=== PATIENT | female | born 1945 | race Caucasian/White ===

== ENCOUNTER 2018-01-08 10:19 | Day surgery (SDC) | payer MEDICARE, OTHER ==
[2018-01-04 13:22] VITALS: BMI 29.6
[~2018-01-08 10:19] MED LIST: LACTATED RINGERS 1,000 ML IV SCH
[2018-01-08 11:11] VITALS: RESP 16; TEMP 98.1
[2018-01-08] MEDS ORDERED: LIDOCAINE 1% 20 ML VIAL (10MG/ML) FOR IV START INTRADERMA ONE (11:20)
[2018-01-08] MEDS ORDERED: PROPOFOL 10 MG/ML 20 ML VIAL IV ONE (11:21)
--- NOTE | 2018-01-08 11:35 | P.GSHP ---
History of Present Illness H&P Date: 01/08/18 Chief Complaint: Screening colonoscopy This is a 72-year-old female referred from Dr. Karin Parikh. Patient safe for screening colonoscopy. Her last colonoscopy was over 10 years ago. She has a history of diverticulosis. Past Medical History Past Medical History: GERD/Reflux, Hyperlipidemia, Hypertension, Osteoarthritis (OA) Additional Past Medical History / Comment(s): HX OF KIDNEY STONES, HERNIATED DISCS WITH BACK PAIN, IBS, GOUT. History of Any Multi-Drug Resistant Organisms: None Reported Past Surgical History: Appendectomy, Hysterectomy, Orthopedic Surgery Additional Past Surgical History / Comment(s): RIGHT KNEE SURGERY Past Anesthesia/Blood Transfusion Reactions: Postoperative Nausea & Vomiting ( PONV) Past Psychological History: No Psychological Hx Reported Additional Psychological History / Comment(s): . Smoking Status: Never smoker Past Alcohol Use History: None Reported Past Drug Use History: None Reported - Past Family History Son(s) Family Medical History: Cancer Medications and Allergies Home Medications Medication Instructions Recorded Confirmed Type Cholecalciferol [Vitamin D3] 4,000 units PO DAILY 03/20/14 01/08/18 History Atorvastatin [Lipitor] 40 mg PO HS 05/12/15 01/08/18 History Pantoprazole Sodium 40 mg PO DAILY PRN 05/12/15 01/08/18 History Allopurinol [Zyloprim] 300 mg PO DAILY 10/10/16 01/08/18 History Naproxen Sodium [Aleve] 440 mg PO DAILY PRN 10/10/16 01/04/18 History Indapamide [Lozol] 2.5 mg PO DAILY 01/04/18 01/08/18 History Lisinopril 40 mg PO DAILY 01/04/18 01/08/18 History Allergies Allergy/AdvReac Type Severity Reaction Status Date / Time gabapentin [From Neurontin] AdvReac Nausea & Verified 01/04/18 12:53 Vomiting PAIN MEDS AdvReac Nausea & Uncoded 01/04/18 12:53 Vomiting Surgical - Exam Vital Signs Temp Pulse Resp BP Pulse Ox 98.1 F 86 16 145/87 99 01/08/18 11:09 01/08/18 11:09 01/08/18 11:09 01/08/18 11:09 01/08/18 11:09 - General well developed, no distress - Eyes PERRL - ENT normal pinna - Neck no masses - Respiratory normal expansion - Cardiovascular Rhythm: regular - Abdomen Abdomen: soft, non tender Assessment and Plan Assessment: History diverticulosis. We'll perform screening colonoscopy.
--- NOTE | 2018-01-08 11:56 | P.OP ---
Date of Procedure: 01/08/18 Preoperative Diagnosis: Screening colonoscopy Postoperative Diagnosis: Diverticulosis Procedure(s) Performed: Colonoscopy Anesthesia: MAC Surgeon: Ronny Ferrera Pathology: none sent Condition: stable Disposition: PACU Description of Procedure: The patient's placed on the endoscopy table in the lateral position. She received IV sedation. Digital rectal exam was performed which revealed no abnormalities. The flexible colonoscope was then placed patient anus passed throughout the entire colon. The ileocecal valve was visualized. The cecum, ascending and transverse colon appeared normal. In the descending and sigmoid there is mild to moderate diverticulosis. Scope was then brought back the rectum this appeared normal. Scope was withdrawn for patient.
[2018-01-08 12:11] VITALS: PULSE 77
[2018-01-08 12:23] VITALS: BP 150/71
== END 2018-01-08 12:43 | disposition home or self-care (01) ==
LOC: ORWHC2ENDO 10:19
PROVIDERS: ATTEND Surgery
DX: Z12.11 Encounter for screening for malignant neoplasm of colon (principal); K57.30 Diverticulosis of large intestine without perforation or abscess without bleeding; K21.9 Gastro-esophageal reflux disease without esophagitis; E78.5 Hyperlipidemia, unspecified; I10 Essential (primary) hypertension; M19.90 Unspecified osteoarthritis, unspecified site; K58.9 Irritable bowel syndrome, unspecified; M10.9 Gout, unspecified; Z79.899 Other long term (current) drug therapy; Z88.8 Allergy status to other drugs, medicaments and biological substances
CPT/HCPCS: J2704; G0121; 45378

== ENCOUNTER → 2018-07-05 | Outpatient (CLI) | payer MEDICARE, OTHER ==
--- NOTE | 2018-07-05 17:26 | MR ---
EXAMINATION TYPE: MR lumbar spine wo/w con DATE OF EXAM: 07/05/2018 COMPARISON: NONE HISTORY: Back pain Contrast: 10 mL Gadavist TECHNIQUE: T1 and T2 axial and sagittal, postcontrast T1 axial and sagittal images of the lumbar spi ne are submitted. FINDINGS: There is no abnormal signal seen within the visualized spinal cord. There is a complex mass off the posterior left kidney which is stable dating back to a CT scan of 06/11/2013 suggestive of an angiomyolipoma. Multiple vertebral body hemangiomas are noted. There is anterior spurring at multipl e levels.. At T12-L1 there is posterior spondylosis there is broad-based central disc bulging. Facet arthropathy and ligamentum flavum hypertrophy noted. Mild bilateral foraminal encroachment. At L1-2 there is broad-based disc bulging greater paracentrally to the right. Moderate bilateral fora jasmine encroachment. Borderline central stenosis facet arthropathy and ligamentum flavum hypertrophy. At L2-3 there is degenerative disc disease with facet arthropathy and ligamentum flavum hypertrophy. Broad-based disc protrusion with moderate bilateral foraminal encroachment and mild central stenosis. At L3-4 there is degenerative disc disease with severe hypertrophic change of the ligamentum flavum a nd facets. Broad-based disc protrusion with severe spinal stenosis and bilateral foraminal encroachme nt. At L4-5 there is degenerative disc disease, diffuse disc bulging with severe facet arthropathy. There is severe bilateral foraminal and mild central stenosis. At L5-S1 there is severe degenerative disc disease with circumferential disc bulging and facet arthro marivel. Mild to moderate bilateral foraminal encroachment. Mild effacement of thecal sac and borderlin e central stenosis. IMPRESSION: 1. Multilevel degenerative disc disease with multilevel disc protrusions and hypertrophic changes res ulting in multilevel spinal stenosis and significant foraminal encroachment. Most marked findings are seen at the L3-L4 with broad-based disc protrusion or herniation in combination with hypertrophic ch anges result in severe spinal stenosis and bilateral foraminal encroachment. 2. 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
== END ==
LOC: RADMRIMAIN 14:20
PROVIDERS: ATTEND Family Medicine
DX: M48.061 Spinal stenosis, lumbar region without neurogenic claudication (principal); M51.26 Other intervertebral disc displacement, lumbar region; M51.36 Other intervertebral disc degeneration, lumbar region
CPT/HCPCS: 82565; 84520; 72158; 36415; A9581

== ENCOUNTER → 2020-12-14 | Outpatient (CLI) | payer MEDICARE, OTHER ==
--- NOTE | 2020-12-14 13:09 | XR ---
Right hip HISTORY: Pain, remote history of trauma 2 views of the right hip There is marginal spurring present, mild joint space loss is questioned. Alignment is maintained, the re is no fracture or dislocation. There are dense vascular calcifications noted incidentally. Bone mi neralization may be slightly reduced. IMPRESSION: Osteoarthritis.
--- NOTE | 2020-12-14 13:18 | XR ---
Lumbar spine HISTORY: Back pain, trauma 2 months prior 3 views of the lumbar spine, correlation CT scan dated 07/11/2013 Bone mineralization is reduced. There is multilevel spondylosis. Sclerosis present in the posterior e lements of the lower lumbar spine is noted. Loss of disc height present at intervertebral levels sergio cially L5-S1 with associated vacuum phenomenon. There are dense vascular calcifications noted within the aorta. There is a regular calcification noted in the paraspinal location overlying the posterior T11-T12 rib space measuring at least 6.5 cm in cephalad to caudal dimension by 2.5 cm in transverse d imension which is incompletely visualized and may be due to renal mass. There is no acute fracture or subluxation. Osteopenia, degenerative disc disease and facet arthropath y. Indeterminate calcification may be associated with a left renal mass.
--- NOTE | 2020-12-14 14:12 | XR ---
Cervical spine HISTORY: Neck pain, trauma 2 months prior 4 views of the cervical spine Correlation to prior exam 10/10/2016 There is multilevel facet arthropathy change. Atherosclerotic vascular calcifications seen in the dis tribution of the carotid arteries. Aorta is dense. Odontoid view is limited. There is multilevel spondylosis. Some loss of disc height is present greate st at C5-6, C6-7 similar to prior exam. Cervical vertebral bodies show preserved height and alignment . Prevertebral soft tissues are normal. Bone mineralization is reduced. IMPRESSION: No acute fracture or subluxation. Degenerative disc disease and facet arthropathy, osteop enia. Additional findings above.
== END | disposition home or self-care (01) ==
LOC: RADXRMAIN 09:29
PROVIDERS: ATTEND Family Medicine
DX: M16.11 Unilateral primary osteoarthritis, right hip (principal); M50.30 Other cervical disc degeneration, unspecified cervical region; M85.88 Other specified disorders of bone density and structure, other site; M25.551 Pain in right hip
CPT/HCPCS: 72040; 72100; 73501

== ENCOUNTER → 2021-06-03 | Outpatient (CLI) | payer MEDICARE, OTHER ==
--- NOTE | 2021-06-07 09:57 | MM ---
Reason for exam: screening (asymptomatic). Last mammogram was performed 1 year and 6 months ago. History: Patient is postmenopausal. Benign excisional biopsy of the right breast. Took estrogen for 2 years beginning at age 49. Took progesterone for 2 years beginning at age 49. Physical Findings: A clinical breast exam by your physician is recommended on an annual basis and results should be correlated with mammographic findings. MG 3D Screening Mammo W/Cad Bilateral CC and MLO view(s) were taken. Prior study comparison: November 28, 2019, bilateral MG 3d screening mammo w/cad. September 19, 2018, bilateral MG 3d screening mammo w/cad. There are scattered fibroglandular densities. No significant changes when compared with prior studies. ASSESSMENT: Benign, BI-RAD 2 RECOMMENDATION: Routine screening mammogram of both breasts in 1 year.
== END | disposition home or self-care (01) ==
LOC: RADMAMWWP 12:27
PROVIDERS: ATTEND Family Medicine
DX: Z12.31 Encounter for screening mammogram for malignant neoplasm of breast (principal); Z78.0 Asymptomatic menopausal state; Z79.818 Long term (current) use of other agents affecting estrogen receptors and estrogen levels
CPT/HCPCS: 77063; 77067

== ENCOUNTER 2022-02-11 20:08 | Inpatient (IN) | payer MEDICARE, OTHER ==
[2022-02-11] MEDS ORDERED: METOCLOPRAMIDE 5 MG/ML 2 ML VIAL IVP STA (20:55)
[2022-02-11] MEDS ORDERED: diphenhydrAMINE 50 MG/ML 1 ML VIAL IVP STA (20:55)
[2022-02-11] MEDS ORDERED: HYDROmorphone 1 MG/ML 1 ML SYRINGE IVP STA (20:56)
--- NOTE | 2022-02-11 21:41 | XR ---
EXAMINATION TYPE: XR Hip LT and AP Pelvis DATE OF EXAM: 02/11/2022 9:19 PM INDICATION: Patient age:Female; 76 years old; Reason for study: hip fracture, fall; COMPARISON: None. TECHNIQUE: The left hip was examined in the frontal and lateral projections and a AP pelvis. FINDINGS: Acute fracture through the left proximal hip intertrochanteric region with varus deformity. No additional fractures identified. Pelvic fluid was present. There is degenerative changes of the h ips bilaterally with sclerosis and some early subchondral cystic change. Multilevel disc degeneration changes throughout the spine. IMPRESSION: Acute left proximal femur intertrochanteric fracture with varus deformity.
--- NOTE | 2022-02-11 21:45 | XR ---
EXAMINATION TYPE: XR chest 1V DATE OF EXAM: 02/11/2022 9:19 PM COMPARISON: None TECHNIQUE: XR chest 1V Frontal view of the chest. CLINICAL INDICATION:Female, 76 years old with history of Fall; FINDINGS: Lungs/Pleura: There is no evidence of pleural effusion, focal consolidation, or pneumothorax. Pulmonary vascularity: Unremarkable. Heart/mediastinum: Cardiomediastinal silhouette is unremarkable. Musculoskeletal: No acute osseous pathology. IMPRESSION: No acute cardiopulmonary disease/process.
--- NOTE | 2022-02-11 21:46 | ED ---
Fall HPI - General Chief Complaint: Fall Stated Complaint: Fall, Hip Injury Time Seen by Provider: 02/11/22 20:15 Source: EMS Mode of arrival: EMS - History of Present Illness Initial Comments: 76-year-old female with past medical history of hypertension, hyperlipidemia presents the emergency department after she had a fall. Patient reports to chronic right leg pain. States that her right leg gave out on her and she fell on the right side. Her to snap in her left hip. Patient was unable to get up and ambulate. She fell down onto a carpeted floor. Denies hitting her head. No neck or back pain. EMS was called and she was placed in c-collar. She was given form of grams of morphine for pain control and 4 mg of Zofran for nausea. Patient comes in shortened and rotated. Pulses are palpable. She follows with Dr. Hodge for chronic back pain. No other alleviating, precipitating or modifying factors - Related Data Home Medications Medication Instructions Recorded Confirmed Cholecalciferol [Vitamin D3] 2,000 units PO DAILY 03/20/14 02/11/22 Atorvastatin [Lipitor] 40 mg PO HS 05/12/15 02/11/22 Pantoprazole Sodium 40 mg PO DAILY PRN 05/12/15 02/11/22 allopurinoL [Zyloprim] 300 mg PO DAILY 10/10/16 02/11/22 Indapamide [Lozol] 2.5 mg PO DAILY 01/04/18 02/11/22 lisinopriL 40 mg PO DAILY 01/04/18 02/11/22 Baclofen [Lioresal] 10 mg PO HS 02/11/22 02/11/22 Naproxen 500 mg PO DAILY 02/11/22 02/11/22 Pioglitazone [Actos] 15 mg PO DAILY@1200 02/11/22 02/11/22 diphenhydrAMINE [Benadryl] 25 mg PO DAILY 02/11/22 02/11/22 Allergies Allergy/AdvReac Type Severity Reaction Status Date / Time gabapentin [From Neurontin] AdvReac Nausea & Verified 02/11/22 21:59 Vomiting PAIN MEDS AdvReac Nausea & Uncoded 02/11/22 20:13 Vomiting Review of Systems ROS Statement: Those systems with pertinent positive or pertinent negative responses have been documented in the HPI. ROS Other: All systems not noted in ROS Statement are negative. Past Medical History Past Medical History: GERD/Reflux, Hyperlipidemia, Hypertension, Osteoarthritis (OA) Additional Past Medical History / Comment(s): HX OF KIDNEY STONES, HERNIATED DISCS WITH BACK PAIN, IBS, GOUT. History of Any Multi-Drug Resistant Organisms: None Reported Past Surgical History: Appendectomy, Hysterectomy, Orthopedic Surgery Additional Past Surgical History / Comment(s): RIGHT KNEE SURGERY Past Anesthesia/Blood Transfusion Reactions: Postoperative Nausea & Vomiting (PONV) Past Psychological History: No Psychological Hx Reported Smoking Status: Never smoker Past Alcohol Use History: None Reported Past Drug Use History: None Reported - Past Family History Son(s) Family Medical History: Cancer General Exam Limitations: no limitations General appearance: alert, in no apparent distress Head exam: Present: atraumatic, normocephalic, normal inspection Eye exam: Present: normal appearance, PERRL, EOMI. Absent: scleral icterus, conjunctival injection, periorbital swelling ENT exam: Present: normal exam, mucous membranes moist Neck exam: Present: normal inspection. Absent: tenderness, meningismus, lymphadenopathy Respiratory exam: Present: normal lung sounds bilaterally. Absent: respiratory distress, wheezes, rales, rhonchi, stridor Cardiovascular Exam: Present: regular rate, normal rhythm, normal heart sounds. Absent: systolic murmur, diastolic murmur, rubs, gallop, clicks GI/Abdominal exam: Present: soft, normal bowel sounds. Absent: distended, tenderness, guarding, rebound, rigid Extremities exam: Present: tenderness (left hip tenderness to palpation. left hip shortened and rotated. palpable DP and PT pulses bilaterally), normal cap illary refill, joint swelling. Absent: pedal edema, calf tenderness Back exam: Present: normal inspection Neurological exam: Present: alert, oriented X3, CN II-XII intact Psychiatric exam: Present: normal affect, normal mood Skin exam: Present: warm, dry, intact, normal color. Absent: rash Course Vital Signs 02/11/22 02/11/22 02/12/22 20:13 22:57 05:40 Temperature 98 F Pulse Rate 102 H 78 78 Respiratory 16 16 16 Rate Blood Pressure 158/69 132/62 160/88 O2 Sat by Pulse 98 98 96 Oximetry Medical Decision Making - Medical Decision Making Upon arrival patient is placed into room 11. A thorough history and physical exam is performed. Pulses are palpable in the patient's foot. She is given 1 mg of Dilaudid for pain control, 10 mg of Reglan and 25 mg of Benadryl. Patient does go over for x-ray imaging which demonstrates a left IT fracture. This is discussed with Dr. Walsh who agrees to admit the patient. Pain and nausea medications ordered for overnight. Patient remained in stable condition awaiting a bed - Lab Data Result diagrams: 02/13/22 14:46 02/13/22 06:11 Lab Results 02/11/22 02/11/22 02/11/22 Range/Units 21:54 21:54 21:54 WBC 11.7 H (3.8-10.6) k/uL RBC 3.62 L (3.80-5.40) m/uL Hgb 11.5 (11.4-16.0) gm/dL Hct 37.1 (34.0-46.0) % MCV 102.4 H (80.0-100.0) fL MCH 31.7 (25.0-35.0) pg MCHC 30.9 L (31.0-37.0) g/dL RDW 15.6 H (11.5-15.5) % Plt Count 246 (150-450) k/uL MPV 8.8 Neutrophils % 74 % Lymphocytes % 18 % Monocytes % 6 % Eosinophils % 1 % Basophils % 0 % Neutrophils # 8.6 H (1.3-7.7) k/uL Lymphocytes # 2.1 (1.0-4.8) k/uL Monocytes # 0.7 (0-1.0) k/uL Eosinophils # 0.1 (0-0.7) k/uL Basophils # 0.0 (0-0.2) k/uL Hypochromasia Slight Macrocytosis Slight PT 10.6 (9.0-12.0) sec INR 1.0 (<1.2) APTT 21.8 L (22.0-30.0) sec Sodium 140 (137-145) mmol/L Potassium 4.4 (3.5-5.1) mmol/L Chloride 105 (98-107) mmol/L Carbon Dioxide 30 (22-30) mmol/L Anion Gap 5 mmol/L BUN 42 H (7-17) mg/dL Creatinine 1.09 H (0.52-1.04) mg/dL Est GFR (CKD-EPI)AfAm 58 (>60 ml/min/1.73 sqM) Est GFR (CKD-EPI)NonAf 50 (>60 ml/min/1.73 sqM) Glucose 129 H (74-99) mg/dL Calcium 9.4 (8.4-10.2) mg/dL Total Bilirubin 0.5 (0.2-1.3) mg/dL AST 25 (14-36) U/L ALT 26 (4-34) U/L Alkaline Phosphatase 88 (38-126) U/L Total Protein 6.1 L (6.3-8.2) g/dL Albumin 3.8 (3.5-5.0) g/dL Disposition Clinical Impression: Fall, Hip fracture, left Disposition: ADMITTED IP TO THIS [facility] Condition: Stable Is patient prescribed a controlled substance at d/c from ED?: No Decision to Admit Reason: Admit from EC Decision Date: 02/11/22 Decision Time: 22:10
[2022-02-11 21:58] LABS: Basophils % (A) 0 %; Eosinophils # (A) 0.1 k/uL (0-0.7); Eosinophils % (A) 1 %; HCT 37.1 % (34.0-46.0); HGB 11.5 gm/dL (11.4-16.0); Hypochromasia Slight; Lymphocytes # (A) 2.1 k/uL (1.0-4.8); Lymphocytes % (A) 18 %; MCH 31.7 pg (25.0-35.0); MCHC 30.9 g/dL (31.0-37.0); MCV 102.4 fL (80.0-100.0); Macrocytosis Slight; Mean Platelet Volume 8.8; Monocytes # (A) 0.7 k/uL (0-1.0); Monocytes % (A) 6 %; Neutrophils # (A) 8.6 k/uL (1.3-7.7); Neutrophils % (A) 74 %; Platelet Count 246 k/uL (150-450); RBC 3.62 m/uL (3.80-5.40); RDW 15.6 % (11.5-15.5); WBC 11.7 k/uL (3.8-10.6)
[2022-02-11 22:07] LABS: Albumin 3.8 g/dL (3.5-5.0); Calcium 9.4 mg/dL (8.4-10.2); Potassium 4.4 mmol/L (3.5-5.1); Total Bilirubin 0.5 mg/dL (0.2-1.3); Total Protein 6.1 g/dL (6.3-8.2)
[2022-02-11] MEDS ORDERED: NALOXONE 0.4 MG/ML 1 ML VIAL IV PRN (22:10)
[2022-02-11 22:25] LABS: Partial Thromboplastin Time 21.8 sec (22.0-30.0); Prothrombin Time 10.6 sec (9.0-12.0)
[2022-02-11] MEDS ORDERED: PANTOPRAZOLE 40 MG TABLET PO PRN (23:29)
[2022-02-12] MEDS: ONDANSETRON 4 MG/2 ML VIAL IVP PRN ×3 (01:53→16:59)
[2022-02-12] MEDS: HYDROmorphone 1 MG/ML 1 ML SYRINGE IVP PRN ×3 (01:53→16:59)
[2022-02-12] MEDS: ATORVASTATIN 40 MG TAB PO SCH ×2 (01:54→21:33)
[2022-02-12] MEDS: BACLOFEN 10 MG TAB PO SCH ×2 (01:54→21:33)
[2022-02-12 06:37] LABS: Basophils % (A) 0 %; Eosinophils % (A) 0 %; HCT 34.7 % (34.0-46.0); HGB 10.7 gm/dL (11.4-16.0); Hypochromasia Moderate; Lymphocytes # (A) 1.1 k/uL (1.0-4.8); Lymphocytes % (A) 8 %; MCH 31.9 pg (25.0-35.0); MCHC 30.8 g/dL (31.0-37.0); MCV 103.8 fL (80.0-100.0); Macrocytosis Moderate; Mean Platelet Volume 8.4; Monocytes # (A) 0.7 k/uL (0-1.0); Monocytes % (A) 5 %; Neutrophils # (A) 12.5 k/uL (1.3-7.7); Neutrophils % (A) 87 %; Platelet Count 228 k/uL (150-450); RBC 3.34 m/uL (3.80-5.40); RDW 15.6 % (11.5-15.5); WBC 14.3 k/uL (3.8-10.6)
[2022-02-12 06:52] LABS: Calcium 9.4 mg/dL (8.4-10.2); Potassium 4.4 mmol/L (3.5-5.1)
[2022-02-12] MEDS: CHOLECALCIFEROL 25 MCG (1000 IU) TABLET PO SCH (08:51)
[2022-02-12] MEDS: lisinopriL 20 MG TAB PO SCH (08:51)
[2022-02-12] MEDS: diphenhydrAMINE 25 MG CAP PO SCH (08:51)
[2022-02-12] MEDS: allopurinoL 300 MG TAB PO SCH (08:51)
[2022-02-12] MEDS: hydroCHLOROthiazide 25 MG TAB PO SCH (08:51)
--- NOTE | 2022-02-12 09:52 | P.HPOR ---
History of Present Illness H&P Date: 02/12/22 Chief Complaint: Left hip pain This is a 76-year-old female who fell in her home late in the evening on 02/11/2022. She states that she fell onto her right side but had immediate left hip pain. On exam and x-ray in the emergency department she was found to have an intertrochanteric fracture of the left hip. She denies history of left hip pain prior to the fall. She denies history of cancer or metastatic disease. She denies head injury or loss of consciousness in the fall. She has no neck or upper extremity pain. We were consulted for orthopedic evaluation and she is admitted to our service for surgical intervention and care. Past Medical History Past Medical History: GERD/Reflux, Hyperlipidemia, Hypertension, Osteoarthritis (OA) Additional Past Medical History / Comment(s): HX OF KIDNEY STONES, HERNIATED DISCS WITH BACK PAIN, IBS, GOUT. History of Any Multi-Drug Resistant Organisms: None Reported Past Surgical History: Appendectomy, Hysterectomy, Orthopedic Surgery Additional Past Surgical History / Comment(s): RIGHT KNEE SURGERY Past Anesthesia/Blood Transfusion Reactions: Postoperative Nausea & Vomiting (PONV) Past Psychological History: No Psychological Hx Reported Smoking Status: Never smoker Past Alcohol Use History: None Reported Past Drug Use History: None Reported - Past Family History Son(s) Family Medical History: Cancer Medications and Allergies Home Medications Medication Instructions Recorded Confirmed Type Cholecalciferol [Vitamin D3] 2,000 units PO DAILY 03/20/14 02/11/22 History Atorvastatin [Lipitor] 40 mg PO HS 05/12/15 02/11/22 History Pantoprazole Sodium 40 mg PO DAILY PRN 05/12/15 02/11/22 History allopurinoL [Zyloprim] 300 mg PO DAILY 10/10/16 02/11/22 History Indapamide [Lozol] 2.5 mg PO DAILY 01/04/18 02/11/22 History lisinopriL 40 mg PO DAILY 01/04/18 02/11/22 History Baclofen [Lioresal] 10 mg PO HS 02/11/22 02/11/22 History Naproxen 500 mg PO DAILY 02/11/22 02/11/22 History Pioglitazone [Actos] 15 mg PO DAILY@1200 02/11/22 02/11/22 History diphenhydrAMINE [Benadryl] 25 mg PO DAILY 02/11/22 02/11/22 History Allergies Allergy/AdvReac Type Severity Reaction Status Date / Time gabapentin [From Neurontin] AdvReac Nausea & Verified 02/11/22 21:59 Vomiting PAIN MEDS AdvReac Nausea & Uncoded 02/11/22 20:13 Vomiting Physical Examination This is a pleasant 76-year-old female in no acute distress. She is alert and oriented 3. Exam of the head neck reveal no obvious deformity. She has full cervical spine motion without difficulty or pain. Exam of the upper extremities reveals no obvious deformity. She has full shoulder, elbow, wrist and finger motion bilaterally. Neurovascular status to the upper extremities is intact. Exam of the lower extremities reveals shortening and external rotation of the left leg. She has full foot and ankle motion bilaterally. Neurovascular status to the lower extremities is intact. Results X-rays of the pelvis and left hip reveal a slightly displaced intertrochanteric fracture of the left hip. - Labs Labs: Abnormal Lab Results - Last 24 Hours (Table) 02/11/22 02/11/22 02/11/22 Range/Units 21:54 21:54 21:54 WBC 11.7 H (3.8-10.6) k/uL RBC 3.62 L (3.80-5.40) m/uL Hgb (11.4-16.0) gm/dL MCV 102.4 H (80.0-100.0) fL MCHC 30.9 L (31.0-37.0) g/dL RDW 15.6 H (11.5-15.5) % Neutrophils # 8.6 H (1.3-7.7) k/uL APTT 21.8 L (22.0-30.0) sec BUN 42 H (7-17) mg/dL Creatinine 1.09 H (0.52-1.04) mg/dL Glucose 129 H (74-99) mg/dL Total Protein 6.1 L (6.3-8.2) g/dL 02/12/22 02/12/22 Range/Units 05:33 05:33 WBC 14.3 H (3.8-10.6) k/uL RBC 3.34 L (3.80-5.40) m/uL Hgb 10.7 L (11.4-16.0) gm/dL MCV 103.8 H (80.0-100.0) fL MCHC 30.8 L (31.0-37.0) g/dL RDW 15.6 H (11.5-15.5) % Neutrophils # 12.5 H (1.3-7.7) k/uL APTT (22.0-30.0) sec BUN 33 H (7-17) mg/dL Creatinine (0.52-1.04) mg/dL Glucose 154 H (74-99) mg/dL Total Protein (6.3-8.2) g/dL H & H 02/11/22 02/12/22 Range/Units 21:54 05:33 Hgb 11.5 10.7 L (11.4-16.0) gm/dL Hct 37.1 34.7 (34.0-46.0) % Coagulation 02/11/22 Range/Units 21:54 INR 1.0 (<1.2) Result Diagrams: 02/12/22 05:33 02/12/22 05:33 Assessment and Plan (1) Intertrochanteric fracture of left hip Current Visit: Yes Status: Acute Code(s): S72.142A - DISPLACED INTERTROCHANTERIC FRACTURE OF LEFT FEMUR, INIT SNOMED Code(s): 392087120 (2) Fall Current Visit: Yes Status: Acute Code(s): W19.XXXA - UNSPECIFIED FALL, INITIAL ENCOUNTER SNOMED Code(s): 1910831 Plan: The clinical and x-ray findings are discussed with the patient. It is recommen ded that she undergo closed reduction with insertion of intertrochanteric nail left hip. The procedures discussed in detail including the possible risks and outcomes. We discussed the potential need for inpatient rehab postoperatively. After discussion and consideration the patient elects to proceed with the surgery. She is tentatively scheduled for 8:00 am tomorrow pending medical clearance.
[2022-02-12] MEDS: METOCLOPRAMIDE 5 MG/ML 2 ML VIAL IVP PRN (18:00)
--- NOTE | 2022-02-12 22:38 | P.CONS ---
History of Present Illness - Reason for Consult Consult date: 02/12/22 Medical management - Chief Complaint Fall - History of Present Illness 76-year-old female with a known history of hypertension, hyperlipidemia, GERD, osteoarthritis and history of renal stones presents to ER status post fall. Patient states that she does have chronic right leg pain and her legs gave away and fell on the right side. Patient was unable to get up and ambulate. Patient fell on the carpeted floor. Denied hitting her head. No complaints of neck pain or back pain. No headache or dizziness or lightheadedness. No chest pain or shortness of breath. EMS was called and placed on c-collar. X-ray of the pelvis hip showed acute left proximal femur intertrochanteric fracture with varus deformity. Chest x-ray showed no acute cardiopulmonary disease. Laboratory data showed WBC 11.7 hemoglobin 11.5 and platelets 246. MCV 102.4 Sodium 140 potassium 4.4 chloride 105 bicarb is 30 BUN 42 and creatinine 1.09 and blood sugar is 129 albumin 3.8 Review of Systems Constitutional: Patient denies any fever or chills . No generalized weakness or weight loss. Abdomen: Patient denied nausea vomiting and diarrhea and abdominal pain. Cardiovascular: Patient denies any chest pain or short of breath no palpitations. Respiratory: patient denied any cough or sputum production. No shortness of breath Neurologic: Patient denied any numbness or tingling headache. Musculoskeletal: Patient does complain of left hip pain. Skin: Negative Psychiatric: Negative Endocrine: No heat or cold intolerance. No recent weight gain. Genitourinary: No dysuria or hematuria. All other 14 point ROS negative except the above Past Medical History Past Medical History: GERD/Reflux, Hyperlipidemia, Hypertension, Osteoarthritis (OA) Additional Past Medical History / Comment(s): HX OF KIDNEY STONES, HERNIATED DISCS WITH BACK PAIN, IBS, GOUT. History of Any Multi-Drug Resistant Organisms: None Reported Past Surgical History: Appendectomy, Hysterectomy, Orthopedic Surgery Additional Past Surgical History / Comment(s): RIGHT KNEE SURGERY Past Anesthesia/Blood Transfusion Reactions: Postoperative Nausea & Vomiting (PONV) Past Psychological History: No Psychological Hx Reported Smoking Status: Never smoker Past Alcohol Use History: None Reported Past Drug Use History: None Reported - Past Family History Son(s) Family Medical History: Cancer Medications and Allergies Home Medications Medication Instructions Recorded Confirmed Type Cholecalciferol [Vitamin D3] 2,000 units PO DAILY 03/20/14 02/11/22 History Atorvastatin [Lipitor] 40 mg PO HS 05/12/15 02/11/22 History Pantoprazole Sodium 40 mg PO DAILY PRN 05/12/15 02/11/22 History allopurinoL [Zyloprim] 300 mg PO DAILY 10/10/16 02/11/22 History Indapamide [Lozol] 2.5 mg PO DAILY 01/04/18 02/11/22 History lisinopriL 40 mg PO DAILY 01/04/18 02/11/22 History Baclofen [Lioresal] 10 mg PO HS 02/11/22 02/11/22 History Naproxen 500 mg PO DAILY 02/11/22 02/11/22 History Pioglitazone [Actos] 15 mg PO DAILY@1200 02/11/22 02/11/22 History diphenhydrAMINE [Benadryl] 25 mg PO DAILY 02/11/22 02/11/22 History Allergies Allergy/AdvReac Type Severity Reaction Status Date / Time gabapentin [From Neurontin] AdvReac Nausea & Verified 02/11/22 21:59 Vomiting PAIN MEDS AdvReac Nausea & Uncoded 02/11/22 20:13 Vomiting Physical Exam Vitals: Vital Signs Temp Pulse Pulse Resp BP BP Pulse Ox 02/12/22 07:56 98.6 F 91 19 132/74 93 L 02/12/22 05:40 98 F 78 16 160/88 96 02/11/22 22:57 78 16 132/62 98 02/11/22 20:13 102 H 16 158/69 98 Intake and Output 02/11/22 02/12/22 02/12/22 22:59 06:59 14:59 Output Total 0 Balance 0 Output: Urine 0 Other: Voiding Method External Catheter Weight 89.358 kg PHYSICAL EXAMINATION: Patient is lying in the bed comfortably, no acute distress, awake alert and oriented.. HEENT: Normocephalic. Neck is supple. Pupils reactive. Nostrils clear. Oral cavity is moist. Neck reveals no JVD, carotid bruits, or thyromegaly. CHEST EXAMINATION: Trachea is central. Symmetrical expansion. Lung karimi clear to auscultation and percussion. CARDIAC: Normal S1, S2 with no gallops. No murmurs ABDOMEN: Soft. Bowel sounds normal. No organomegaly. No abdominal bruits. Extremities: reveal no edema. No clubbing or cyanosis Neurologically awake, alert, oriented x3 with well-coordinated movements. No focal deficits noted Skin: No rash or skin lesions. Psychiatric: Cooperative. Nonsuicidal Musculoskeletal: Patient does have left leg varus deformity. Tenderness over the left hip. Decreased range of motion. Results CBC & Chem 7: 02/12/22 05:33 02/12/22 05:33 Labs: Abnormal Lab Results - Last 24 Hours (Table) 02/11/22 02/11/22 02/11/22 Range/Units 21:54 21:54 21:54 WBC 11.7 H (3.8-10.6) k/uL RBC 3.62 L (3.80-5.40) m/uL Hgb (11.4-16.0) gm/dL MCV 102.4 H (80.0-100.0) fL MCHC 30.9 L (31.0-37.0) g/dL RDW 15.6 H (11.5-15.5) % Neutrophils # 8.6 H (1.3-7.7) k/uL APTT 21.8 L (22.0-30.0) sec BUN 42 H (7-17) mg/dL Creatinine 1.09 H (0.52-1.04) mg/dL Glucose 129 H (74-99) mg/dL Total Protein 6.1 L (6.3-8.2) g/dL 02/12/22 02/12/22 Range/Units 05:33 05:33 WBC 14.3 H (3.8-10.6) k/uL RBC 3.34 L (3.80-5.40) m/uL Hgb 10.7 L (11.4-16.0) gm/dL MCV 103.8 H (80.0-100.0) fL MCHC 30.8 L (31.0-37.0) g/dL RDW 15.6 H (11.5-15.5) % Neutrophils # 12.5 H (1.3-7.7) k/uL APTT (22.0-30.0) sec BUN 33 H (7-17) mg/dL Creatinine (0.52-1.04) mg/dL Glucose 154 H (74-99) mg/dL Total Protein (6.3-8.2) g/dL Assessment and Plan Assessment: Left proximal femur intertrochanteric fracture. Status post fall likely mechanical. Leukocytosis likely reactive. Rule out infection. Macrocytosis Hypertension Hyperlipidemia Diabetes type 2 [id number] Osteoarthritis GERD DVT prophylaxis. Plan: Patient will be continued on pain management, bowel regimen. Encourage incentive spirometry. Patient does not have any prior history of coronary artery disease or chronic kidney disease. No history of stroke. Currently denies any complaints of chest discomfort. No shortness of breath. Patient is at low risk for moderate risk orthopedic surgery. Will continue to follow closely and further recommendations based on the clinical course. Thank you for your consult. Time with Patient: Greater than 30
[2022-02-13] MEDS: METOCLOPRAMIDE 5 MG/ML 2 ML VIAL IVP PRN ×2 (02:34→20:46)
[2022-02-13] MEDS: HYDROmorphone 1 MG/ML 1 ML SYRINGE IVP PRN (02:36)
[2022-02-13 05:39] LABS: Appearance,Urine Clear (Clear); Bilirubin,Urine Negative (Negative); Blood,Urine Negative (Negative); Color,Urine Yellow; Glucose,Urine (UA) Negative (Negative); Ketones,Urine Negative (Negative); Leukocyte Esterase,Urine Negative (Negative); Nitrite,Urine Negative (Negative); Protein,Urine Negative (Negative); Urobilinogen,Urine <2.0 mg/dL (<2.0)
[2022-02-13] MEDS: diphenhydrAMINE 25 MG CAP PO SCH (07:31)
[2022-02-13] MEDS: CHOLECALCIFEROL 25 MCG (1000 IU) TABLET PO SCH (07:31)
[2022-02-13] MEDS: allopurinoL 300 MG TAB PO SCH (07:31)
[2022-02-13] MEDS: hydroCHLOROthiazide 25 MG TAB PO SCH (07:32)
[2022-02-13] MEDS: lisinopriL 20 MG TAB PO SCH (07:32)
[2022-02-13] MEDS ORDERED: LACTATED RINGERS 1,000 ML IV ONE (08:07)
[2022-02-13] MEDS ORDERED: SODIUM CHLORIDE 0.9% 100 ML with ceFAZolin 2,000 MG IV ONE ×2 (08:30)
[2022-02-13 09:14] LABS: Basophils # (A) 0.01 X 10*3/uL (0.00-0.10); Basophils % (A) 0.1 %; Eosinophils # (A) 0.02 X 10*3/uL (0.04-0.35); Eosinophils % (A) 0.1 %; HCT 32.3 % (37.2-46.3); HGB 10.3 g/dL (12.0-15.0); Immature Grans, Automated 0.5 %; Lymphocytes % (A) 9.5 %; MCH 32.9 pg (27.0-32.0); MCHC 31.9 g/dL (32.0-37.0); MCV 103.2 fL (80.0-97.0); Monocytes # (A) 1.32 X 10*3/uL (0.20-1.00); Monocytes % (A) 9.6 %; NRBC Per 100 WBC 0 /100 WBCS (0.0-0.0); Neutrophils % (A) 80.2 %; Platelet Count 223 X 10*3/uL (140-440); RBC 3.13 X 10*6/uL (4.10-5.20); RDW 15.8 % (11.5-14.5); WBC 13.72 X 10*3/uL (4.50-10.00)
[2022-02-13 09:38] LABS: African American GFR (CKD) 91.9 (60.0-200.0); Anion Gap 11.6 mmol/L (10.00-18.00); BUN/Creat Ratio 28.38 Ratio (12.00-20.00); Calcium 9.5 mg/dL (8.7-10.3); Carbon Dioxide 29.2 mmol/L (20.0-27.5); Non-African American GFR(CKD) 79.3 (60.0-200.0); Potassium 4.3 mmol/L (3.5-5.5)
[2022-02-13] MEDS ORDERED: TEMAZEPAM 15 MG CAP PO PRN (10:31)
[2022-02-13] MEDS ORDERED: NALOXONE 0.4 MG/ML 1 ML VIAL IV PRN (10:31)
[2022-02-13] MEDS ORDERED: MAGNESIUM HYDROXIDE 2,400 MG/10 ML CUP PO PRN (10:31)
[2022-02-13] MEDS ORDERED: HYDROmorphone 0.5 MG/0.5 ML SYRINGE IVP PRN ×3 (10:31)
--- NOTE | 2022-02-13 10:40 | P.OP ---
Date of Procedure: 02/13/22 Preoperative Diagnosis: Left peritrochanteric/subtrochanteric proximal femur fracture Postoperative Diagnosis: Same Procedure(s) Performed: Operative fixation of left subtrochanteric femur fracture with long intramedullary hip screw Implants: Faina gamma nail 63423 mm diameter, 95 mm lag screw, 47.5 mm distal interlocking screw Anesthesia: spinal Surgeon: [place] Guo Database Technician #1: Lauren Cuellar Estimated Blood Loss (ml): 200 IV fluids (ml): 1,000 Pathology: none sent Condition: stable Disposition: PACU Operative Findings: I met with the patient and their family preoperatively to discuss their injury and treatment options. They have an extra-capsular, intertrochanteric hip fracture and my recommendation was to stabilize the fracture with an intramedullary hip screw to facilitate early mobilization. We discussed the potential risks and complications of this surgical procedure including but certainly not limited to risks from anesthesia, superficial infection, deep infection, fracture nonunion, fracture malunion, hardware failure including broken hardware, varus collapse with lag screw cut out of the femoral head, progression of hip arthritis, limb length discrepancy, symptomatic hardware, need for further surgery including hardware removal and conversion to arthroplasty, DVT, PE, acute coronary event, pressure ulcers, urinary tract infection, failure to thrive, an inability to regain preinjury level of function, and possibly . The patient and their family understand these potential complications and also awknowledge that other less common complications are possible. They provided both their verbal and written consent to go forward with operative fixation of their hip fracture with an intramedullary hip screw. Description of Procedure: The patient was identified in preoperative holding and the correct operative extremity was marked with my initials. I reviewed the consent form with the patient and their family and all of their questions were answered. The patient was then brought back to the operating room by anesthesia. Anesthesia, preoperative antibiotics, and tranexamic acid were given by the anesthesia team while on the [facility]. Both ankles were padded with webril and boots for the Mountain table were applied. The patient was then carefully transferred onto the Mountain table. A perineal post was immediately placed. The contralateral arm was secured on a well-padded arm wills. The ipsilateral arm was draped across the chest and secured with a pillow, foam, and paper tape to allow access to the proximal femur. Nonsterile drapes were applied to the operative extremity. The height of the table was elevated and the contralateral extremity was dropped towards the floor to facilitate imaging. A timeout was performed identifying the correct patient, operative extremity, and procedure. Fluoroscopy was brought in to assess the fracture. A provisional reduction was performed using longitudinal traction, adduction, and internal rotation. An AP and lateral view were obtained to assess the reduction. The operative extremity was then prepped and draped in the standard sterile fashion. A straight incision was made at the tip of the greater trochanter and extended proximally for 3 cm. Skin and subcutaneous tissues were incised sharply. The underlying fascia was incised in line with the skin incision. An awl was placed just medial to the tip of the greater trochanter on the AP view and colinear with the canal on the lateral view. A 3.2 mm guide pin was then advanced into the proximal femur. The position of the guidepin was verified with fluoroscopy. An opening reamer and soft tissue cannula were placed over the guidepin and used to open the proximal femur to the level of the lesser trochanter. The 3.2 mm guide pin and opening reamer were removed. Due to the subtrochanteric nature of the fracture I elected to use a long intramedullary hip screw. A longitudinal incision was made directly at the fracture site and a Tomas clamp was used to hold the fracture reduced. A long ball-tipped guidewire with a bend at the end was then introduced into the proximal femur and seated distally. A measuring device was used to determine the length of the nail. An 11 mm reamer generated chatter and then I reamed in half millimeter increments up to a 12.5 mm reamer. A 400 mm x 11 mm diameter nail was then dispensed and I verified that the trochar through the targeting arm lined up with the slots on the nail. The nail was then impacted into the proximal femur until the appropriate depth had been reached. The trocar was then placed up to the lateral cortex of the femur using the previously placed incision for the Tomas clamp and a guidepin was placed in the low center position on the AP view and centered in the femoral head on the lateral view. Once the position of the guidewire was verified, we reamed to appropriate depth and placed a lag screw over the guidewire and into the femoral head. The position of the lag screw was assessed with fluoroscopy. The guidewire was then removed from the femoral head. The set screw was placed proximally, brought fully down and then released a quarter turn to allow compression. A final stab incision was made over the lateral femur at the site of the distal interlocking screw and a distal interlocking screw was placed using the perfect port lions technique. Final fluoroscopic images were taken showing excellent reduction of the fracture and appropriate position of the implants. All wounds were thoroughly irrigated and closed in layers. Sterile dressings were applied. The drapes were taken down, the patient was transferred off the Mountain table, and was brought to recovery having tolerated the procedure well. Lauren Cuellar PA-C was required as a skilled senior care assistant for patient positioning, retraction, placement of implants, closure of wounds, and application of dressings. PLAN: The patient can weight-bear as tolerated on their operative extremity. 2 doses of postoperative antibiotics. DVT prophylaxis with aspirin 81 mg twice a day starting the day of surgery. Dressing change on postoperative day #2. Appreciate [facility] assistance with perioperative medical management. Discharge planning in process.
--- NOTE | 2022-02-13 11:27 | XR ---
EXAMINATION TYPE: XR femur LT, FL guidance operating room DATE OF EXAM: 02/13/2022 COMPARISON: NONE HISTORY: Hip fracture Fluoroscopy support supplied to the referring clinician. See dictated report from orthopedic surgery , 2 minutes 26 seconds fluoroscopy time, 6 intraoperative C-arm images document the procedure
[2022-02-13] MEDS: HYDROcodone/APAP 5-325MG 1 EACH TAB PO PRN ×2 (13:47→20:44)
[2022-02-13] MEDS: ONDANSETRON 4 MG/2 ML VIAL IVP PRN (13:47)
[2022-02-13 15:16] LABS: Anisocytosis Slight; Basophils % (A) 0 %; Eosinophils % (A) 0 %; HCT 30.5 % (34.0-46.0); HGB 9.5 gm/dL (11.4-16.0); Hypochromasia Moderate; Lymphocytes % (A) 6 %; MCH 32.3 pg (25.0-35.0); MCHC 31.2 g/dL (31.0-37.0); MCV 103.4 fL (80.0-100.0); Macrocytosis Moderate; Mean Platelet Volume 8.6; Monocytes # (A) 1.1 k/uL (0-1.0); Monocytes % (A) 7 %; Neutrophils # (A) 13.8 k/uL (1.3-7.7); Neutrophils % (A) 86 %; Platelet Count 207 k/uL (150-450); RBC 2.95 m/uL (3.80-5.40); WBC 16.1 k/uL (3.8-10.6)
[2022-02-13] MEDS: LACTATED RINGERS 1,000 ML IV SCH ×2 (17:34→23:25)
[2022-02-13] MEDS: BACLOFEN 10 MG TAB PO SCH (20:44)
[2022-02-13] MEDS: ATORVASTATIN 40 MG TAB PO SCH (20:44)
[2022-02-13] MEDS: ASPIRIN 81 MG PO SCH (20:44)
[2022-02-13] MEDS: SENNOSIDES-DOCUSATE SODIUM 1 EACH TAB PO SCH (20:44)
--- NOTE | 2022-02-13 23:52 | P.PN ---
Subjective Progress Note Date: 02/13/22 76-year-old female with a known history of hypertension, hyperlipidemia, GERD, osteoarthritis and history of renal stones presents to ER status post fall. Patient states that she does have chronic right leg pain and her legs gave away and fell on the right side. Patient was unable to get up and ambulate. Patient fell on the carpeted floor. Denied hitting her head. No complaints of neck pain or back pain. No headache or dizziness or lightheadedness. No chest pain or shortness of breath. EMS was called and placed on c-collar. X-ray of the pelvis hip showed acute left proximal femur intertrochanteric fracture with varus deformity. Chest x-ray showed no acute cardiopulmonary disease. Laboratory data showed WBC 11.7 hemoglobin 11.5 and platelets 246. MCV 102.4 Sodium 140 potassium 4.4 chloride 105 bicarb is 30 BUN 42 and creatinine 1.09 and blood sugar is 129 albumin 3.8 02/13/2022 Patient is status post fixation of left subtrochanteric femur fracture with long intramedullary hip screw. Currently lying in the bed. Pain is much better today. No complaints of chest pain or shortness of breath. No nausea vomiting abdominal diarrhea. No dizziness or lightheadedness. Laboratory data showed WBC 13.72 hemoglobin 10.3 and platelets 223 Sodium 144 potassium 4.3 chloride 103 bicarb is 29.2 BUN 21 and creatinine 0.7 and B12 level is 266. Urinalysis negative for infection. Patient has been afebrile. Current medications reviewed. Objective - Vital Signs Vital signs: Vital Signs Temp 99.8 F H 02/13/22 14:14 Pulse 110 H 02/13/22 14:14 Resp 19 02/13/22 14:14 BP 111/69 02/13/22 14:14 Pulse Ox 90 L 02/13/22 14:14 Intake & Output 02/12/22 02/13/22 02/13/22 18:59 06:59 18:59 Intake Total 180 280 Output Total 375 400 200 Balance -195 -400 80 Weight 89.358 kg 89.358 kg Intake: IV 100 Oral 180 180 Output: Urine 375 400 Estimated Blood Loss 200 Other: Voiding Method External Catheter External Catheter External Catheter - Exam PHYSICAL EXAMINATION: Patient is lying in the bed comfortably, no acute distress, awake alert and oriented.. HEENT: Normocephalic. Neck is supple. Pupils reactive. Nostrils clear. Oral cavity is moist. Neck reveals no JVD, carotid bruits, or thyromegaly. CHEST EXAMINATION: Trachea is central. Symmetrical expansion. Lung karimi clear to auscultation and percussion. CARDIAC: Normal S1, S2 with no gallops. No murmurs ABDOMEN: Soft. Bowel sounds normal. No organomegaly. No abdominal bruits. Extremities: reveal no edema. No clubbing or cyanosis Neurologically awake, alert, oriented x3 with well-coordinated movements. No focal deficits noted Skin: No rash or skin lesions. Psychiatric: Cooperative. Nonsuicidal Musculoskeletal: No joint swelling or deformity. Normal range of motion. - Labs CBC & Chem 7: 02/13/22 14:46 02/13/22 06:11 Labs: Abnormal Lab Results - Last 24 Hours (Table) 02/13/22 02/13/22 02/13/22 Range/Units 06:11 06:11 14:46 WBC 13.72 H 16.1 H (4.50-10.00) X 10*3/uL RBC 3.13 L 2.95 L (4.10-5.20) X 10*6/uL Hgb 10.3 L 9.5 L (12.0-15.0) g/dL Hct 32.3 L 30.5 L (37.2-46.3) % MCV 103.2 H 103.4 H (80.0-97.0) fL MCH 32.9 H (27.0-32.0) pg MCHC 31.9 L (32.0-37.0) g/dL RDW 15.8 H 16.0 H (11.5-14.5) % Immature Gran # 0.07 H (0.00-0.04) X 10*3/uL Neutrophils # 11.00 H 13.8 H (1.80-7.70) X 10*3/uL Monocytes # 1.32 H 1.1 H (0.20-1.00) X 10*3/uL Eosinophils # 0.02 L (0.04-0.35) X 10*3/uL Carbon Dioxide 29.2 H (20.0-27.5) mmol/L BUN/Creatinine Ratio 28.38 H (12.00-20.00) Ratio Glucose 147 H (70-110) mg/dL Assessment and Plan Assessment: Left proximal femur intertrochanteric fracture. s/p Fixation on 02/13/22 Status post fall likely mechanical. Leukocytosis likely reactive. Rule out infection. Macrocytosis Hypertension Hyperlipidemia Diabetes type 2 [id number] Osteoarthritis GERD DVT prophylaxis. Plan: Patient will be continued on pain management, bowel regimen. Encourage incentive spirometry. Follow-up CBC. Patient was started on B12 supplementation Will continue to follow closely and further recommendations based on the clinical course.
[2022-02-14] MEDS ORDERED: CYANOCOBALAMIN 1,000 MCG/ML 1 ML VIAL IM SCH (09:00)
[2022-02-14] MEDS: CHOLECALCIFEROL 25 MCG (1000 IU) TABLET PO SCH (11:07)
[2022-02-14] MEDS: diphenhydrAMINE 25 MG CAP PO SCH (11:07)
[2022-02-14] MEDS: CYANOCOBALAMIN 500 MCG TAB PO SCH (11:07)
[2022-02-14] MEDS: ASPIRIN 81 MG PO SCH ×2 (11:07→20:50)
[2022-02-14] MEDS: allopurinoL 300 MG TAB PO SCH (11:07)
[2022-02-14] MEDS: LACTATED RINGERS 1,000 ML IV SCH (11:07)
[2022-02-14] MEDS: hydroCHLOROthiazide 25 MG TAB PO SCH (11:08)
[2022-02-14] MEDS: lisinopriL 20 MG TAB PO SCH (11:08)
--- NOTE | 2022-02-14 12:32 | P.PN ---
Subjective Progress Note Date: 02/14/22 This patient is a 76-year-old female who is status-post operative fixation of left subtrochanteric femur fracture with long intramedullary hip screw on 02/13/22. Today is post-operative day #1. Patient is seen and examined bedside this morning. She states she was up to the bedside yesterday, but she has not been up walking with physical therapy yet. She states the pain in her left hip is well-controlled at this time. She has no complaints or concerns this morning. She denies chest pain, shortness of breath, nausea, vomiting, fevers, chills. Vital signs stable. Objective - Vital Signs Vital signs: Vital Signs Temp 98.6 F 02/14/22 02:27 Pulse 104 H 02/14/22 02:27 Resp 16 02/14/22 02:27 BP 106/69 02/14/22 02:27 Pulse Ox 96 02/14/22 02:27 Intake & Output 02/13/22 02/14/22 02/14/22 18:59 06:59 18:59 Intake Total 280 Output Total 200 Balance 80 Weight 89.358 kg Intake: IV 100 Oral 180 Output: Estimated Blood Loss 200 Other: Voiding Method External Catheter External Catheter # Bowel Movements 0 - Exam On examination, patient is sitting up in bed in no apparent distress. She is alert orientated 3. On inspection of the left hip and thigh, there are clean, dry, intact operative dressings in place. No bleeding or drainage the dressings. There is mild swelling of the thigh, the thigh is soft and compressible. Motor and sensory function is intact of the left lower extremity. Dorsalis pedis pulses easily palpable, the left lower extremity is warm and well-perfused with brisk capillary refill distally. Lower extremity compression cuffs in place bilaterally. Left calf is soft and nontender to palpation. - Labs CBC & Chem 7: 02/13/22 14:46 02/13/22 06:11 Labs: Abnormal Lab Results - Last 24 Hours (Table) 02/13/22 Range/Units 14:46 WBC 16.1 H (3.8-10.6) k/uL RBC 2.95 L (3.80-5.40) m/uL Hgb 9.5 L (11.4-16.0) gm/dL Hct 30.5 L (34.0-46.0) % MCV 103.4 H (80.0-100.0) fL RDW 16.0 H (11.5-15.5) % Neutrophils # 13.8 H (1.3-7.7) k/uL Monocytes # 1.1 H (0-1.0) k/uL Assessment and Plan Assessment: Status-post operative fixation of left subtrochanteric femur fracture with long intramedullary hip screw on 02/13/22. Post-operative day #1. Plan: - Weight-bear as tolerated on the operative leg with a walker. - Physical therapy for gait and balance training. - Keep operative dressings intact. - Aspirin 81 mg twice a day for DVT prophylaxis. - Pain management as needed. - 2 doses of postoperative IV antibiotics complete. - Internal medicine for astrid-operative medical management. - Case management consulted for discharge planning.
[2022-02-14] MEDS: HYDROcodone/APAP 5-325MG 1 EACH TAB PO PRN (13:44)
[2022-02-14] MEDS: METOCLOPRAMIDE 5 MG/ML 2 ML VIAL IVP PRN (13:48)
--- NOTE | 2022-02-14 16:23 | P.PN ---
Subjective Progress Note Date: 02/14/22 02/14/2022 status-post operative fixation of left subtrochanteric femur fracture with long intramedullary hip screw, postop day #1. Pain controlled. PT pending. Tolerating diet with no nausea vomiting or diarrhea. Passing flatus. Denies chest pain, palpitations or shortness of breath. Afebrile, T-max 101.1, mild tachycardia. Denies chest pain, palpitations or increased shortness of breath. Objective - Vital Signs Vital signs: Vital Signs Temp 98.8 F 02/14/22 14:00 Pulse 110 H 02/14/22 14:00 Resp 18 02/14/22 14:00 BP 108/68 02/14/22 14:00 Pulse Ox 90 L 02/14/22 14:00 Intake & Output 02/13/22 02/14/22 02/14/22 18:59 06:59 18:59 Intake Total 280 Output Total 200 Balance 80 Weight 89.358 kg Intake: IV 100 Oral 180 Output: Estimated Blood Loss 200 Other: Voiding Method External Catheter External Catheter # Bowel Movements 0 - Exam PHYSICAL EXAMINATION: Patient is lying in the bed comfortably, no acute distress, awake alert and oriented.. HEENT: Normocephalic. Neck is supple. Pupils reactive. MMM Neck: Supple, no JVD. CHEST EXAMINATION: Trachea is central. Symmetrical expansion. Lung karimi clear to auscultation and percussion. CARDIAC: Normal S1, S2 with no gallops. No murmurs ABDOMEN: Soft. Bowel sounds normal. No organomegaly. No abdominal bruits. Extremities: Left lower extremity dressings clean dry and intact, minimal edema ,No clubbing or cyanosis, positive DP pulse Neurologically awake, alert, oriented x3 with well-coordinated movements. No focal deficits noted. Strength and sensation grossly intact. Skin: Warm and dry, No rash - Labs CBC & Chem 7: 02/13/22 14:46 02/13/22 06:11 Assessment and Plan Assessment: Left proximal femur intertrochanteric fracture. s/p Fixation on 02/13/22 Status post fall likely mechanical. Postoperative hypoxia, suspect atelectasis Leukocytosis likely reactive. Macrocytosis Acute renal failure present on admission, resolved Hypertension Hyperlipidemia Diabetes type 2 [id number] Osteoarthritis GERD Plan: Continue on current medication regime ,monitoring and symptomatic treatment. Aggressive pulmonary toileting with incentive spirometer reinforced. Pain management. PT. Discharge planning in progress for [facility] subacute rehab. Chest x-ray ordered, related to mild hypoxemia, IV fluids discontinued, suspect atelectasis. Borderline hypotension, patient's home med regimen of antihypertensives placed on hold currently. Repeat labs ordered for a.m. The impression and plan of care has been dictated as directed. : I performed a history and examination of this patient, discussed the same with the dictator. I agree with the dictator's note ,documented as a scribe. Any additional findings or plans will be noted.
--- NOTE | 2022-02-14 16:37 | XR ---
EXAMINATION TYPE: XR chest 1V portable DATE OF EXAM: 02/14/2022 COMPARISON: 02/11/2022 HISTORY: Hypoxemia TECHNIQUE: FINDINGS: There is no heart failure nor confluent pneumonic infiltrate. Costophrenic angles are clear thoracic aorta is atheromatous. Bony thorax appears intact. IMPRESSION: No active cardiopulmonary disease. No change.
[2022-02-14] MEDS: BACLOFEN 10 MG TAB PO SCH (20:50)
[2022-02-14] MEDS: SENNOSIDES-DOCUSATE SODIUM 1 EACH TAB PO SCH (20:50)
[2022-02-14] MEDS: ATORVASTATIN 40 MG TAB PO SCH (20:50)
[2022-02-15 09:29] LABS: African American GFR (CKD) 83.6 (60.0-200.0); Anion Gap 8.5 mmol/L (10.00-18.00); BUN/Creat Ratio 35.13 Ratio (12.00-20.00); Blood Urea Nitrogen 28.1 mg/dL (9.0-27.0); Calcium 8.9 mg/dL (8.7-10.3); Carbon Dioxide 29.5 mmol/L (20.0-27.5); Non-African American GFR(CKD) 72.1 (60.0-200.0)
[2022-02-15 09:54] LABS: Basophils # (A) 0.02 X 10*3/uL (0.00-0.10); Basophils % (A) 0.1 %; Eosinophils # (A) 0.05 X 10*3/uL (0.04-0.35); Eosinophils % (A) 0.4 %; HCT 22.5 % (37.2-46.3); HGB 6.8 g/dL (12.0-15.0); Immature Grans, Automated 0.7 %; Lymphocytes # (A) 1.78 X 10*3/uL (0.90-5.00); Lymphocytes % (A) 13.2 %; MCH 31.2 pg (27.0-32.0); MCHC 30.2 g/dL (32.0-37.0); MCV 103.2 fL (80.0-97.0); Mean Platelet Volume 12.3 fL (9.5-12.2); Monocytes # (A) 1.53 X 10*3/uL (0.20-1.00); Monocytes % (A) 11.3 %; NRBC Per 100 WBC 0 /100 WBCS (0.0-0.0); Neutrophils # (A) 10.06 X 10*3/uL (1.80-7.70); Neutrophils % (A) 74.3 %; Platelet Count 171 X 10*3/uL (140-440); RBC 2.18 X 10*6/uL (4.10-5.20); RDW 15.4 % (11.5-14.5); WBC 13.53 X 10*3/uL (4.50-10.00)
--- NOTE | 2022-02-15 10:10 | CDI ---
Documentation Clarification Form Date: 02/15/2022 09:58:33 AM From: Andree Rodriges CCS, CCDS Admit Date: 02/11/2022 10:27:00 PM Patient Name: Libby Westbrook Visit Number: [id number] Discharge Date: ATTENTION: The Clinical Documentation Specialists (CDI) and [facility] Coding Staff appreciate your assistance in clarifying documentation. Please respond to the clarification below the line at the bottom and electronically sign. The CDI & [facility] Coding staff will review the response and follow-up if needed. Please note: Queries are made part of the Legal Health Record. If you have any questions, please contact the author of this message via ITS. Dr. Tab Ang: Postoperative Hypoxia, suspect Atelectasis is documented in the 02/14 Medical Management Progress note on 02/14. Additional clarification is requested regarding the relationship, if any, that exists between the diagnoses of Hypoxia & Atelectasis and the procedure. Patients Admitting Diagnosis per the 02/13 Orthopedic Procedure Note: Left Peritrochanteric/subtrochanteric proximal Femur Fracture Post-Operative Diagnosis: Same Procedure performed 02/13: Operative Fixation of Left Subtrochanteric Femur Fracture with Long Intramedullary Hip Screw History/Risk Factors per the 02/12 Orthopedic H/P: GERD, Hyperlipidemia, Hypertension, OA, Kidney Stones, IBS, Gout, Herniated Disc w/Back Pain, Non- smoker. Clinical Indicators: Presented to the ED on 02/11 via EMS after a fall at home with right leg pain. Admit with Fall, Left Hip Fracture 02/11 VS: T 98, P 102, R 16, BP 158/69, PO 98 RA 02/13 VS: T 97.0, P 108, R 16, BP 108/77, 143/69; PO 95 2Lnc, 93 2Lnc 02/11 LAB: WBC 11.7, Hgb 11.5, Hct 37.1, Neutrophils 8.6; APTT 21.8; BUN 42, Cr 1.09, Glucose 129, total protein 6.1 02/13 LAB: WBC 16.1, Hgb 9.5 (02/15 6.8); Hct 20.5, Neutrophils 13.8 02/11 CXR: No acute cardiopulmonary disease/process. 02/14 CXR: No active cardiopulmonary disease. No change. Treatment 02/13: O2 2Lnc, IV Na Cl w/Cefazolin Na 2,000 mg ( ) mls @ as directed x1, IV Dilaudid 0.2 mg - 0.5 mg prn, IV Cefazolin 50 mls @ 100 mls/hr q8H 02/14: Incentive Spirometry What relationship, if any, exists between the diagnosis of Hypoxia & Atelectasis and the procedure: [ ] Hypoxia and/or Atelectasis is a complication of surgical procedure [ ] Hypoxia and/or Atelectasis is an expected outcome of the surgical procedure [ ] Hypoxia and/or Atelectasis is related to patients co-morbid condition(s) of, please specify: & not a complication of the procedure [ ] Hypoxia and/or Atelectasis has been ruled out [ ] Other please specify: [ ] Unable to determine (Template Last Revised: December 2020) 02/16: Query response documented in the 02/15 Medical Management Progress Note: Postoperative atelectasis, expected outcome (CS: MIRIAM) MABEL
[2022-02-15] MEDS: ASPIRIN 81 MG PO SCH ×2 (10:12→20:37)
[2022-02-15] MEDS: diphenhydrAMINE 25 MG CAP PO SCH (10:24)
[2022-02-15] MEDS: CYANOCOBALAMIN 500 MCG TAB PO SCH (10:24)
[2022-02-15] MEDS: allopurinoL 300 MG TAB PO SCH (10:24)
[2022-02-15] MEDS: CHOLECALCIFEROL 25 MCG (1000 IU) TABLET PO SCH (10:24)
--- NOTE | 2022-02-15 10:46 | P.PN ---
Subjective Progress Note Date: 02/15/22 This patient is a 76-year-old female who is status-post operative fixation of left subtrochanteric femur fracture with long intramedullary hip screw on 02/13/22. Today is post-operative day #2. Patient is seen and examined bedside this morning. She states she was up with physical therapy yesterday for a few hours to the bedside chair. Patient states the pain in her left hip is well- controlled. Hemoglobin resulted at 6.8 this morning, 1 unit of PRBCs has been ordered per internal medicine. Patient has no complaints or concerns. Objective - Vital Signs Vital signs: Vital Signs Temp 99.1 F 02/15/22 08:00 Pulse 90 02/15/22 08:00 Resp 16 02/15/22 08:00 BP 111/67 02/15/22 08:00 Pulse Ox 98 02/15/22 08:00 Intake & Output 02/14/22 02/15/22 02/15/22 18:59 06:59 18:59 Intake Total 1080 Output Total 350 1000 Balance 730 -1000 Intake: Oral 1080 Output: Urine 350 1000 Other: Voiding Method External Catheter # Bowel Movements 0 - Exam On examination, patient is sitting up in bed in no apparent distress. She is alert orientated 3. On inspection of the left hip and thigh, there are clean, dry, intact operative dressings in place. No bleeding or drainage through the dressings. There is mild swelling of the thigh, the thigh is soft and compressible. Motor and sensory function is intact of the left lower extremity. Dorsalis pedis pulses easily palpable, the left lower extremity is warm and well-perfused with brisk capillary refill distally. Lower extremity compression cuffs in place bilaterally. Left calf is soft and nontender to palpation. - Labs CBC & Chem 7: 02/15/22 05:48 02/15/22 05:48 Labs: Abnormal Lab Results - Last 24 Hours (Table) 02/15/22 02/15/22 Range/Units 05:48 05:48 WBC 13.53 H (4.50-10.00) X 10*3/uL RBC 2.18 L (4.10-5.20) X 10*6/uL Hgb 6.8 L* (12.0-15.0) g/dL Hct 22.5 L (37.2-46.3) % MCV 103.2 H (80.0-97.0) fL MCHC 30.2 L (32.0-37.0) g/dL RDW 15.4 H (11.5-14.5) % MPV 12.3 H (9.5-12.2) fL Immature Gran # 0.09 H (0.00-0.04) X 10*3/uL Neutrophils # 10.06 H (1.80-7.70) X 10*3/uL Monocytes # 1.53 H (0.20-1.00) X 10*3/uL Carbon Dioxide 29.5 H (20.0-27.5) mmol/L Anion Gap 8.50 L (10.00-18.00) mmol/L BUN 28.1 H (9.0-27.0) mg/dL BUN/Creatinine Ratio 35.13 H (12.00-20.00) Ratio Glucose 126 H (70-110) mg/dL Assessment and Plan Assessment: Status-post operative fixation of left subtrochanteric femur fracture with long intramedullary hip screw on 02/13/22. Post-operative day #2. Plan: - Weight-bear as tolerated on the operative leg with a walker. - Physical therapy for gait and balance training. - Keep operative dressings intact. - Aspirin 81 mg twice a day for DVT prophylaxis. - Pain management as needed. - Internal medicine for astrid-operative medical management. Hemoglobin 6.8 this morning, 1 unit of PRBCs ordered per IM. - Anticipate discharge to [facility] when medically cleared.
[2022-02-15] MEDS: HYDROcodone/APAP 5-325MG 1 EACH TAB PO PRN (13:21)
[2022-02-15] MEDS: ONDANSETRON 4 MG/2 ML VIAL IVP PRN (13:28)
[2022-02-15] MEDS ORDERED: FUROSEMIDE 10 MG/ML 2 ML VIAL IV ONE (15:02)
--- NOTE | 2022-02-15 15:09 | P.PN ---
Subjective Progress Note Date: 02/15/22 02/14/2022 status-post operative fixation of left subtrochanteric femur fracture with long intramedullary hip screw, postop day #1. Pain controlled. PT pending. Tolerating diet with no nausea vomiting or diarrhea. Passing flatus. Denies chest pain, palpitations or shortness of breath. Afebrile, T-max 101.1, mild tachycardia. Denies chest pain, palpitations or increased shortness of breath. 02/15/2022 weaned off of oxygen, maintaining O2 sats in the low 90s on room air. Tachycardia improving, low 100s. UA of 02/13 negative. Chest x-ray reporting no active cardiopulmonary disease, no change. T-max 100, WBC decreased to 13.53. Hemoglobin decreased to 6.8, platelets decreased to 171; on e unit of packed RBCs ordered. Denies pain, shortness of breath,chest pain or palpitations. Denies chills or sweats. Passing flatus, no bowel movement. Antihypertensives on hold, blood pressure stable. BUN 28, creatinine 0.8. Objective - Vital Signs Vital signs: Vital Signs Temp 99.8 F H 02/15/22 14:01 Pulse 74 02/15/22 14:01 Resp 16 02/15/22 14:01 BP 129/73 02/15/22 14:01 Pulse Ox 91 L 02/15/22 13:51 Intake & Output 02/14/22 02/15/22 02/15/22 18:59 06:59 18:59 Intake Total 1080 310 Output Total 350 1000 Balance 730 -1000 310 Intake: Oral 1080 Blood Product 310 Rc As-1 Unit 0 [id number] Output: Urine 350 1000 Other: Voiding Method External Catheter # Bowel Movements 0 - Exam PHYSICAL EXAMINATION: Patient is alert and oriented 3, sitting up in the bed comfortably, no acute distress, awake alert and oriented.. HEENT: Normocephalic. Neck is supple. Pupils reactive. MMM Neck: Supple, no JVD. CHEST EXAMINATION: Trachea is central. Symmetrical expansion. Lung karimi clear to auscultation and percussion. CARDIAC: Normal S1, S2 with no gallops. No murmurs ABDOMEN: Soft. Bowel sounds normal. No organomegaly. No abdominal bruits. Extremities: Left lower extremity dressings clean dry and intact, minimal edema ,No clubbing or cyanosis, positive DP pulse Neurologically awake, alert, No focal deficits noted. Strength and sensation grossly intact. Skin: Warm and dry, No rash. - Labs CBC & Chem 7: 02/15/22 05:48 02/15/22 05:48 Labs: Abnormal Lab Results - Last 24 Hours (Table) 02/15/22 02/15/22 02/15/22 Range/Units 05:48 05:48 11:02 WBC 13.53 H (4.50-10.00) X 10*3/uL RBC 2.18 L (4.10-5.20) X 10*6/uL Hgb 6.8 L* (12.0-15.0) g/dL Hct 22.5 L (37.2-46.3) % MCV 103.2 H (80.0-97.0) fL MCHC 30.2 L (32.0-37.0) g/dL RDW 15.4 H (11.5-14.5) % MPV 12.3 H (9.5-12.2) fL Immature Gran # 0.09 H (0.00-0.04) X 10*3/uL Neutrophils # 10.06 H (1.80-7.70) X 10*3/uL Monocytes # 1.53 H (0.20-1.00) X 10*3/uL Carbon Dioxide 29.5 H (20.0-27.5) mmol/L Anion Gap 8.50 L (10.00-18.00) mmol/L BUN 28.1 H (9.0-27.0) mg/dL BUN/Creatinine Ratio 35.13 H (12.00-20.00) Ratio Glucose 126 H (70-110) mg/dL Crossmatch See Detail Assessment and Plan Assessment: Left proximal femur intertrochanteric fracture. s/p Fixation on 02/13/22 Status post fall likely mechanical. Acute blood loss anemia, postop, expected, new packed RBCs ordered Postoperative atelectasis, expected outcome Leukocytosis likely reactive. Macrocytosis Acute renal failure present on admission, resolved Hypertension Hyperlipidemia Diabetes type 2 [id number] Osteoarthritis GERD Plan: Continue on current medication regime ,monitoring and symptomatic treatment. One unit of packed RBCs ordered with Lasix 20 IV push after. Close monitoring of hemoglobin with repeat labs ordered for a.m. Aggressive pulmonary toileting with incentive spirometer reinforced. PT. Discharge planning in progress for [facility] subacute rehab. Close monitoring of blood pressure, patient's home med regimen of antihypertensives remain on hold. The impression and plan of care has been dictated as directed. : I performed a history and examination of this patient, discussed the same with the dictator. I agree with the dictator's note ,documented as a scribe. Any additional findings or plans will be noted.
[2022-02-15 16:25] LABS: Glucose,Whole Blood 158 mg/dL (75-99)
[2022-02-15] MEDS: INSULIN ASPART (NovoLOG) 100 UNIT/ML VIAL SQ SCH ×2 (17:27→20:37)
[2022-02-15] MEDS: SENNOSIDES-DOCUSATE SODIUM 1 EACH TAB PO SCH (20:37)
[2022-02-15] MEDS: BACLOFEN 10 MG TAB PO SCH (20:37)
[2022-02-15] MEDS: ATORVASTATIN 40 MG TAB PO SCH (20:37)
[2022-02-15] MEDS: ENOXAPARIN 40 MG/0.4 ML SYRINGE SQ SCH (21:01)
[2022-02-15] MEDS: ACETAMINOPHEN TAB 325 MG TAB PO PRN (21:01)
[2022-02-15 21:10] LABS: Glucose,Whole Blood 111 mg/dL (75-99)
--- NOTE | 2022-02-15 21:34 | US ---
EXAMINATION TYPE: US venous doppler duplex LE DATE OF EXAM: 02/15/2022 9:15 PM COMPARISON: NONE CLINICAL HISTORY: Possible DVT. Patient has left hip fx with soni placed. Patient has been bedridden d ue to surgery. SIDE PERFORMED: Bilateral TECHNIQUE: The lower extremity deep venous system is examined utilizing real time linear array sonog khari with graded compression, doppler sonography and color-flow sonography. VESSELS IMAGED: Common Femoral Vein Deep Femoral Vein Greater Saphenous Vein * Femoral Vein Popliteal Vein Small Saphenous Vein * Proximal Calf Veins (* superficial vessels) Right Leg: Negative for DVT Left Leg: Negative for DVT. Limited visualization left popliteal vein due to patient immobility. IMPRESSION: No evidence of deep vein thrombosis in both legs.
[2022-02-16 07:23] LABS: Glucose,Whole Blood 182 mg/dL (75-99)
[2022-02-16] MEDS: CYANOCOBALAMIN 500 MCG TAB PO SCH (07:35)
[2022-02-16] MEDS: CHOLECALCIFEROL 25 MCG (1000 IU) TABLET PO SCH (07:35)
[2022-02-16] MEDS: ENOXAPARIN 40 MG/0.4 ML SYRINGE SQ SCH (07:35)
[2022-02-16] MEDS: diphenhydrAMINE 25 MG CAP PO SCH (07:35)
[2022-02-16] MEDS: ASPIRIN 81 MG PO SCH ×2 (07:35→19:46)
[2022-02-16] MEDS: allopurinoL 300 MG TAB PO SCH (07:35)
[2022-02-16] MEDS: INSULIN ASPART (NovoLOG) 100 UNIT/ML VIAL SQ SCH ×3 (07:36→17:33)
[2022-02-16] MEDS: PIPERACILLIN-TAZOBACTAM 3.375 GM in SODIUM CHLORIDE 0.9% 100 ML IVPB SCH ×2 (09:29→16:09)
[2022-02-16 10:59] LABS: Basophils # (A) 0.02 X 10*3/uL (0.00-0.10); Basophils % (A) 0.2 %; Eosinophils # (A) 0.06 X 10*3/uL (0.04-0.35); Eosinophils % (A) 0.5 %; HCT 25.6 % (37.2-46.3); HGB 7.7 g/dL (12.0-15.0); Immature Grans, Automated 0.8 %; Lymphocytes # (A) 1.54 X 10*3/uL (0.90-5.00); MCH 30.4 pg (27.0-32.0); MCHC 30.1 g/dL (32.0-37.0); MCV 101.2 fL (80.0-97.0); Monocytes # (A) 1.27 X 10*3/uL (0.20-1.00); Monocytes % (A) 9.9 %; NRBC Per 100 WBC 0 /100 WBCS (0.0-0.0); Neutrophils # (A) 9.84 X 10*3/uL (1.80-7.70); Neutrophils % (A) 76.6 %; Platelet Count 186 X 10*3/uL (140-440); RBC 2.53 X 10*6/uL (4.10-5.20); RDW 15.8 % (11.5-14.5); WBC 12.83 X 10*3/uL (4.50-10.00)
[2022-02-16 11:01] LABS: African American GFR (CKD) 82.7 (60.0-200.0); Anion Gap 9.4 mmol/L (10.00-18.00); BUN/Creat Ratio 36.43 Ratio (12.00-20.00); Blood Urea Nitrogen 29.4 mg/dL (9.0-27.0); Calcium 8.9 mg/dL (8.7-10.3); Carbon Dioxide 31.4 mmol/L (20.0-27.5); Non-African American GFR(CKD) 71.4 (60.0-200.0); Potassium 3.8 mmol/L (3.5-5.5)
[2022-02-16] MEDS: polyethylene glycoL 3350 17 GM POWD.PACK PO SCH (11:11)
--- NOTE | 2022-02-16 11:20 | P.PN ---
Subjective Progress Note Date: 02/16/22 This patient is a 76-year-old female who is status-post operative fixation of left subtrochanteric femur fracture with long intramedullary hip screw on 02/13/22. Today is post-operative day #3. Patient is seen and examined bedside this morning. She states she is feeling very well this morning and has no complaints. Pain is well-controlled. She is status-post 1 unit of PRBCs yesterday and hemoglobin is 7.7 this morning. Patient was febrile last evening per nursing, Doppler US of bilateral LE negative for DVT. Vital signs stable, currently patient is afebrile. Objective - Vital Signs Vital signs: Vital Signs Temp 98.7 F 02/16/22 08:00 Pulse 85 02/16/22 08:00 Resp 16 02/16/22 08:00 BP 135/77 02/16/22 08:00 Pulse Ox 94 L 02/16/22 08:00 Intake & Output 02/15/22 02/16/22 02/16/22 18:59 06:59 18:59 Intake Total 620 Output Total 800 1150 Balance -180 -1150 Intake: Blood Product 620 Rc As-1 Unit 310 [id number] Output: Urine 800 1150 Other: Voiding Method External Catheter # Voids 3 # Bowel Movements 0 - Exam On examination, patient is sitting up in bed in no apparent distress. She is alert orientated 3. On inspection of the left hip and thigh, there are clean, dry, intact operative dressings in place. No bleeding or drainage through the dressings. There is mild swelling of the thigh, the thigh is soft and compressible. Motor and sensory function is intact of the left lower extremity. Dorsalis pedis pulses easily palpable, the left lower extremity is warm and well-perfused with brisk capillary refill distally. Lower extremity compression cuffs in place bilaterally. Left calf is soft and nontender to palpation. - Labs CBC & Chem 7: 02/16/22 05:24 02/16/22 05:24 Labs: Abnormal Lab Results - Last 24 Hours (Table) 02/15/22 02/15/22 02/15/22 Range/Units 11:02 16:21 21:09 WBC (4.50-10.00) X 10*3/uL RBC (4.10-5.20) X 10*6/uL Hgb (12.0-15.0) g/dL Hct (37.2-46.3) % MCV (80.0-97.0) fL MCHC (32.0-37.0) g/dL RDW (11.5-14.5) % Immature Gran # (0.00-0.04) X 10*3/uL Neutrophils # (1.80-7.70) X 10*3/uL Monocytes # (0.20-1.00) X 10*3/uL Carbon Dioxide (20.0-27.5) mmol/L Anion Gap (10.00-18.00) mmol/L BUN (9.0-27.0) mg/dL BUN/Creatinine Ratio (12.00-20.00) Ratio Glucose (70-110) mg/dL POC Glucose (mg/dL) 158 H 111 H (75-99) mg/dL Procalcitonin (0.02-0.09) ng/mL Crossmatch See Detail 02/15/22 02/16/22 02/16/22 Range/Units 21:34 05:24 05:24 WBC 12.83 H (4.50-10.00) X 10*3/uL RBC 2.53 L (4.10-5.20) X 10*6/uL Hgb 7.7 L (12.0-15.0) g/dL Hct 25.6 L (37.2-46.3) % MCV 101.2 H (80.0-97.0) fL MCHC 30.1 L (32.0-37.0) g/dL RDW 15.8 H (11.5-14.5) % Immature Gran # 0.10 H (0.00-0.04) X 10*3/uL Neutrophils # 9.84 H (1.80-7.70) X 10*3/uL Monocytes # 1.27 H (0.20-1.00) X 10*3/uL Carbon Dioxide 31.4 H (20.0-27.5) mmol/L Anion Gap 9.40 L (10.00-18.00) mmol/L BUN 29.4 H (9.0-27.0) mg/dL BUN/Creatinine Ratio 36.43 H (12.00-20.00) Ratio Glucose 123 H (70-110) mg/dL POC Glucose (mg/dL) (75-99) mg/dL Procalcitonin 0.13 H (0.02-0.09) ng/mL Crossmatch 02/16/22 Range/Units 07:22 WBC (4.50-10.00) X 10*3/uL RBC (4.10-5.20) X 10*6/uL Hgb (12.0-15.0) g/dL Hct (37.2-46.3) % MCV (80.0-97.0) fL MCHC (32.0-37.0) g/dL RDW (11.5-14.5) % Immature Gran # (0.00-0.04) X 10*3/uL Neutrophils # (1.80-7.70) X 10*3/uL Monocytes # (0.20-1.00) X 10*3/uL Carbon Dioxide (20.0-27.5) mmol/L Anion Gap (10.00-18.00) mmol/L BUN (9.0-27.0) mg/dL BUN/Creatinine Ratio (12.00-20.00) Ratio Glucose (70-110) mg/dL POC Glucose (mg/dL) 182 H (75-99) mg/dL Procalcitonin (0.02-0.09) ng/mL Crossmatch Assessment and Plan Assessment: Status-post operative fixation of left subtrochanteric femur fracture with long intramedullary hip screw on 02/13/22. Post-operative day #3. Plan: - Weight-bear as tolerated on the operative leg with a walker. - Physical therapy for gait and balance training. - Keep operative dressings intact. - Aspirin 81 mg twice a day for DVT prophylaxis. - Pain management as needed. - Internal medicine for astrid-operative medical management. - Anticipate discharge to [facility] when medically cleared.
[2022-02-16 11:55] LABS: Glucose,Whole Blood 165 mg/dL (75-99)
--- NOTE | 2022-02-16 13:36 | P.PN ---
Subjective Progress Note Date: 02/16/22 02/14/2022 status-post operative fixation of left subtrochanteric femur fracture with long intramedullary hip screw, postop day #1. Pain controlled. PT pending. Tolerating diet with no nausea vomiting or diarrhea. Passing flatus. Denies chest pain, palpitations or shortness of breath. Afebrile, T-max 101.1, mild tachycardia. Denies chest pain, palpitations or increased shortness of breath. 02/15/2022 weaned off of oxygen, maintaining O2 sats in the low 90s on room air. Tachycardia improving, low 100s. UA of 02/13 negative. Chest x-ray reporting no active cardiopulmonary disease, no change. T-max 100, WBC decreased to 13.53. Hemoglobin decreased to 6.8, platelets decreased to 171; on e unit of packed RBCs ordered. Denies pain, shortness of breath,chest pain or palpitations. Denies chills or sweats. Passing flatus, no bowel movement. Antihypertensives on hold, blood pressure stable. BUN 28, creatinine 0.8. 02/16/2022 T-max of 101.3 during the night, blood cultures obtained, pro- calcitonin increased-0.13, venous Doppler negative, Zosyn initiated. Recent prior x-ray reported clear, denies cough, congestion or shortness of breath. Reports positive constipation and diffuse lower abdominal tenderness. Denies abdominal pain. Denies nausea or vomiting. Feels better this morning. Decreased surgical pain with movement. Received one unit of packed RBCs yesterday with Hemoglobin increased to 7.7, platelets 186. BUN 29.4, creatinine 0.8. Denies chest pain, palpitations. Denies lightheadedness, dizziness or focal deficits. Objective - Vital Signs Vital signs: Vital Signs Temp 98.7 F 02/16/22 08:00 Pulse 85 02/16/22 08:00 Resp 16 02/16/22 08:00 BP 135/77 02/16/22 08:00 Pulse Ox 94 L 02/16/22 08:00 Intake & Output 02/15/22 02/16/22 02/16/22 18:59 06:59 18:59 Intake Total 620 Output Total 800 1150 Balance -180 -1150 Intake: Blood Product 620 Rc As-1 Unit 310 [id number] Output: Urine 800 1150 Other: Voiding Method External Catheter # Voids 3 # Bowel Movements 0 - Exam PHYSICAL EXAMINATION: Patient is alert and oriented 3, sitting up in the bed comfortably, no acute distress. HEENT: Normocephalic. Neck is supple. Pupils reactive. MMM Neck: Supple, no JVD. CHEST EXAMINATION: Trachea is central. Symmetrical expansion. Lung karimi clear to auscultation and percussion. CARDIAC: Normal S1, S2 with no gallops. No murmurs ABDOMEN: Soft. Bowel sounds normal. No organomegaly. Diffuse mild bilateral lower quadrant tenderness. Extremities: Left lower extremity dressings clean dry and intact, minimal edema ,No clubbing or cyanosis, positive DP pulse Neurologically awake, alert, No focal deficits noted. Strength and sensation grossly intact. Skin: Warm and dry, No rash. - Labs CBC & Chem 7: 02/16/22 05:24 02/16/22 05:24 Labs: Abnormal Lab Results - Last 24 Hours (Table) 02/15/22 02/15/22 02/15/22 Range/Units 11:02 16:21 21:09 WBC (4.50-10.00) X 10*3/uL RBC (4.10-5.20) X 10*6/uL Hgb (12.0-15.0) g/dL Hct (37.2-46.3) % MCV (80.0-97.0) fL MCHC (32.0-37.0) g/dL RDW (11.5-14.5) % Immature Gran # (0.00-0.04) X 10*3/uL Neutrophils # (1.80-7.70) X 10*3/uL Monocytes # (0.20-1.00) X 10*3/uL Carbon Dioxide (20.0-27.5) mmol/L Anion Gap (10.00-18.00) mmol/L BUN (9.0-27.0) mg/dL BUN/Creatinine Ratio (12.00-20.00) Ratio Glucose (70-110) mg/dL POC Glucose (mg/dL) 158 H 111 H (75-99) mg/dL Procalcitonin (0.02-0.09) ng/mL Crossmatch See Detail 02/15/22 02/16/22 02/16/22 Range/Units 21:34 05:24 05:24 WBC 12.83 H (4.50-10.00) X 10*3/uL RBC 2.53 L (4.10-5.20) X 10*6/uL Hgb 7.7 L (12.0-15.0) g/dL Hct 25.6 L (37.2-46.3) % MCV 101.2 H (80.0-97.0) fL MCHC 30.1 L (32.0-37.0) g/dL RDW 15.8 H (11.5-14.5) % Immature Gran # 0.10 H (0.00-0.04) X 10*3/uL Neutrophils # 9.84 H (1.80-7.70) X 10*3/uL Monocytes # 1.27 H (0.20-1.00) X 10*3/uL Carbon Dioxide 31.4 H (20.0-27.5) mmol/L Anion Gap 9.40 L (10.00-18.00) mmol/L BUN 29.4 H (9.0-27.0) mg/dL BUN/Creatinine Ratio 36.43 H (12.00-20.00) Ratio Glucose 123 H (70-110) mg/dL POC Glucose (mg/dL) (75-99) mg/dL Procalcitonin 0.13 H (0.02-0.09) ng/mL Crossmatch 02/16/22 02/16/22 Range/Units 07:22 11:52 WBC (4.50-10.00) X 10*3/uL RBC (4.10-5.20) X 10*6/uL Hgb (12.0-15.0) g/dL Hct (37.2-46.3) % MCV (80.0-97.0) fL MCHC (32.0-37.0) g/dL RDW (11.5-14.5) % Immature Gran # (0.00-0.04) X 10*3/uL Neutrophils # (1.80-7.70) X 10*3/uL Monocytes # (0.20-1.00) X 10*3/uL Carbon Dioxide (20.0-27.5) mmol/L Anion Gap (10.00-18.00) mmol/L BUN (9.0-27.0) mg/dL BUN/Creatinine Ratio (12.00-20.00) Ratio Glucose (70-110) mg/dL POC Glucose (mg/dL) 182 H 165 H (75-99) mg/dL Procalcitonin (0.02-0.09) ng/mL Crossmatch Assessment and Plan Assessment: Left proximal femur intertrochanteric fracture. s/p Fixation on 02/13/22 Fevers, workup in progress, suspect colitis secondary to constipation, MiraLAX added to med regimen. Status post fall likely mechanical. Acute blood loss anemia, postop, expected, transfused 1 unit packed RBCs Postoperative atelectasis, expected outcome Leukocytosis likely reactive. Macrocytosis Acute renal failure present on admission, resolved Hypertension Hyperlipidemia Diabetes type 2 [id number] Osteoarthritis GERD Plan: Continue on current medication regime ,monitoring and symptomatic treatment. Maintain Zosyn .MiraLAX added to med regimen .blood cultures pending .Close monitoring of hemoglobin with repeat labs ordered for a.m. Aggressive pulmonary toileting with incentive spirometer reinforced. PT. Discharge planning in progress for [facility] subacute rehab. tomorrow. The impression and plan of care has been dictated as directed. : I performed a history and examination of this patient, discussed the same with the dictator. I agree with the dictator's note ,documented as a scribe. Any additional findings or plans will be noted.
[2022-02-16] MEDS: ACETAMINOPHEN TAB 325 MG TAB PO PRN (16:10)
[2022-02-16 17:17] LABS: Glucose,Whole Blood 149 mg/dL (75-99)
[2022-02-16] MEDS: ATORVASTATIN 40 MG TAB PO SCH (19:46)
[2022-02-16] MEDS: SENNOSIDES-DOCUSATE SODIUM 1 EACH TAB PO SCH (19:46)
[2022-02-16] MEDS: BACLOFEN 10 MG TAB PO SCH (19:46)
[2022-02-16 20:59] LABS: Glucose,Whole Blood 163 mg/dL (75-99)
[2022-02-17] MEDS: INSULIN ASPART (NovoLOG) 100 UNIT/ML VIAL SQ SCH ×3 (01:50→11:42)
[2022-02-17] MEDS: PIPERACILLIN-TAZOBACTAM 3.375 GM in SODIUM CHLORIDE 0.9% 100 ML IVPB SCH ×2 (02:00→08:19)
[2022-02-17] MEDS: ACETAMINOPHEN TAB 325 MG TAB PO PRN ×2 (03:21→14:34)
[2022-02-17 06:57] LABS: Glucose,Whole Blood 118 mg/dL (75-99)
[2022-02-17] MEDS: polyethylene glycoL 3350 17 GM POWD.PACK PO SCH (07:16)
[2022-02-17] MEDS: CYANOCOBALAMIN 500 MCG TAB PO SCH (07:16)
[2022-02-17] MEDS: CHOLECALCIFEROL 25 MCG (1000 IU) TABLET PO SCH (07:17)
[2022-02-17] MEDS: allopurinoL 300 MG TAB PO SCH (07:17)
[2022-02-17] MEDS: diphenhydrAMINE 25 MG CAP PO SCH (07:17)
[2022-02-17] MEDS: ASPIRIN 81 MG PO SCH (07:17)
[2022-02-17 07:53] VITALS: RESP 18
[2022-02-17 10:53] LABS: Basophils # (A) 0.01 X 10*3/uL (0.00-0.10); Basophils % (A) 0.1 %; Eosinophils # (A) 0.18 X 10*3/uL (0.04-0.35); Eosinophils % (A) 1.6 %; HCT 25.7 % (37.2-46.3); HGB 7.8 g/dL (12.0-15.0); Immature Grans, Automated 0.6 %; Lymphocytes # (A) 1.65 X 10*3/uL (0.90-5.00); Lymphocytes % (A) 15.1 %; MCHC 30.4 g/dL (32.0-37.0); Mean Platelet Volume 11.6 fL (9.5-12.2); Monocytes # (A) 1.05 X 10*3/uL (0.20-1.00); Monocytes % (A) 9.6 %; NRBC Per 100 WBC 0 /100 WBCS (0.0-0.0); Neutrophils # (A) 7.95 X 10*3/uL (1.80-7.70); Platelet Count 208 X 10*3/uL (140-440); RBC 2.52 X 10*6/uL (4.10-5.20); RDW 15.2 % (11.5-14.5); WBC 10.91 X 10*3/uL (4.50-10.00)
[2022-02-17 11:06] LABS: African American GFR (CKD) 83.6 (60.0-200.0); Anion Gap 9.3 mmol/L (10.00-18.00); BUN/Creat Ratio 30.75 Ratio (12.00-20.00); Blood Urea Nitrogen 24.6 mg/dL (9.0-27.0); Calcium 8.8 mg/dL (8.7-10.3); Carbon Dioxide 29.7 mmol/L (20.0-27.5); Non-African American GFR(CKD) 72.1 (60.0-200.0); Potassium 3.6 mmol/L (3.5-5.5)
--- NOTE | 2022-02-17 11:08 | P.DS ---
Providers Date of admission: 02/11/22 22:27 Expected date of discharge: 02/17/22 Attending physician: Tab Ang MD Consults: 02/11/22 22:11 Consult Physician Urgent Consulting Provider: Tab Ang Consult Reason/Comments: medical management, surgery clearance Do you want consulting provider notified?: Yes Primary care physician: Mariajose Ang Hospital Course: Left proximal femur intertrochanteric fracture. s/p Fixation on 02/13/22 Fevers, workup in progress, suspect colitis secondary to constipation, MiraLAX added to med regimen. Fevers resolved. Status post fall likely mechanical. Acute blood loss anemia, postop, expected, transfused 1 unit packed RBCs Postoperative atelectasis, expected outcome Leukocytosis likely reactive. Macrocytosis Acute renal failure present on admission, resolved Hypertension Hyperlipidemia Diabetes type 2 [id number] Osteoarthritis GERD Hospital course:02/14/2022 status-post operative fixation of left subtrochanteric femur fracture with long intramedullary hip screw, postop day #1. Pain controlled. PT pending. Tolerating diet with no nausea vomiting or diarrhea. Passing flatus. Denies chest pain, palpitations or shortness of breath. Afebrile, T-max 101.1, mild tachycardia. Denies chest pain, palpitations or increased shortness of breath. 02/15/2022 weaned off of oxygen, maintaining O2 sats in the low 90s on room air. Tachycardia improving, low 100s. UA of 02/13 negative. Chest x-ray reporting no active cardiopulmonary disease, no change. T-max 100, WBC decreased to 13.53. Hemoglobin decreased to 6.8, platelets decreased to 171; one unit of packed RBCs ordered. Denies pain, shortness of breath,chest pain or palpitations. Denies chills or sweats. Passing flatus, no bowel movement. Antihypertensives on hold, blood pressure stable. BUN 28, creatinine 0.8. 02/16/2022 T-max of 101.3 during the night, blood cultures obtained, pro- calcitonin increased-0.13, venous Doppler negative, Zosyn initiated. Recent prior x-ray reported clear, denies cough, congestion or shortness of breath. Reports positive constipation and diffuse lower abdominal tenderness. Denies abdominal pain. Denies nausea or vomiting. Feels better this morning. Decreased surgical pain with movement. Received one unit of packed RBCs yesterday with Hemoglobin increased to 7.7, platelets 186. BUN 29.4, creatinine 0.8. Denies chest pain, palpitations. Denies lightheadedness, dizziness or focal deficits. Significant clinical improvement. Afebrile. Placed on MiraLAX yesterday ,positive flatus and feels like she is going to have a bowel movement soon. Denies abdominal pain. Nice chest pain, palpitations or shortness of breath. Patient has been cleared by orthopedic surgery. Patient will be discharged today in a stable condition with guarded prognosis to [facility] subacute rehab. The impression and plan of care has been dictated as directed. : I performed a history and examination of this patient, discussed the same with the dictator. I agree with the dictator's note ,documented as a scribe. Any additional findings or plans will be noted. Patient Condition at Discharge: Stable Plan - Discharge Summary Discharge Rx Participant: Yes New Discharge Prescriptions: New Aspirin 81 mg PO BID 30 Days #60 tab Amoxicillin/Potassium Clav [Augmentin 875-125 Tablet] 1 tab PO BID 2 Days #4 tab INSULIN LISPRO (HumaLOG) [humaLOG] 0 unit SQ ACHS #10 ml Magnesium Hydroxide [Milk of Magnesia Concentrate] 2,400 mg PO DAILY PRN ml PRN Reason: Constipation Sennosides-Docusate Sodium [Senokot-S] 2 each PO HS tab polyethylene glycoL 3350 [Miralax] 17 gm PO DAILY packet Acetaminophen Tab [Tylenol] 650 mg PO Q4HR PRN tab PRN Reason: Fever and/ or Mild Pain Cyanocobalamin [Vitamin B-12] 1,000 mcg PO DAILY tab Continue Cholecalciferol [Vitamin D3 (25 Mcg = 1000 Iu)] 2,000 units PO DAILY Pantoprazole Sodium 40 mg PO DAILY PRN PRN Reason: GERD Atorvastatin [Lipitor] 40 mg PO HS allopurinoL [Zyloprim] 300 mg PO DAILY lisinopriL 40 mg PO DAILY Indapamide [Lozol] 2.5 mg PO DAILY Baclofen [Lioresal] 10 mg PO HS Naproxen 500 mg PO DAILY diphenhydrAMINE [Benadryl] 25 mg PO DAILY Pioglitazone [Actos] 15 mg PO DAILY@1200 Discharge Medication List Cholecalciferol [Vitamin D3 (25 Mcg = 1000 Iu)] 2,000 units PO DAILY 03/20/14 [History] Atorvastatin [Lipitor] 40 mg PO HS 05/12/15 [History] Pantoprazole Sodium 40 mg PO DAILY PRN 05/12/15 [History] allopurinoL [Zyloprim] 300 mg PO DAILY 10/10/16 [History] Indapamide [Lozol] 2.5 mg PO DAILY 01/04/18 [History] lisinopriL 40 mg PO DAILY 01/04/18 [History] Baclofen [Lioresal] 10 mg PO HS 02/11/22 [History] Naproxen 500 mg PO DAILY 02/11/22 [History] Pioglitazone [Actos] 15 mg PO DAILY@1200 02/11/22 [History] diphenhydrAMINE [Benadryl] 25 mg PO DAILY 02/11/22 [History] Aspirin 81 mg PO BID 30 Days #60 tab 02/16/22 [Rx] Acetaminophen Tab [Tylenol] 650 mg PO Q4HR PRN tab 02/17/22 [Rx] Amoxicillin/Potassium Clav [Augmentin 875-125 Tablet] 1 tab PO BID 2 Days #4 tab 02/17/22 [Rx] Cyanocobalamin [Vitamin B-12] 1,000 mcg PO DAILY tab 02/17/22 [Rx] INSULIN LISPRO (HumaLOG) [humaLOG] 0 unit SQ ACHS #10 ml 02/17/22 [Rx] Magnesium Hydroxide [Milk of Magnesia Concentrate] 2,400 mg PO DAILY PRN ml 02/17/22 [Rx] Sennosides-Docusate Sodium [Senokot-S] 2 each PO HS tab 02/17/22 [Rx] polyethylene glycoL 3350 [Miralax] 17 gm PO DAILY packet 02/17/22 [Rx] Follow up Appointment(s)/Referral(s): Mariajose Ang DO [Primary Care Provider] - 1 Week (After discharge from subacute rehab) Michoacano Guo MD [Medical Doctor] - 2 Weeks Patient Instructions/Handouts: Anemia (DC), Intramedullary Nailing (DC) Activity/Diet/Wound Care/Special Instructions: Weight bear as tolerated on operative extremity with a walker. Keep operative dressings intact. Take pain medications as needed. Aspirin 81m BID x 4 weeks for blood clot prevention. Follow-up in the office in [address] Guo. Call the office with any questions or concerns,
[2022-02-17 11:34] LABS: Glucose,Whole Blood 109 mg/dL (75-99)
[2022-02-17 14:17] VITALS: BP 127/77; PULSE 96; TEMP 98.4
[2022-02-17 14:47] VITALS: BMI 29.9
== END 2022-02-17 15:41 | DRG 481 ==
LOC: EC 20:08 → 4SSUR 22:27
PROVIDERS: ADMIT Orthopaedic Surgery; ATTEND Family Medicine
PROC: 0SSB04Z Reposition Left Hip Joint with Internal Fixation Device, Open Approach (ICD-10-PCS; principal; 2022-02-13 08:00)
PROC: 30233N1 Transfusion of Nonautologous Red Blood Cells into Peripheral Vein, Percutaneous Approach (ICD-10-PCS; 2022-02-15)
DX: S72.22XA Displaced subtrochanteric fracture of left femur, initial encounter for closed fracture (principal); D62 Acute posthemorrhagic anemia; J98.11 Atelectasis; N17.9 Acute kidney failure, unspecified; W19.XXXA Unspecified fall, initial encounter; D72.829 Elevated white blood cell count, unspecified; D75.89 Other specified diseases of blood and blood-forming organs; E11.9 Type 2 diabetes mellitus without complications; E78.5 Hyperlipidemia, unspecified; K58.1 Irritable bowel syndrome with constipation; G89.29 Other chronic pain; R00.0 Tachycardia, unspecified; I10 Essential (primary) hypertension; K21.9 Gastro-esophageal reflux disease without esophagitis; M10.9 Gout, unspecified; K59.00 Constipation, unspecified; M19.90 Unspecified osteoarthritis, unspecified site; R09.02 Hypoxemia; Z20.822 Contact with and (suspected) exposure to COVID-19; Z79.84 Long term (current) use of oral hypoglycemic drugs; Z79.899 Other long term (current) drug therapy; Z87.442 Personal history of urinary calculi; Z90.710 Acquired absence of both cervix and uterus; Z28.310 Unvaccinated for COVID-19; Z80.9 Family history of malignant neoplasm, unspecified; Z98.890 Other specified postprocedural states; Z90.49 Acquired absence of other specified parts of digestive tract
CPT/HCPCS: 36415; 71045; 73502; 80048; 80053; 81003; 82607; 82747; 84132; 84145; 85025; 85610; 85730; 86850; 86900; 86901; 86920; 87040; 87635; 93970; 96374; 96375; 99285

== ENCOUNTER → 2022-07-22 | Outpatient (CLI) | payer MEDICARE, OTHER ==
--- NOTE | 2022-07-25 09:33 | MM ---
Reason for Exam: Screening (asymptomatic). Last mammogram was performed 1 year(s) and 1 month(s) ago. Patient History: Menarche at age 15. First Full-Term at age 20. Hysterectomy at age 43. Postmenopausal. Estrogen for 2 years from age 49 until age 51. Progesterone for 2 years from age 49 until age 51. Benign Excisional Biopsy on the right side. Risk Values: Agustina 5 year model risk: 1.4%. NCI Lifetime model risk: 3.0%. Prior Study Comparison: 09/19/2018 Bilateral Screening Mammogram, [facility]. 11/28/2019 Bilateral Screening Mammogram, [facility]. 06/03/2021 Bilateral Screening Mammogram, [facility]. Tissue Density: There are scattered fibroglandular densities. Findings: Analyzed By CAD. Occasional scattered tiny benign-appearing round calcification in the left breast redemonstrated. There is no suspicious group of microcalcifications or new suspicious mass in either breast. Overall Assessment: Negative, BI-RAD 1 Management: Screening Mammogram of both breasts in 1 year. A clinical breast exam by your physician is recommended on an annual basis and results should be correlated with mammographic findings. Electronically signed and approved by: Hayden Sanders M.D.
== END | disposition home or self-care (01) ==
LOC: RADMAMWWP 14:52
PROVIDERS: ATTEND Family Medicine
DX: Z12.31 Encounter for screening mammogram for malignant neoplasm of breast (principal); Z78.0 Asymptomatic menopausal state
CPT/HCPCS: 77063; 77067

== ENCOUNTER 2023-10-09 11:40 | Observation (INO) | payer MEDICARE, OTHER ==
[2023-10-09 12:28] LABS: Basophils % (A) 0 %; Eosinophils # (A) 0.1 k/uL (0-0.7); Eosinophils % (A) 1 %; HCT 34.7 % (34.0-46.0); HGB 11.1 gm/dL (11.4-16.0); Lymphocytes # (A) 1.4 k/uL (1.0-4.8); Lymphocytes % (A) 13 %; MCHC 31.9 g/dL (31.0-37.0); MCV 100.4 fL (80.0-100.0); Mean Platelet Volume 7.9; Monocytes # (A) 0.6 k/uL (0-1.0); Monocytes % (A) 5 %; Neutrophils # (A) 8.7 k/uL (1.3-7.7); Neutrophils % (A) 80 %; Platelet Count 224 k/uL (150-450); RBC 3.46 m/uL (3.80-5.40); RDW 13.1 % (11.5-15.5)
[2023-10-09 12:33] LABS: INR 0.9 (<1.2); Prothrombin Time 10.2 sec (10.0-12.5)
[2023-10-09 12:48] LABS: ALT 17 U/L (4-34); AST 17 U/L (14-36); African American GFR (CKD) 80 (>60 ml/min/1.73 sqM); Albumin 3.6 g/dL (3.5-5.0); Alkaline Phosphatase 83 U/L (38-126); Anion Gap 8 mmol/L; Blood Urea Nitrogen 27 mg/dL (7-17); Calcium 9.6 mg/dL (8.4-10.2); Carbon Dioxide 28 mmol/L (22-30); Chloride 103 mmol/L (98-107); Glucose 108 mg/dL (74-99); Lipase 172 U/L (23-300); Magnesium 1.8 mg/dL (1.6-2.3); Non-African American GFR(CKD) 69 (>60 ml/min/1.73 sqM); Sodium 139 mmol/L (137-145); Total Bilirubin 0.6 mg/dL (0.2-1.3); Total Protein 6.1 g/dL (6.3-8.2)
--- NOTE | 2023-10-09 12:50 | XR ---
EXAMINATION TYPE: XR chest 2V DATE OF EXAM: 10/09/2023 COMPARISON: 02/14/2022 TECHNIQUE: PA and lateral views submitted. HISTORY: Chest pain FINDINGS: The lungs are clear and there is no pneumothorax, pleural effusion, or focal pneumonia. No overt feng lure. Osseous structures demonstrate hypertrophic and degenerative changes of the spine. A chronic-ap pearing wedge deformity at the thoracolumbar junction. Heart is enlarged. Hyperinflation. Ectasia of the aorta with atherosclerotic change. IMPRESSION: 1. No acute process. 2. Cardiomegaly with COPD.
--- NOTE | 2023-10-09 13:30 | US ---
EXAMINATION TYPE: US venous doppler duplex LE LT DATE OF EXAM: 10/09/2023 12:22 PM COMPARISON: US 02/15/2022 CLINICAL INDICATION: Female, 78 years old with history of swelling; Swelling. No hx of DVT. SIDE PERFORMED: Left TECHNIQUE: The lower extremity deep venous system is examined utilizing real time linear array sonog khari with graded compression, doppler sonography and color-flow sonography. VESSELS IMAGED: Common Femoral Vein Deep Femoral Vein Greater Saphenous Vein * Femoral Vein Popliteal Vein Small Saphenous Vein * Proximal Calf Veins (* superficial vessels) Left Leg: No evidence of DVT. Edema noted within left calf. IMPRESSION: 1. No diagnostic evidence of DVT.
--- NOTE | 2023-10-09 13:47 | ED ---
General Adult HPI - General Chief complaint: Chest Pain Stated complaint: Chest Pain Time Seen by Provider: 10/09/23 12:02 Source: patient, EMS, RN notes reviewed, old records reviewed Mode of arrival: EMS Limitations: no limitations - History of Present Illness Initial comments: 78-year-old female presenting with left-sided chest pain which began early this morning. Pain did radiate into the back. Associated with deep inspiration. Patient denies prior history of cardiac disease. No associated vomiting or diaphoresis. No abdominal pain. - Related Data Home Medications Medication Instructions Recorded Confirmed Cholecalciferol [Vitamin D3 (25 50 mcg PO DAILY 03/20/14 10/09/23 Mcg = 1000 Iu)] Indapamide [Lozol] 2.5 mg PO DAILY 01/04/18 10/09/23 lisinopriL 40 mg PO DAILY 01/04/18 10/09/23 Baclofen [Lioresal] 10 mg PO HS 02/11/22 10/09/23 Pioglitazone [Actos] 15 mg PO HS 02/11/22 10/09/23 Allergies Allergy/AdvReac Type Severity Reaction Status Date / Time gabapentin [From Neurontin] AdvReac Nausea & Verified 10/09/23 15:26 Vomiting PAIN MEDS AdvReac Nausea & Uncoded 10/09/23 15:26 Vomiting Review of Systems ROS Statement: Those systems with pertinent positive or pertinent negative responses have been documented in the HPI. ROS Other: All systems not noted in ROS Statement are negative. Past Medical History Past Medical History: GERD/Reflux, Hyperlipidemia, Hypertension, Osteoarthritis (OA) Additional Past Medical History / Comment(s): HX OF KIDNEY STONES, HERNIATED DISCS WITH BACK PAIN, IBS, GOUT. History of Any Multi-Drug Resistant Organisms: None Reported Past Surgical History: Appendectomy, Hysterectomy, Orthopedic Surgery Additional Past Surgical History / Comment(s): RIGHT KNEE SURGERY Past Anesthesia/Blood Transfusion Reactions: Postoperative Nausea & Vomiting (PONV) Past Psychological History: No Psychological Hx Reported Smoking Status: Never smoker Past Alcohol Use History: None Reported Past Drug Use History: None Reported - Past Family History Son(s) Family Medical History: Cancer General Exam Limitations: no limitations General appearance: alert, in no apparent distress Head exam: Present: atraumatic, normocephalic Eye exam: Present: normal appearance, PERRL ENT exam: Present: normal exam Neck exam: Present: normal inspection. Absent: tenderness, meningismus Respiratory exam: Present: normal lung sounds bilaterally. Absent: respiratory distress, wheezes Cardiovascular Exam: Present: regular rate, normal rhythm GI/Abdominal exam: Present: soft. Absent: distended, tenderness, guarding Extremities exam: Present: pedal edema Neurological exam: Present: alert, oriented X3 Psychiatric exam: Present: normal affect, normal mood Skin exam: Present: warm, dry, intact. Absent: cyanosis, diaphoretic Course Vital Signs 10/09/23 10/09/23 10/09/23 11:54 13:00 14:00 Temperature 97.7 F Pulse Rate 95 84 85 Respiratory 18 20 20 Rate Blood Pressure 145/82 141/97 141/79 O2 Sat by Pulse 97 96 96 Oximetry 10/09/23 10/09/23 15:00 16:00 Temperature Pulse Rate 90 92 Respiratory 20 20 Rate Blood Pressure 149/88 157/73 O2 Sat by Pulse 95 95 Oximetry Medical Decision Making - Medical Decision Making Was pt. sent in by a medical professional or institution (LOIS Zapata, TELEVISION SERVICE ENGINEER, urgent care, hospital, or retirement...) When possible be specific @ -No Did you speak to anyone other than the patient for history (EMS, parent, family, police, friend...)? What history was obtained from this source @ -[Patient's daughter Did you review nursing and triage notes (agree or disagree)? Why? @ -I reviewed and agree with nursing and triage notes Were old charts reviewed (outside hosp., previous admission, EMS record, old EKG, old radiological studies, urgent care reports/EKG's, retirement records)? Report findings @ -No old charts were reviewed Differential Diagnosis (chest pain, altered mental status, abdominal pain women, abdominal pain men, vaginal bleeding, weakness, fever, dyspnea, syncope, headache, dizziness, GI bleed, back pain, seizure, CVA, palpatations, mental health, musculoskeletal)? @ -Differential Chest Pain: Stable Angina, Unstable Angina, STEMI, NSTEMI Aortic Dissection, Pneumothorax, Musculoskeletal, Esophageal Spasm GERD, Cholecystitis, Pancreatitis, Zoster, this is not meant to be an all-inclusive list. EKG interpreted by me (3pts min.). @Sinus rhythm rate of 87, WV interval 161, QRS duration 84, QTC [address] segment elevation. X-rays interpreted by me (1pt min.). @ Chest x-ray negative for acute cardio pulmonary findings CT interpreted by me (1pt min.). @ -[ET chest negative for pulmonary embolism U/S interpreted by me (1pt. min.). @ -None done What testing was considered but not performed or refused? (CT, X-rays, U/S, labs)? Why? @ -None What meds were considered but not given or refused? Why? @ -None Did you discuss the management of the patient with other professionals (professionals i.e. , PA, TELEVISION SERVICE ENGINEER, lab, RT, psych nurse, nephrology social worker, human resources department supervisor, teacher, aoc airspace control officer, patient case coordinator)? Give summary @ -[Dr. Ang Was smoking cessation discussed for >3mins.? @ -No Was critical care preformed (if so, how long)? @ -No Were there social determinants of health that impacted care today? How? (Homelessness, low income, unemployed, alcoholism, drug addiction, transportation, low edu. Level, literacy, decrease access to med. care, fdc, rehab)? @ -No Was there de-escalation of care discussed even if they declined (Discuss DNR or withdrawal of care, Hospice)? DNR status @ -No What co-morbidities impacted this encounter? (DM, HTN, Smoking, COPD, CAD, Cancer, CVA, ARF, Chemo, Hep., AIDS, mental health diagnosis, sleep apnea, morbid obesity)? @ Hypertension, diabetes Was patient admitted / discharged? Hospital course, mention meds given and route, prescriptions, significant lab abnormalities, going to OR and other pertinent info. @ -78-year-old female presenting with left-sided chest pain. EKG sinus rhythm without ST segment elevation. She has a chest x-ray which is negative for acute cardio pulmonary findings. Normal CBC, she has a normal CMP, negative initial troponin. She has a positive d-dimer and CT angiography is ordered which is negative for pulmonary embolism. Patient will be placed in observation for serial cardiac enzymes, telemetry, echo, cardiology consultation. Undiagnosed new problem with uncertain prognosis? @ -No Drug Therapy requiring intensive monitoring for toxicity (Heparin, Nitro, In sulin, Cardizem)? @ -No Were any procedures done? @ -No Diagnosis/symptom? @ -[Chest pain Acute, or Chronic, or Acute on Chronic? @ -Acute Uncomplicated (without systemic symptoms) or Complicated (systemic symptoms)? @ -default Side effects of treatment? @ -No Exacerbation, Progression, or Severe Exacerbation? @ -No Poses a threat to life or bodily function? How? (Chest pain, [place], [place], pneumonia, PE, COPD, DKA, ARF, appy, cholecystitis, CVA, Diverticulitis, Homicidal, Suicidal, threat to staff... and all critical care pts) @ -[Yes, chest pain - Lab Data Result diagrams: 10/09/23 12:17 10/09/23 12:17 Lab Results 10/09/23 10/09/23 10/09/23 Range/Units 12:17 12:17 12:17 WBC 11.0 H (3.8-10.6) k/uL RBC 3.46 L (3.80-5.40) m/uL Hgb 11.1 L (11.4-16.0) gm/dL Hct 34.7 (34.0-46.0) % MCV 100.4 H (80.0-100.0) fL MCH 32.0 (25.0-35.0) pg MCHC 31.9 (31.0-37.0) g/dL RDW 13.1 (11.5-15.5) % Plt Count 224 (150-450) k/uL MPV 7.9 Neutrophils % 80 % Lymphocytes % 13 % Monocytes % 5 % Eosinophils % 1 % Basophils % 0 % Neutrophils # 8.7 H (1.3-7.7) k/uL Lymphocytes # 1.4 (1.0-4.8) k/uL Monocytes # 0.6 (0-1.0) k/uL Eosinophils # 0.1 (0-0.7) k/uL Basophils # 0.0 (0-0.2) k/uL PT 10.2 (10.0-12.5) sec INR 0.9 (<1.2) APTT 21.0 L (22.0-30.0) sec D-Dimer (<0.60) mg/L FEU Sodium 139 (137-145) mmol/L Potassium 4.0 (3.5-5.1) mmol/L Chloride 103 (98-107) mmol/L Carbon Dioxide 28 (22-30) mmol/L Anion Gap 8 mmol/L BUN 27 H (7-17) mg/dL Creatinine 0.82 (0.52-1.04) mg/dL Est GFR (CKD-EPI)AfAm 80 (>60 ml/min/1.73 sqM) Est GFR (CKD-EPI)NonAf 69 (>60 ml/min/1.73 sqM) Glucose 108 H (74-99) mg/dL Calcium 9.6 (8.4-10.2) mg/dL Magnesium 1.8 (1.6-2.3) mg/dL Total Bilirubin 0.6 (0.2-1.3) mg/dL AST 17 (14-36) U/L ALT 17 (4-34) U/L Alkaline Phosphatase 83 (38-126) U/L Troponin I (0.000-0.034) ng/mL Total Protein 6.1 L (6.3-8.2) g/dL Albumin 3.6 (3.5-5.0) g/dL Lipase 172 (23-300) U/L 10/09/23 10/09/23 Range/Units 12:17 12:17 WBC (3.8-10.6) k/uL RBC (3.80-5.40) m/uL Hgb (11.4-16.0) gm/dL Hct (34.0-46.0) % MCV (80.0-100.0) fL MCH (25.0-35.0) pg MCHC (31.0-37.0) g/dL RDW (11.5-15.5) % Plt Count (150-450) k/uL MPV Neutrophils % % Lymphocytes % % Monocytes % % Eosinophils % % Basophils % % Neutrophils # (1.3-7.7) k/uL Lymphocytes # (1.0-4.8) k/uL Monocytes # (0-1.0) k/uL Eosinophils # (0-0.7) k/uL Basophils # (0-0.2) k/uL PT (10.0-12.5) sec INR (<1.2) APTT (22.0-30.0) sec D-Dimer 1.11 H (<0.60) mg/L FEU Sodium (137-145) mmol/L Potassium (3.5-5.1) mmol/L Chloride (98-107) mmol/L Carbon Dioxide (22-30) mmol/L Anion Gap mmol/L BUN (7-17) mg/dL Creatinine (0.52-1.04) mg/dL Est GFR (CKD-EPI)AfAm (>60 ml/min/1.73 sqM) Est GFR (CKD-EPI)NonAf (>60 ml/min/1.73 sqM) Glucose (74-99) mg/dL Calcium (8.4-10.2) mg/dL Magnesium (1.6-2.3) mg/dL Total Bilirubin (0.2-1.3) mg/dL AST (14-36) U/L ALT (4-34) U/L Alkaline Phosphatase (38-126) U/L Troponin I <0.012 (0.000-0.034) ng/mL Total Protein (6.3-8.2) g/dL Albumin (3.5-5.0) g/dL Lipase (23-300) U/L Disposition Clinical Impression: Chest pain Disposition: ADMITTED IP TO THIS HOSP Condition: Stable Is patient prescribed a controlled substance at d/c from ED?: No Referrals: Karin Parikh DO [Primary Care Provider] - 1-2 days Time of Disposition: 16:28
[2023-10-09] MEDS ORDERED: MORPHINE SULFATE 2 MG/ML SYRINGE IVP STA (15:33)
[2023-10-09] MEDS ORDERED: ACETAMINOPHEN TAB 500 MG TAB PO STA (15:47)
--- NOTE | 2023-10-09 16:12 | CT ---
EXAMINATION TYPE: CT angio chest CT DLP: 399.9 mGycm, Automated exposure control for dose reduction was used. DATE OF EXAM: 10/09/2023 1:46 PM COMPARISON: Same day 2V chest x-ray. CT abdomen pelvis without contrast 07/10/2013. CLINICAL INDICATION:Female, 78 years old with history of CP/pos dimer; Chest pain with positive D-dim er TECHNIQUE/CONTRAST: CTA scan of the thorax is performed without and with IV Contrast, patient injected with 100 ml mL of Isovue 370, MIP images are created and reviewed these are created on a separate workstation.. FINDINGS: Pulmonary Artery: There is no evidence for a filling defect within the pulmonary vasculature to sugge st acute pulmonary embolism. The pulmonary artery is mildly prominent, pulmonary trunk is 3.3 cm. Heart: Heart is within normal limits for size. No pericardial effusion. Vasculature: Mild/moderate mostly calcified atherosclerotic disease throughout the aorta and branch v essels from the arch with mild narrowing of the branch vessels. No evidence of dissection flap. Mild/ moderate coronary arterial calcifications, mostly on the left. There is fusiform ectasia of the ascen ding aorta up to 3.6 cm. Mediastinum: No gross evidence of adenopathy. Airway: Central airways are patent. Lower neck: Thyroid appears somewhat heterogeneous with suggestion of small hypodense nodules, up to 6 mm on the right.. Soft Tissues: Unremarkable. Lungs/Pleura: Lungs appear hyperinflated with broadening of the AP dimension suggestive of COPD. Mild upper lobe scarring, greatest on the right. Mild bibasilar scarring/atelectasis, greatest on the lef t. No consolidation, pleural effusion, pneumothorax. Musculoskeletal: Mild/moderate multilevel degenerative changes throughout the thoracic spine. There a ppear to be 12 rib-bearing thoracic-type vertebral bodies, and cervical ribs at C7 are suspected. Mod erate anterior wedge compression deformity of T11 is technically age indeterminate but without defini te acute fracture lucency. There is also vacuum disc phenomenon at the T10-T11 level, which protrudes slightly into an associated superior endplate Schmorl's node at T11. Upper Abdomen: Partially visualized liver shows a few hypodense lesions which appear fairly circumscr ibed, favored to represent cysts or hemangiomas; these were also present on 07/11/2013 CT. Small hiata l hernia. No visualized adrenal mass. Partially seen peripherally calcified exophytic lesion from the posterior left kidney measuring at least 2.4 x 1.5 cm, appears grossly stable as seen compared to . IMPRESSION: 1. No evidence of pulmonary embolism. 2. Mildly prominent pulmonary trunk can be seen with pulmonary hypertension. 3. Mild/moderate mostly calcified atherosclerotic disease throughout the aorta and branch vessels fr om the arch with mild narrowing of the branch vessels. Fusiform ectasia of the ascending aorta up to 3.6 cm. No dissection. 4. Mild/moderate coronary arterial calcifications. Heart size is normal. 5. COPD changes and areas of mild scarring. No acute pulmonary abnormality. 6. Small hiatal hernia. 7. Hypodense hepatic lesions, likely cysts or hemangiomas. 8. Moderate T11 anterior wedge compression fracture deformity, technically age indeterminate but fav ored to be nonacute. Correlate for back pain.
[2023-10-09] MEDS ORDERED: ASPIRIN 325 MG TAB PO STA (16:20)
[2023-10-09] MEDS ORDERED: ACETAMINOPHEN TAB 325 MG TAB PO PRN (16:25)
[2023-10-09] MEDS ORDERED: NALOXONE 0.4 MG/ML 1 ML VIAL IV PRN (16:25)
[2023-10-09] MEDS ORDERED: DEXTROSE 50% SYRINGE 50 ML IVP PRN ×2 (22:03)
[2023-10-09] MEDS ORDERED: BACLOFEN 10 MG TAB PO SCH (22:15)
[2023-10-09 22:28] LABS: Glucose,Whole Blood 159 mg/dL (70-110)
[2023-10-10 06:51] LABS: Glucose,Whole Blood 108 mg/dL (70-110)
[2023-10-10] MEDS: INSULIN ASPART (NovoLOG) 100 UNIT/ML VIAL SQ SCH ×2 (06:51→14:36)
--- NOTE | 2023-10-10 07:29 | CA ---
Transthoracic Echo Report Name: Libby Westbrook Age: 78 Gender: F : 1945 Exam Date: 10/09/2023 16:40 Exam Location: [facility] Ht (in): 68 Wt (lb): 200 Ordering Physician: Checo Anne MD Attending/Referring Phys: [id number], Dayana [employer]er Ling Acosta RDCS Procedure CPT: Indications: CP Cardiac Hx: Technical Quality: Fair Contrast 1: Total Dose (mL): Contrast 2: Total Dose (mL): MEASUREMENTS (Male / Female) Normal Values 2D ECHO LV Diastolic Diameter PLAX 4.3 cm 4.2 - 5.9 / 3.9 - 5.3 cm LV Systolic Diameter PLAX 3.1 cm IVS Diastolic Thickness 1.2 cm 0.6 - 1.0 / 0.6 - 0.9 cm LVPW Diastolic Thickness 1.2 cm 0.6 - 1.0 / 0.6 - 0.9 cm LV Relative Wall Thickness 0.6 RV Internal Dim ED PLAX 2.7 cm LA Systolic Diameter LX 4.1 cm 3.0 - 4.0 / 2.7 - 3.8 cm LV Diastolic Volume MOD 4C 77.3 cm??? LV Systolic Volume MOD 4C 34.9 cm??? LV Ejection Fraction MOD 4C 54.9 % LV Cardiac Index MOD 4C 1767.1 cm???/min???m??? LV Diastolic Length 4C 7.7 cm LV Systolic Length 4C 5.9 cm LV Diastolic Volume MOD 2C 96.4 cm??? LV Systolic Volume MOD 2C 34.5 cm??? LV Ejection Fraction MOD 2C 64.2 % LV Cardiac Index MOD 2C 2576.9 cm???/min???m??? LV Diastolic Length 2C 8.0 cm LV Systolic Length 2C 6.1 cm LA Volume 38.7 cm??? 18 - 58 / 22 - 52 cm??? LA Volume Index 18.3 cm???/m??? 16 - 28 cm???/m??? M-MODE Aortic Root Diameter MM 3.3 cm MV E Point Septal Separation 0.9 cm AV Cusp Separation MM 2.0 cm DOPPLER AV Peak Velocity 168.9 cm/s AV Peak Gradient 11.4 mmHg AV Mean Velocity 109.8 cm/s AV Mean Gradient 5.8 mmHg AV Velocity Time Integral 29.4 cm AI Peak Velocity 147.4 cm/s AI Peak Gradient 8.7 mmHg AI Pressure Half Time 581.8 ms MV Area PHT 3.8 cm??? Mitral E Point Velocity 92.8 cm/s Mitral A Point Velocity 137.0 cm/s Mitral E to A Ratio 0.7 MV Deceleration Time 202.0 ms MV E' Velocity 5.6 cm/s Mitral E to MV E' Ratio 16.4 TR Peak Velocity 331.5 cm/s TR Peak Gradient 44.0 mmHg Right Ventricular Systolic Press 48.2 mmHg FINDINGS Left Ventricle Left ventricular ejection fraction is estimated at 55-60 %. Left ventricular cavity size normal. Mildly increased left ventricular wall thickness. Normal left ventricular wall motion. Right Ventricle Normal right ventricular size. Moderate pulmonary hypertension. Right ventricular systolic pressure estimated at 48 mm hg. Right Atrium Normal right atrial size. Left Atrium Mildly increased left atrial diameter. Mitral Valve Mitral annular calcification. No mitral stenosis or prolapse. Trace mitral regurgitation. Aortic Valve Trileaflet aortic valve. Mild aortic regurgitation. Tricuspid Valve Structurally normal tricuspid valve. Mild tricuspid regurgitation. Pulmonic Valve Pulmonic valve not well visualized. Pericardium No pericardial effusion. Aorta Normal size aortic root and proximal ascending aorta. CONCLUSIONS 1. Normal left ventricular size and systolic function 2. Mild tricuspid regurgitation with moderate pulmonary hypertension 3. Mild aortic regurgitation Previewed by: Dr. Hemant Hannah MD (Electronically Signed) Final Date: 10 October 2023 07:28
[2023-10-10] MEDS ORDERED: AMINOPHYLLINE 500 MG/20 ML VIAL IV PRN (08:52)
[2023-10-10] MEDS ORDERED: CAFFEINE CITRATE 60 MG/3 ML VIAL IV PRN (08:52)
[2023-10-10] MEDS ORDERED: REGADENOSON 0.4 MG/5 ML SYRINGE IV PRN (08:52)
[2023-10-10] MEDS ORDERED: lisinopriL 20 MG TAB PO SCH (09:00)
--- NOTE | 2023-10-10 11:08 | P.CRDCN ---
History of Present Illness History of present illness: HISTORY OF PRESENT ILLNESS: This is a 78-year-old female with a past medical history significant for hypertension and borderline diabetes (per patient). Patient does not follow with a quantitative analyst. We have been asked to see the patient in consultation for chest pain. Patient examined at the bedside. Patient states yesterday morning she woke up from her sleep with discomfort in her chest. She states that she got out of bed and move around some and then went back to bed to lay down. When she woke up the pain was still there. She states the pain persisted throughout most of the day yesterday. She denied any shortness of breath. Denied any palpitations. Denies any dizziness or lightheadedness. Denied any cough or fever. She does report the pain is worse with deep inspiration. She does have mild tenderness with chest wall palpation. She is a nonsmoker. She ambulates with a walker. She denies any history of CAD. * EKG reveals sinus mechanism with no signs of acute ischemia * Chest xray negative for acute process. Cardiomegaly with COPD. * Chest CT: Negative for pulmonary embolism. Mild to moderate calcified atherosclerotic disease throughout the aorta and branch vessels. Mild to moderate coronary artery calcifications. COPD changes. Small hiatal hernia. Hypodense hepatic lesions, likely cysts or hemangioma. * Laboratory data: * Current home cardiac medications include lisinopril 40 milligrams daily * Echocardiogram obtained revealing ejection fraction 55-60%, moderate pulmonary hypertension, trace mitral regurgitation, mild aortic regurgitation, mild tricuspid regurgitation REVIEW OF SYSTEMS: At the time of my exam: CONSTITUTIONAL: Denies fever or chills. HEENT: Denies blurred vision, vision changes, or eye pain. Denies hemoptysis CARDIOVASCULAR: Denies chest pain. Denies orthopnea. Denies PND. Denies palpitations RESPIRATORY: Denies shortness of breath. GASTROINTESTINAL: Denies abdominal pain. Denies nausea or vomiting. HEMATOLOGIC: Denies bleeding disorders. GENITOURINARY: Denies any blood in urine. SKIN: Denies pruitis. Denies rash. PHYSICAL EXAM: VITAL SIGNS: Reviewed. GENERAL: Well-developed in no acute distress. HEENT: Head is normocephalic. Pupils are equal, round. Sclerae anicteric. Mucous membranes of the mouth are moist. Neck supple. No JVD or thyromegaly LUNGS: Respirations even and unlabored. Lungs essentially clear to auscultation bilaterally. HEART: Regular rate and rhythm. S1 and S2 heard. +S4 ABDOMEN: Soft. Nondistended. Nontender. EXTREMITIES: Normal range of motion. No clubbing or cyanosis. Peripheral pulses intact. No lower extremity edema NEUROLOGIC: Awake and alert. Oriented x 3. ASSESSMENT: Chest pain, troponins negative 3 Mild to moderate coronary artery calcifications, per CT scan Hypertension Borderline diabetes Moderate pulmonary hypertension PLAN: An acute coronary event has been ruled out Obtain 2-D echo to assess cardiac structure and function Resume home cardiac medications Patient to undergo Lexiscan stress test today to assess for ischemia Further recommendations pending patient's course Nurse practitioner note has been reviewed by physician. Signing provider agrees with the documented findings, assessment, and plan of care. Past Medical History Past Medical History: Diabetes Mellitus, GERD/Reflux, Hyperlipidemia, Hypertension, Osteoarthritis (OA) Additional Past Medical History / Comment(s): HX OF KIDNEY STONES, HERNIATED DISCS WITH BACK PAIN, IBS, GOUT. History of Any Multi-Drug Resistant Organisms: None Reported Past Surgical History: Appendectomy, Hysterectomy, Orthopedic Surgery Additional Past Surgical History / Comment(s): RIGHT KNEE SURGERY,2021 left leg sx, Past Anesthesia/Blood Transfusion Reactions: Postoperative Nausea & Vomiting (PONV) Past Psychological History: No Psychological Hx Reported Additional Psychological History / Comment(s): . Smoking Status: Never smoker Past Alcohol Use History: None Reported Past Drug Use History: None Reported - Past Family History Son(s) Family Medical History: Cancer Medications and Allergies Home Medications Medication Instructions Recorded Confirmed Type Cholecalciferol [Vitamin D3 (25 50 mcg PO DAILY 03/20/14 10/09/23 History Mcg = 1000 Iu)] Indapamide [Lozol] 2.5 mg PO DAILY 01/04/18 10/09/23 History lisinopriL 40 mg PO DAILY 01/04/18 10/09/23 History Baclofen [Lioresal] 10 mg PO HS 02/11/22 10/09/23 History Pioglitazone [Actos] 15 mg PO HS 02/11/22 10/09/23 History Allergies Allergy/AdvReac Type Severity Reaction Status Date / Time gabapentin [From Neurontin] AdvReac Nausea & Verified 10/09/23 15:26 Vomiting PAIN MEDS AdvReac Nausea & Uncoded 10/09/23 15:26 Vomiting Physical Exam Vitals: Vital Signs Temp Pulse Pulse Resp BP BP Pulse Ox 10/10/23 07:00 98.5 F 82 16 154/84 95 10/10/23 01:56 98.1 F 86 15 168/71 95 10/09/23 20:38 98.6 F 86 15 143/78 96 10/09/23 20:13 97.7 F 91 18 153/72 95 10/09/23 19:00 91 18 140/53 95 10/09/23 16:00 92 20 157/73 95 10/09/23 15:00 90 20 149/88 95 10/09/23 14:00 85 20 141/79 96 10/09/23 13:00 84 20 141/97 96 10/09/23 11:54 97.7 F 95 18 145/82 97 Intake and Output 10/09/23 10/10/23 10/10/23 22:59 06:59 14:59 Other: # Voids 1 1 Weight 90.718 kg Results 10/09/23 12:17 10/09/23 12:17 Cardiac Enzymes 10/09/23 10/09/23 10/09/23 Range/Units 12:17 12:17 17:31 AST 17 (14-36) U/L Troponin I <0.012 <0.012 (0.000-0.034) ng/mL 10/09/23 Range/Units 20:18 AST (14-36) U/L Troponin I <0.012 (0.000-0.034) ng/mL Coagulation 10/09/23 Range/Units 12:17 PT 10.2 (10.0-12.5) sec APTT 21.0 L (22.0-30.0) sec CBC 10/09/23 Range/Units 12:17 WBC 11.0 H (3.8-10.6) k/uL RBC 3.46 L (3.80-5.40) m/uL Hgb 11.1 L (11.4-16.0) gm/dL Hct 34.7 (34.0-46.0) % Plt Count 224 (150-450) k/uL Comprehensive Metabolic Panel 10/09/23 Range/Units 12:17 Sodium 139 (137-145) mmol/L Potassium 4.0 (3.5-5.1) mmol/L Chloride 103 (98-107) mmol/L Carbon Dioxide 28 (22-30) mmol/L BUN 27 H (7-17) mg/dL Creatinine 0.82 (0.52-1.04) mg/dL Glucose 108 H (74-99) mg/dL Calcium 9.6 (8.4-10.2) mg/dL AST 17 (14-36) U/L ALT 17 (4-34) U/L Alkaline Phosphatase 83 (38-126) U/L Total Protein 6.1 L (6.3-8.2) g/dL Albumin 3.6 (3.5-5.0) g/dL Current Medications Generic Name Dose Route Start Last Admin Trade Name Freq PRN Reason Stop Dose Admin Acetaminophen 650 mg 10/09/23 16:25 10/09/23 22:21 Acetaminophen Tab 325 Mg Tab PO 650 mg Q6HR PRN Administration Mild Pain or Fever > 100.5 Baclofen 10 mg 10/09/23 22:15 10/09/23 22:21 Baclofen 10 Mg Tab PO 10 mg HS MERE Administration Dextrose/Water 25 ml 10/09/23 22:03 Dextrose 50% Syringe 50 Ml IVP PER PROTOCOL PRN Hypoglycemia Protocol Dextrose/Water 50 ml 10/09/23 22:03 Dextrose 50% Syringe 50 Ml IVP PER PROTOCOL PRN Hypoglycemia Protocol Insulin Aspart 0 unit 10/10/23 07:30 10/10/23 06:51 Insulin Aspart (Novolog) 100 Unit/Ml Vial SQ Not Given ACHS [facility] Protocol Lisinopril 40 mg 10/10/23 09:00 10/10/23 08:22 Lisinopril 20 Mg Tab PO 40 mg DAILY MERE Administration Naloxone HCl 0.2 mg 10/09/23 16:25 Naloxone 0.4 Mg/Ml 1 Ml Vial IV Q2M PRN Opioid Reversal Intake and Output 10/09/23 10/10/23 10/10/23 22:59 06:59 14:59 Other: # Voids 1 1 Weight 90.718 kg 10/09/23 12:17 10/09/23 12:17
--- NOTE | 2023-10-10 13:21 | NM ---
EXAMINATION TYPE: NM stress lexiscan cardiolite DATE OF EXAM: 10/10/2023 COMPARISON: NONE CLINICAL INDICATION: Female, 78 years old with history of CP; TECHNIQUE: After the intravenous administration of 9.9 mCi Tc 99m Sestamibi - Cardiolite resting SPE CT images acquired 45 minutes post injection. The patient received 0.4mg Lexiscan, 24.0 mCi Tc 99m Sestamibi - Stress images obtained [address] injection FINDINGS: Review of stress and rest SPECT images reduced uptake on the stress images involving the myocardial s eptum. Gated analysis shows normal wall motion with an estimated left ventricular ejection fraction of 68 %. IMPRESSION: 1. Reduced uptake involving the myocardial septum on stress images most likely is artifactual. Recomm end correlation clinically and with EKG for confirmation as a small area of stress-induced reversible ischemia not entirely excluded..
[2023-10-10 14:28] VITALS: BP 130/63; PULSE 101; RESP 18; TEMP 98.3
--- NOTE | 2023-10-10 15:04 | P.HPIM ---
History of Present Illness H&P Date: 10/10/23 Chief Complaint: Chest pain History of Physical and Discharge Summary: This is a 78-year-old female with past medical history significant for hyperte nsion, hyperlipidemia, GERD, osteoarthritis presenting to the ER via EMS with left-sided chest pain radiating into the back, worsened with deep inspiration, reproducible. Chest wall palpitation tenderness. Reports pain woke her up history morning prior to 0400, ambulating to the bathroom and back to bed, pain ongoing upon reawakening. Reports negative shortness of breath, sweats, diaphoresis. Denies nausea vomiting or diarrhea. Denies abdominal pain. Positive d-dimer. CT reported negative for pulmonary embolism. Left lower extremity venous Doppler reported negative for DVT.Positive pulmonary hypertension, mild to moderate coronary arterial calcifications mostly on the left. EKG was sinus rhythm, troponins negative 3, echo reported moderate pulmonary hypertension, mild aortic regurgitation, normal LV function .chest x- ray reported negative acute process, cardiomegaly with COPD. Review of Systems ROS Statement: Those systems with pertinent positive or pertinent negative responses have been documented in the HPI. ROS Other: All systems not noted in ROS Statement are negative. Past Medical History Past Medical History: Diabetes Mellitus, GERD/Reflux, Hyperlipidemia, H ypertension, Osteoarthritis (OA) Additional Past Medical History / Comment(s): HX OF KIDNEY STONES, HERNIATED DISCS WITH BACK PAIN, IBS, GOUT. History of Any Multi-Drug Resistant Organisms: None Reported Past Surgical History: Appendectomy, Hysterectomy, Orthopedic Surgery Additional Past Surgical History / Comment(s): RIGHT KNEE SURGERY,2021 left leg sx, Past Anesthesia/Blood Transfusion Reactions: Postoperative Nausea & Vomiting (PONV) Past Psychological History: No Psychological Hx Reported Additional Psychological History / Comment(s): . Smoking Status: Never smoker Past Alcohol Use History: None Reported Past Drug Use History: None Reported - Past Family History Son(s) Family Medical History: Cancer Medications and Allergies Home Medications Medication Instructions Recorded Confirmed Type Cholecalciferol [Vitamin D3 (25 50 mcg PO DAILY 03/20/14 10/09/23 History Mcg = 1000 Iu)] Indapamide [Lozol] 2.5 mg PO DAILY 01/04/18 10/09/23 History lisinopriL 40 mg PO DAILY 01/04/18 10/09/23 History Baclofen [Lioresal] 10 mg PO HS 04/22/22 12/18/23 History Pioglitazone [Actos] 15 mg PO HS 02/11/22 10/09/23 History Allergies Allergy/AdvReac Type Severity Reaction Status Date / Time gabapentin [From Neurontin] AdvReac Nausea & Verified 10/09/23 15:26 Vomiting PAIN MEDS AdvReac Nausea & Uncoded 10/09/23 15:26 Vomiting Physical Exam Vitals: Vital Signs Temp Pulse Pulse Resp BP BP BP 10/10/23 14:15 98.3 F 101 H 18 130/63 10/10/23 07:00 98.5 F 82 16 154/84 10/10/23 01:56 98.1 F 86 15 168/71 10/09/23 20:38 98.6 F 86 15 143/78 10/09/23 20:13 97.7 F 91 18 153/72 10/09/23 19:00 91 18 140/53 10/09/23 16:00 92 20 157/73 10/09/23 15:00 90 20 149/88 Pulse Ox 10/10/23 14:15 95 10/10/23 07:00 95 10/10/23 01:56 95 10/09/23 20:38 96 10/09/23 20:13 95 10/09/23 19:00 95 10/09/23 16:00 95 10/09/23 15:00 95 Intake and Output 10/09/23 10/10/23 10/10/23 22:59 06:59 14:59 Intake Total 0 Balance 0 Intake: Oral 0 Other: # Voids 1 1 1 Weight 90.718 kg - Exam PHYSICAL EXAMINATION: Patient is alert and oriented 3, sitting up in the bed comfortably, no acute distress. HEENT: Normocephalic. Neck is supple. Pupils reactive. MMM Neck: Supple, no JVD. CHEST EXAMINATION: Trachea is central. Symmetrical expansion. Lung karimi clear to auscultation and percussion. Chest wall palpitation tenderness. CARDIAC: Normal S1, S2, Systolic murmur. ABDOMEN: Soft. Bowel sounds normal. No organomegaly. Diffuse mild bilateral lower quadrant tenderness. Extremities: No edema,No clubbing or cyanosis, positive DP pulse Neurological: Cranial nerves II through XII grossly and .Strength and sensation grossly intact. Skin: Warm and dry, No rash. Results CBC & Chem 7: 10/09/23 12:17 10/09/23 12:17 Labs: Abnormal Lab Results - Last 24 Hours (Table) 10/09/23 Range/Units 22:27 POC Glucose (mg/dL) 159 H (70-110) mg/dL Thrombosis Risk Factor Assmnt - Choose All That Apply Any of the Below Risk Factors Present?: Yes Each Factor Represents 1 point: Obesity (BMI >25) Other Risk Factors: Yes Each Risk Factor Represents 3 Points: Age 75 years or older Other congenital or acquired thrombophilia - If yes, enter type in comment: No Thrombosis Risk Factor Assessment Total Risk Factor Score: 4 Thrombosis Risk Factor Assessment Level: Moderate Risk Assessment and Plan Assessment: Chest pain, troponin is negative 3, acute coronary event ruled out Pulmonary hypertension mild to moderate coronary arterial calcifications mostly on the left reported per CTA Hypertension Hyperlipidemia Diabetes type 2 [id number] Osteoarthritis GERD Plan: Continue on current medication regime ,monitoring or symptomatic treatment. Evaluated by cardiology and patient is scheduled for Lexiscan stress test. Patient will be discharged home today in a stable condition with guarded prognosis pending stress test results, final DC recommendations and clearance per cardiology. Discharge Medication List Cholecalciferol [Vitamin D3 (25 Mcg = 1000 Iu)] 50 mcg PO DAILY 03/20/14 [History] Indapamide [Lozol] 2.5 mg PO DAILY 01/04/18 [History] lisinopriL 40 mg PO DAILY 01/04/18 [History] Baclofen [Lioresal] 10 mg PO HS 02/11/22 [History] Pioglitazone [Actos] 15 mg PO HS 02/11/22 [History] The impression and plan of care has been dictated as directed. : I performed a history and examination of this patient, discussed the same with the dictator. I agree with the dictator's note ,documented as a scribe. Any additional findings or plans will be noted.
--- NOTE | 2023-10-11 13:41 | CA ---
Lexiscan Nuclear Stress Test Report Name: Libby Westbrook Exam Date: 10/10/2023 11:16 Exam Location: [place] Stress Ht (in): 68 Wt (lb): 200 BSA: 2.04 Ordering Phys: TIM TAPIA Referring Phys: TIM TAPIA Technologist: LUZ GONSALES Age: 78 Gender: F : 1945 Procedure CPT: Indications: ICD-10 Codes: Patient History: CP, HTN, DM, CHOL, FAMILY HX Medications: SEE CHART Meds past 24 hrs: Pretest Chest Pain: STRESS TEST Lexiscan Protocol Exercise Duration (min:sec): 02:[address] Depressions (mm): Angina Score: Rm Score: Resting HR (bpm): 89 Peak HR (bpm): 112 Resting BP (mmHg): 166 / 82 Peak BP (mmHg): 165 / 70 MPHR: 143 Target HR: 122 % MPHR: 78 METS: 1.0 Total Dose: Peak Dose: Atropine: Double Product: 04084 BP Response: Stress Termination: END OF DOSAGE Stress Symptoms: Stress Summary: ECG ANALYSIS Resting ECG: Sinus rhythm. Normal conduction. No arrhythmias. Normal repolarization. Stress ECG: No ECG changes from baseline with Lexiscan infusion. CONCLUSIONS No ECG evidence of ischemia with Lexiscan infusion. Nuclear test results to follow. Dr. Hemant Hannah MD (Electronically Signed) Final Date: 10 October 2023 12:19
== END 2023-10-10 15:21 | disposition home or self-care (01) ==
LOC: EC 11:40 → 6NMEDSUR 16:25
PROVIDERS: ADMIT Family Medicine; ATTEND Family Medicine
DX: R07.89 Other chest pain (principal); M54.9 Dorsalgia, unspecified; M19.90 Unspecified osteoarthritis, unspecified site; E78.5 Hyperlipidemia, unspecified; K21.9 Gastro-esophageal reflux disease without esophagitis; Z87.442 Personal history of urinary calculi; M10.9 Gout, unspecified; I10 Essential (primary) hypertension; I27.20 Pulmonary hypertension, unspecified; J44.9 Chronic obstructive pulmonary disease, unspecified; E11.9 Type 2 diabetes mellitus without complications; E66.9 Obesity, unspecified; Z68.30 Body mass index [BMI] 30.0-30.9, adult; I25.10 Atherosclerotic heart disease of native coronary artery without angina pectoris; D18.03 Hemangioma of intra-abdominal structures; K58.9 Irritable bowel syndrome, unspecified; Z79.899 Other long term (current) drug therapy; Z79.84 Long term (current) use of oral hypoglycemic drugs; Z88.8 Allergy status to other drugs, medicaments and biological substances; Z90.49 Acquired absence of other specified parts of digestive tract; Z90.710 Acquired absence of both cervix and uterus; Z80.9 Family history of malignant neoplasm, unspecified
CPT/HCPCS: 99285; 36415; 93005; 93017; 93306; 85379; 80053; 83690; 83735; 84484; 85025; 85610; 85730; 83036; 71046; 93971; 71275; 78452; G0378 ×2; A9500; J2785; Q9967

== ENCOUNTER → 2023-10-26 | Outpatient (CLI) | payer MEDICARE, OTHER ==
--- NOTE | 2023-10-27 18:51 | MM ---
Reason for Exam: Screening (asymptomatic). Last mammogram was performed 1 year(s) and 4 month(s) ago. Patient History: Menarche at age 15. First Full-Term at age 20. Hysterectomy at age 43. Postmenopausal. Estrogen for 2 years from age 49 until age 51. Progesterone for 2 years from age 49 until age 51. Benign Excisional Biopsy on the right side. Risk Values: Agustina 5 year model risk: 1.4%. NCI Lifetime model risk: 2.6%. Prior Study Comparison: 11/28/2019 Bilateral Screening Mammogram, [facility]. 06/03/2021 Bilateral Screening Mammogram, [facility]. 07/22/2022 Bilateral MG 3D screening mammo w/cad, [facility]. Tissue Density: There are scattered fibroglandular densities. Findings: Analyzed By CAD. Pattern appears symmetrical and stable. No suspicious groups of microcalcifications, spiculated or lobular masses, architectural distortion or other secondary signs of malignancy are mammographically apparent. Overall Assessment: Benign, BI-RAD 2 Management: Screening Mammogram of both breasts in 1 year. A negative mammogram report should not preclude additional follow up of suspicious palpable abnormalities. Patient should continue monthly self breast exam. A clinical breast exam by your physician is recommended on an annual basis and results should be correlated with mammographic findings. Electronically signed and approved by: Gigi Paredes D.O. Radiologis
== END | disposition home or self-care (01) ==
LOC: RADMAMWWP 09:52
PROVIDERS: ATTEND Family Medicine
DX: Z12.31 Encounter for screening mammogram for malignant neoplasm of breast (principal); Z78.0 Asymptomatic menopausal state
CPT/HCPCS: 77063; 77067

== ENCOUNTER → 2024-01-25 | Outpatient (CLI) | payer MEDICARE, OTHER ==
[2024-01-25 15:13] LABS: ALT 21 U/L (8-44); AST 20 U/L (13-35); LDL Cholesterol,Calculated 152.5 mg/dL (0.0-131.0)
== END | disposition home or self-care (01) ==
LOC: LABWHC1 08:51
PROVIDERS: ATTEND Internal Medicine Interventional Cardiology
DX: E78.2 Mixed hyperlipidemia (principal)
CPT/HCPCS: 36415; 80061; 84450; 84460

== ENCOUNTER 2024-07-09 20:38 | Inpatient (IN) | payer MEDICARE, OTHER ==
[2024-07-09 21:10] LABS: Basophils % (A) 0 %; Eosinophils # (A) 0.1 k/uL (0-0.7); Eosinophils % (A) 1 %; HCT 38.3 % (34.0-46.0); HGB 12.1 gm/dL (11.4-16.0); Hypochromasia Slight; Lymphocytes # (A) 0.6 k/uL (1.0-4.8); Lymphocytes % (A) 4 %; MCH 30.9 pg (25.0-35.0); MCHC 31.5 g/dL (31.0-37.0); MCV 97.9 fL (80.0-100.0); Mean Platelet Volume 7.9; Monocytes # (A) 0.7 k/uL (0-1.0); Monocytes % (A) 5 %; Neutrophils # (A) 14.2 k/uL (1.3-7.7); Neutrophils % (A) 91 %; Platelet Count 226 k/uL (150-450); RBC 3.91 m/uL (3.80-5.40); RDW 13.3 % (11.5-15.5); WBC 15.7 k/uL (3.8-10.6)
--- NOTE | 2024-07-09 21:14 | ED ---
General Adult HPI - General Chief complaint: Fall Stated complaint: Fall, L Hip Pain Time Seen by Provider: 07/09/24 20:39 Source: patient, EMS, RN notes reviewed, old records reviewed Mode of arrival: EMS Limitations: no limitations - History of Present Illness Initial comments: 78-year-old female status post fall with left hip pain. Patient states she was in the kitchen opening a drawer, fell backwards landing on Oralyte left hip. No head injury. She had a minor injury to the left elbow which was bandaged by paramedics. 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 Patient states her pain is better controlled. No chest or abdominal pain. - Related Data Home Medications Medication Instructions Recorded Confirmed Cholecalciferol [Vitamin D3 (25 50 mcg PO DAILY 03/20/14 10/09/23 Mcg = 1000 Iu)] Indapamide [Lozol] 2.5 mg PO DAILY 01/04/18 10/09/23 lisinopriL 40 mg PO DAILY 01/04/18 10/09/23 Baclofen [Lioresal] 10 mg PO HS 02/11/22 10/09/23 Pioglitazone [Actos] 15 mg PO HS 02/11/22 10/09/23 Allergies Allergy/AdvReac Type Severity Reaction Status Date / Time gabapentin [From Neurontin] AdvReac Nausea & Verified 07/09/24 20:48 Vomiting PAIN MEDS AdvReac Nausea & Uncoded 07/09/24 20:48 Vomiting Review of Systems ROS Statement: Those systems with pertinent positive or pertinent negative responses have been documented in the HPI. ROS Other: All systems not noted in ROS Statement are negative. Past Medical History Past Medical History: Diabetes Mellitus, GERD/Reflux, Hyperlipidemia, Hypertension, Osteoarthritis (OA) Additional Past Medical History / Comment(s): HX OF KIDNEY STONES, HERNIATED DISCS WITH BACK PAIN, IBS, GOUT. History of Any Multi-Drug Resistant Organisms: None Reported Past Surgical History: Appendectomy, Hysterectomy, Orthopedic Surgery Additional Past Surgical History / Comment(s): RIGHT KNEE SURGERY,2021 left leg sx, Past Anesthesia/Blood Transfusion Reactions: Postoperative Nausea & Vomiting (PONV) Past Psychological History: No Psychological Hx Reported Smoking Status: Never smoker Past Alcohol Use History: None Reported Past Drug Use History: None Reported - Past Family History Son(s) Family Medical History: Cancer General Exam Limitations: no limitations General appearance: alert, in no apparent distress Head exam: Present: atraumatic, normocephalic Eye exam: Present: normal appearance, PERRL ENT exam: Present: normal exam Neck exam: Present: normal inspection. Absent: tenderness, meningismus Respiratory exam: Present: normal lung sounds bilaterally. Absent: respiratory distress, wheezes Cardiovascular Exam: Present: regular rate, normal rhythm GI/Abdominal exam: Present: soft. Absent: tenderness, guarding Extremities exam: Absent: full ROM (Pain with range of motion left hip) Neurological exam: Present: alert, oriented X3, CN II-XII intact. Absent: motor sensory deficit Skin exam: Present: warm, dry, intact Course Vital Signs 07/09/24 07/09/24 07/09/24 20:41 21:26 21:48 Temperature 97.9 F Pulse Rate 106 H 101 H 104 H Respiratory 18 16 18 Rate Blood Pressure 165/86 165/86 O2 Sat by Pulse 93 L 93 L 93 L Oximetry - Reevaluation(s) Reevaluation #1: 07/09/24 22:50 CT of the pelvis without contrast has been ordered, results pending Medical Decision Making - Medical Decision Making Was pt. sent in by a medical professional or institution (, PA, HOMICIDE INVESTIGATOR, urgent care, hospital, or detention...) When possible be specific @ -No Did you speak to anyone other than the patient for history (EMS, parent, family, police, friend...)? What history was obtained from this source @ -No Did you review nursing and triage notes (agree or disagree)? Why? @ -I reviewed and agree with nursing and triage notes Were old charts reviewed (outside hosp., previous admission, EMS record, old EKG , old radiological studies, urgent care reports/EKG's, detention records)? Report findings @ -No old charts were reviewed Differential Diagnosis (chest pain, altered mental status, abdominal pain women, abdominal pain men, vaginal bleeding, weakness, fever, dyspnea, syncope, headache, dizziness, GI bleed, back pain, seizure, CVA, palpatations, mental health, musculoskeletal)? @ -Not applicable EKG interpreted by me (3pts min.). @Sinus tach rate of 103, NH interval 173, QRS duration 83, QTc [address] segment changes. X-rays interpreted by me (1pt min.). X-ray of the left hip shows inferior pubic rami fracture on the left and lucency on the lateral aspect of the proximal femur which is believed to be old. CT interpreted by me (1pt min.). @ -None done U/S interpreted by me (1pt. min.). @ -None done What testing was considered but not performed or refused? (CT, X-rays, U/S, labs)? Why? @ -None What meds were considered but not given or refused? Why? @ -None Did you discuss the management of the patient with other professionals (professionals i.e. , PA, HOMICIDE INVESTIGATOR, lab, RT, psych nurse, social worker health services, patient centered care specialist, teacher, police officer, outsole caser)? Give summary @ -Dr. Whitlock Was smoking cessation discussed for >3mins.? @ -No Was critical care preformed (if so, how long)? @ -No Were there social determinants of health that impacted care today? How? (Homelessness, low income, unemployed, alcoholism, drug addiction, transportation, low edu. Level, literacy, decrease access to med. care, prison, rehab)? @ -No Was there de-escalation of care discussed even if they declined (Discuss DNR or withdrawal of care, Hospice)? DNR status @ -No What co-morbidities impacted this encounter? (DM, HTN, Smoking, COPD, CAD, Cancer, CVA, ARF, Chemo, Hep., AIDS, mental health diagnosis, sleep apnea, morbid obesity)? @ -None Was patient admitted / discharged? Hospital course, mention meds given and route, prescriptions, significant lab abnormalities, going to OR and other pertinent info. @ -78-year-old female with mechanical fall, left pubic rami fracture. CT has been ordered, results pending. Patient will be admitted to orthopedics with internal medicine on consult. Pain medicine provided. Undiagnosed new problem with uncertain prognosis? @ -No Drug Therapy requiring intensive monitoring for toxicity (Heparin, Nitro, Insulin, Cardizem)? @ -No Were any procedures done? @ -No Diagnosis/symptom? @ -Pubic rami fracture Acute, or Chronic, or Acute on Chronic? @ -[Acute Uncomplicated (without systemic symptoms) or Complicated (systemic symptoms)? @ -Default Side effects of treatment? @ -No Exacerbation, Progression, or Severe Exacerbation? @ -No Poses a threat to life or bodily function? How? (Chest pain, [place], [place], pneumonia, PE, COPD, DKA, ARF, appy, cholecystitis, CVA, Diverticulitis, Homicidal, Suicidal, threat to staff... and all critical care pts) @ -[Yes, fracture in the elderly - Lab Data Result diagrams: 07/09/24 20:57 07/09/24 20:57 Lab Results 07/09/24 07/09/24 07/09/24 Range/Units 20:57 20:57 20:57 WBC 15.7 H (3.8-10.6) k/uL RBC 3.91 (3.80-5.40) m/uL Hgb 12.1 (11.4-16.0) gm/dL Hct 38.3 (34.0-46.0) % MCV 97.9 (80.0-100.0) fL MCH 30.9 (25.0-35.0) pg MCHC 31.5 (31.0-37.0) g/dL RDW 13.3 (11.5-15.5) % Plt Count 226 (150-450) k/uL MPV 7.9 Neutrophils % 91 % Lymphocytes % 4 % Monocytes % 5 % Eosinophils % 1 % Basophils % 0 % Neutrophils # 14.2 H (1.3-7.7) k/uL Lymphocytes # 0.6 L (1.0-4.8) k/uL Monocytes # 0.7 (0-1.0) k/uL Eosinophils # 0.1 (0-0.7) k/uL Basophils # 0.0 (0-0.2) k/uL Hypochromasia Slight PT 11.1 (10.0-12.5) sec INR 1.0 (<1.2) APTT 18.1 L (22.0-30.0) sec Sodium 136 L (137-145) mmol/L Potassium 4.2 (3.5-5.1) mmol/L Chloride 103 (98-107) mmol/L Carbon Dioxide 24 (22-30) mmol/L Anion Gap 9 mmol/L BUN 30 H (7-17) mg/dL Creatinine 0.91 (0.52-1.04) mg/dL Est GFR (CKD-EPI)AfAm 70 (>60 ml/min/1.73 sqM) Est GFR (CKD-EPI)NonAf 61 (>60 ml/min/1.73 sqM) Glucose 137 H (74-99) mg/dL Calcium 9.7 (8.4-10.2) mg/dL Total Bilirubin 0.8 (0.2-1.3) mg/dL AST 31 (14-36) U/L ALT 30 (4-34) U/L Alkaline Phosphatase 60 (38-126) U/L Total Protein 6.2 L (6.3-8.2) g/dL Albumin 3.9 (3.5-5.0) g/dL Disposition Clinical Impression: Fall, Fracture of pubic ramus Disposition: ADMITTED IP TO THIS HOSP Condition: Stable Is patient prescribed a controlled substance at d/c from ED?: No Referrals: Tab Ang MD [Primary Care Provider] - 1-2 days Time of Disposition: 22:53
[2024-07-09 21:24] LABS: ALT 30 U/L (4-34); African American GFR (CKD) 70 (>60 ml/min/1.73 sqM); Albumin 3.9 g/dL (3.5-5.0); Anion Gap 9 mmol/L; Blood Urea Nitrogen 30 mg/dL (7-17); Calcium 9.7 mg/dL (8.4-10.2); Carbon Dioxide 24 mmol/L (22-30); Chloride 103 mmol/L (98-107); Glucose 137 mg/dL (74-99); Non-African American GFR(CKD) 61 (>60 ml/min/1.73 sqM); Sodium 136 mmol/L (137-145); Total Bilirubin 0.8 mg/dL (0.2-1.3); Total Protein 6.2 g/dL (6.3-8.2)
[2024-07-09 21:25] LABS: AST 31 U/L (14-36); Alkaline Phosphatase 60 U/L (38-126); Potassium 4.2 mmol/L (3.5-5.1); Prothrombin Time 11.1 sec (10.0-12.5)
[2024-07-09 21:29] LABS: Partial Thromboplastin Time 18.1 sec (22.0-30.0)
--- NOTE | 2024-07-09 21:29 | XR ---
EXAMINATION TYPE: XR chest 1V DATE OF EXAM: 07/09/2024 COMPARISON: 10/09/2023 INDICATION: Fracture left hip TECHNIQUE: Single frontal view of the chest is obtained. Imaging semiupright position FINDINGS: The heart size is normal. The pulmonary vasculature is normal. The lungs are clear. IMPRESSION: 1. No acute pulmonary process. [facility], , 07/09/2024 9:26 PM
--- NOTE | 2024-07-09 21:32 | XR ---
EXAMINATION TYPE: XR femur LT DATE OF EXAM: 07/09/2024 COMPARISON: 02/13/2022 fluoroscopy HISTORY: Fall, pain TECHNIQUE: 2 view left femur FINDINGS: Medullary soni and fixation pin is within the femoral head and neck. There is a subtle lucen cy along the lateral cortex. This appears be an old fracture improvement from comparison. No definite acute osseous fracture is identified. There is a fracture of the distal fixation bolts within the metaphyseal femur. Degenerative changes are at the knee. IMPRESSION: 1. No acute osseous abnormality identified. 2. There are some old changes at the left hip which appear to be evident previously. 3. Interval fracture of the distal medullary soni fixation screw. [facility], , 07/09/2024 9:30 PM
[2024-07-09] MEDS: MORPHINE SULFATE 2 MG/ML SYRINGE IVP STA (22:30)
[2024-07-09] MEDS ORDERED: HYDROmorphone 1 MG/ML 1 ML SYRINGE IVP PRN (22:32)
[2024-07-09] MEDS ORDERED: NALOXONE 0.4 MG/ML 1 ML VIAL IV PRN (22:32)
[2024-07-09] MEDS ORDERED: ACETAMINOPHEN TAB 325 MG TAB PO PRN (22:32)
[2024-07-09] MEDS: SODIUM CHLORIDE 0.9% 1,000 ML IV SCH (23:03)
--- NOTE | 2024-07-09 23:33 | CT ---
EXAMINATION TYPE: CT pelvis wo con DATE OF EXAM: 07/09/2024 COMPARISON: Left femur x-ray earlier today HISTORY: r/o hip fracture. Pt had xrays done here tonight. Original hardware placed 2-2.5 years ago p er pt. CT DLP: 446 mGycm Automated exposure control for dose reduction was used. FINDINGS: Advanced narrowing of the right hip joint is present. 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 Surgical change through subtrochanteric fracture left proximal femur is redemonstrated. Moderate narrowing in the left hip joint. There is age indeter minate minimally displaced fracture through the inferior ramus of the left hip. There is acute nondis placed linear fracture through the superior ramus seen best coronal image 70. Pubic symphysis is inta ct. Suspect acute nondisplaced fracture through the left sacrum as there is cortical disruption and l inear lucency axial image 36. Sacroiliac joints are preserved. There is fat stranding in the left pel vis just anterior to the mid sacrum axial image 43. Few sigmoid colonic diverticula are present. Uter us is surgically absent. IMPRESSION: ACUTE NONDISPLACED FRACTURE THROUGH THE CENTRAL ASPECT OF THE LEFT SUPERIOR PELVIC RAMUS. ACUTE NONDI SPLACED FRACTURE THROUGH THE LEFT UPPER SACRUM. AGE-INDETERMINATE SUSPECT ACUTE NONDISPLACED FRACTURE THROUGH THE LEFT INFERIOR PELVIC RAMUS. NO ABNORMAL WIDENING OF THE PUBIC SYMPHYSIS. THERE IS SMALL ILL-DEFINED HEMATOMA IN THE POSTERIOR LEFT PELVIS JUST ANTERIOR TO THE MID SACRUM. [facility], , 07/09/2024 11:31 PM
[2024-07-10] MEDS: HYDROmorphone 0.5 MG/0.5 ML SYRINGE IVP PRN (01:10)
[2024-07-10] MEDS: ONDANSETRON 4 MG/2 ML VIAL IVP PRN ×2 (06:32→17:46)
[2024-07-10] MEDS ORDERED: DEXTROSE 50% SYRINGE 50 ML IVP PRN ×2 (08:27)
[2024-07-10] MEDS: METOCLOPRAMIDE 5 MG/ML 2 ML VIAL IVP PRN (10:08)
[2024-07-10 12:11] LABS: Glucose,Whole Blood 151 mg/dL (70-110)
--- NOTE | 2024-07-10 12:11 | P.CONS ---
History of Present Illness - Reason for Consult Consult date: 07/10/24 Medical management Requesting physician: Nick Whitlock - Chief Complaint Left hip pain status post fall - History of Present Illness This is a 78-year-old female with past medical history significant for hypertension, hyperlipidemia, GERD, osteoarthritis presenting to the ER status post fall, sustaining pubic ramus fracture as reported per pelvis CT. Patient stated she was throwing something away in the garbage can, had opened a drawer, lost her balance fell backwards landing on her left left hip, braced her fall with her left elbow. Denied head trauma. Denies lightheadedness, dizziness or focal deficits. Denies headache. chest x-ray reported no acute pulmonary p rocess. Denies chest pain, palpitations or shortness of breath. mild tachycardia, maintaining O2 sats in the mid to high 90s on 2 L nasal cannula. Afebrile, WBC 15.7, hemoglobin 12.1, platelets 226, INR 1, electrolytes within normal limits, bicarb 24 BUN 30 creatinine 0.91. Glucose 137. Review of Systems ROS Statement: Those systems with pertinent positive or pertinent negative responses have been documented in the HPI. ROS Other: All systems not noted in ROS Statement are negative. Past Medical History Past Medical History: Diabetes Mellitus, GERD/Reflux, Hyperlipidemia, Hypertension, Osteoarthritis (OA) Additional Past Medical History / Comment(s): HX OF KIDNEY STONES, HERNIATED DISCS WITH BACK PAIN, IBS, GOUT. History of Any Multi-Drug Resistant Organisms: None Reported Past Surgical History: Appendectomy, Hysterectomy, Orthopedic Surgery Additional Past Surgical History / Comment(s): RIGHT KNEE SURGERY,2021 left leg sx, Past Anesthesia/Blood Transfusion Reactions: Postoperative Nausea & Vomiting (PONV) Past Psychological History: No Psychological Hx Reported Additional Psychological History / Comment(s): . Smoking Status: Never smoker Past Alcohol Use History: None Reported Past Drug Use History: None Reported - Past Family History Son(s) Family Medical History: Cancer Medications and Allergies Home Medications Medication Instructions Recorded Confirmed Type Indapamide [Lozol] 2.5 mg PO DAILY 01/04/18 07/10/24 History lisinopriL 40 mg PO DAILY 01/04/18 07/10/24 History Baclofen [Lioresal] 10 mg PO HS 02/11/22 07/10/24 History Pioglitazone [Actos] 15 mg PO HS 02/11/22 07/10/24 History DULoxetine HCL [Cymbalta] 60 mg PO DAILY 07/10/24 07/10/24 History Allergies Allergy/AdvReac Type Severity Reaction Status Date / Time gabapentin [From Neurontin] AdvReac Nausea & Verified 07/10/24 09:24 Vomiting PAIN MEDS AdvReac Nausea & Uncoded 07/10/24 09:24 Vomiting Physical Exam Vitals: Vital Signs Temp Pulse Pulse Resp BP BP Pulse Ox 07/10/24 07:52 98.2 F 95 17 151/84 95 07/10/24 01:17 98.6 F 105 H 17 156/84 98 07/10/24 00:23 107 H 16 96 07/10/24 00:00 110 H 18 151/87 96 07/09/24 21:48 104 H 18 93 L 07/09/24 21:26 101 H 16 165/86 93 L 07/09/24 20:41 97.9 F 106 H 18 165/86 93 L Intake and Output 07/09/24 07/10/24 07/10/24 22:59 06:59 14:59 Output Total 200 Balance -200 Output: Urine 200 Other: Voiding Method External Catheter Weight 86.183 kg 86.183 kg PHYSICAL EXAMINATION: Patient is alert and oriented 3, sitting up in the bed comfortably, no acute distress. HEENT: Normocephalic. Neck is supple. Pupils reactive. MMM Neck: Supple, no JVD. CHEST EXAMINATION: Trachea is central. Symmetrical expansion. Lung karimi clear to auscultation and percussion. Chest wall palpitation tenderness. CARDIAC: Normal S1, S2, Systolic murmur. ABDOMEN: Soft. Bowel sounds normal. No organomegaly. Diffuse mild bilateral lower quadrant tenderness. Extremities: Left lower extremity tenderness, decreased range of motion, left elbow bandage clean dry and intact ,no edema,No clubbing or cyanosis, positive DP pulse Neurological: Cranial nerves II through XII grossly and .Strength and sensation grossly intact. Skin: Warm and dry, No rash. Results CBC & Chem 7: 07/09/24 20:57 07/09/24 20:57 Labs: Abnormal Lab Results - Last 24 Hours (Table) 07/09/24 07/09/24 07/09/24 Range/Units 20:57 20:57 20:57 WBC 15.7 H (3.8-10.6) k/uL Neutrophils # 14.2 H (1.3-7.7) k/uL Lymphocytes # 0.6 L (1.0-4.8) k/uL APTT 18.1 L (22.0-30.0) sec Sodium 136 L (137-145) mmol/L BUN 30 H (7-17) mg/dL Glucose 137 H (74-99) mg/dL Total Protein 6.2 L (6.3-8.2) g/dL Assessment and Plan Assessment: Left proximal femur intertrochanteric fracture status post mechanical fall. Leukocytosis likely reactive Diabetes type 2 [id number] Osteoarthritis PONV, hx of Pulmonary hypertension Hypertension Hyperlipidemia GERD Plan: Continue on current medication regimen ,monitoring and symptomatic treatment. Pain management, DVT prophylaxis as per orthopedic surgery. Aggressive pulmonary toileting with incentive spirometer ordered. Patient is considered moderate risk giving multiple medical issues,'s medically cleared for orthopedic surgery. The impression and plan of care has been dictated as directed. : I performed a history and examination of this patient, discussed the same with the dictator. I agree with the dictator's note ,documented as a scribe. Any a dditional findings or plans will be noted.
[2024-07-10] MEDS: INSULIN ASPART (NovoLOG) 100 UNIT/ML VIAL SQ SCH (12:34)
[2024-07-10 16:46] LABS: Glucose,Whole Blood 143 mg/dL (70-110)
[2024-07-10] MEDS ORDERED: HYDROcodone/APAP 7.5-325MG 1 EACH TAB PO PRN (17:46)
[2024-07-10 21:13] LABS: Glucose,Whole Blood 159 mg/dL (70-110)
[2024-07-11] MEDS: HYDROcodone/APAP 7.5-325MG 1 EACH TAB PO PRN (02:23)
[2024-07-11 06:05] LABS: Glucose,Whole Blood 142 mg/dL (70-110)
[2024-07-11] MEDS: hydroCHLOROthiazide 25 MG TAB PO SCH (08:30)
[2024-07-11] MEDS: DULoxetine HCL 60 MG CAPSULE.DR PO SCH (08:30)
[2024-07-11 11:47] LABS: Glucose,Whole Blood 182 mg/dL (70-110)
[2024-07-11] MEDS: CYANOCOBALAMIN 1,000 MCG/ML 1 ML VIAL IM ONE (12:17)
--- NOTE | 2024-07-11 12:54 | P.HPOR ---
History of Present Illness H&P Date: 07/10/24 Chief Complaint: Pubic Ramii Fracture Patient is a 78-year-old female seen at bedside today in consultation for left hip and buttock pain. She was admitted through the ED status post fall. Patient states she was in the kitchen opening a drawer, fell backwards landing on her left hip. No head injury. She had a minor injury to the left elbow which was bandaged by paramedics. Patient states her pain is better controlled. No chest or abdominal pain. No other complaints. She had am IT fracture [place] [address] Guo Past Medical History Past Medical History: Diabetes Mellitus, GERD/Reflux, Hyperlipidemia, Hypertension, Osteoarthritis (OA) Additional Past Medical History / Comment(s): HX OF KIDNEY STONES, HERNIATED DISCS WITH BACK PAIN, IBS, GOUT. History of Any Multi-Drug Resistant Organisms: None Reported Past Surgical History: Appendectomy, Hysterectomy, Orthopedic Surgery Additional Past Surgical History / Comment(s): RIGHT KNEE SURGERY,2021 left leg sx, Past Anesthesia/Blood Transfusion Reactions: Postoperative Nausea & Vomiting (PONV) Past Psychological History: No Psychological Hx Reported Additional Psychological History / Comment(s): . Smoking Status: Never smoker Past Alcohol Use History: None Reported Past Drug Use History: None Reported - Past Family History Son(s) Family Medical History: Cancer Medications and Allergies Home Medications Medication Instructions Recorded Confirmed Type Indapamide [Lozol] 2.5 mg PO DAILY 01/04/18 07/10/24 History Baclofen [Lioresal] 10 mg PO HS 02/11/22 07/10/24 History Pioglitazone [Actos] 15 mg PO HS 02/11/22 07/10/24 History DULoxetine HCL [Cymbalta] 60 mg PO DAILY 07/10/24 07/10/24 History lisinopriL [Prinivil] 10 mg PO DAILY #30 tab 07/11/24 Rx Allergies Allergy/AdvReac Type Severity Reaction Status Date / Time gabapentin [From Neurontin] AdvReac Nausea & Verified 07/10/24 09:24 Vomiting PAIN MEDS AdvReac Nausea & Uncoded 07/10/24 09:24 Vomiting Physical Examination Inspection of the lower extremities shows no deformity. There are no wounds, erythema or ecchymoses. The knee is nontender without effusion. She has painless range of motion of the knee, ankle foot and toes. Range of motion of the left hip is not tested due to pubic ramii fracture. Neurovascular status is intact throughout the lower extremity with motor and sensation fully intact. Calf is soft and nontender. 2+ dorsalis pedis pulse and less than 2 second cap refill is present. Results nondisplaced pubic ramii fracture. stable hardware left hip - Labs Labs: Abnormal Lab Results - Last 24 Hours (Table) 07/09/24 07/09/24 07/09/24 Range/Units 20:57 20:57 20:57 WBC 15.7 H (3.8-10.6) k/uL Neutrophils # 14.2 H (1.3-7.7) k/uL Lymphocytes # 0.6 L (1.0-4.8) k/uL APTT 18.1 L (22.0-30.0) sec Sodium 136 L (137-145) mmol/L BUN 30 H (7-17) mg/dL Glucose 137 H (74-99) mg/dL POC Glucose (mg/dL) (70-110) mg/dL Total Protein 6.2 L (6.3-8.2) g/dL 07/10/24 07/10/24 Range/Units 12:09 16:45 WBC (3.8-10.6) k/uL Neutrophils # (1.3-7.7) k/uL Lymphocytes # (1.0-4.8) k/uL APTT (22.0-30.0) sec Sodium (137-145) mmol/L BUN (7-17) mg/dL Glucose (74-99) mg/dL POC Glucose (mg/dL) 151 H 143 H (70-110) mg/dL Total Protein (6.3-8.2) g/dL H & H 07/09/24 Range/Units 20:57 Hgb 12.1 (11.4-16.0) gm/dL Hct 38.3 (34.0-46.0) % Coagulation 07/09/24 Range/Units 20:57 INR 1.0 (<1.2) Result Diagrams: 07/09/24 20:57 07/09/24 20:57 - Diagnostic results Hip x-ray: report reviewed, image reviewed Assessment and Plan (1) Fracture of pubic ramus Narrative/Plan: She may be WBAT with walker. Encourage work with PT and oral pain meds for pain control. No surgical intervention planned. Will expect D/C to home in next 1-2 days Current Visit: Yes Status: Acute Code(s): S32.599A - OTH FRACTURE OF UNSP PUBIS, INIT ENCNTR FOR CLOSED FRACTURE SNOMED Code(s): 2206668627 Time with Patient: Less than 30
--- NOTE | 2024-07-11 13:06 | P.PN ---
Subjective Progress Note Date: 07/11/24 Principal diagnosis: Pubic Ramii fracture Patient is seenb at bedside this morning regarding her pubic ramii fracture. Her pain is improved today. She was up with PT. She denies new complaints. Objective - Vital Signs Vital signs: Vital Signs Temp 98.0 F 07/11/24 07:46 Pulse 92 07/11/24 07:46 Resp 16 07/11/24 07:46 BP 137/74 07/11/24 07:46 Pulse Ox 95 07/11/24 07:46 FiO2 Intake & Output 07/10/24 07/11/24 07/11/24 18:59 06:59 18:59 Output Total 600 Balance -600 Output: Urine 600 Other: Voiding Method External Catheter External Catheter External Catheter - Exam There are no wounds, erythema or ecchymoses. The knee is nontender without effusion. She has painless range of motion of the knee, ankle foot and toes. Range of motion of the left hip is not tested due to fracture. Neurovascular status is intact throughout the lower extremity with motor and sensation fully intact. Calf is soft and nontender. 2+ dorsalis pedis pulse and less than 2 second cap refill is present. - Constitutional General appearance: Present: no acute distress - Labs CBC & Chem 7: 07/09/24 20:57 07/09/24 20:57 Labs: Abnormal Lab Results - Last 24 Hours (Table) 07/10/24 07/10/24 07/11/24 Range/Units 16:45 21:11 04:57 POC Glucose (mg/dL) 143 H 159 H (70-110) mg/dL Vitamin B12 973.0 H (200.0-944.0) pg/mL 07/11/24 07/11/24 Range/Units 06:03 11:45 POC Glucose (mg/dL) 142 H 182 H (70-110) mg/dL Vitamin B12 (200.0-944.0) pg/mL Assessment and Plan (1) Fracture of pubic ramus Narrative/Plan: Continue WBAT with walker. Encourage work with PT and oral pain meds for pain control. No surgical intervention planned. Will expect D/C to home in next 1-2 days Current Visit: Yes Status: Acute Code(s): S32.599A - OTH FRACTURE OF UNSP PU BIS, INIT ENCNTR FOR CLOSED FRACTURE SNOMED Code(s): 7355460891 Time with Patient: Less than 30
--- NOTE | 2024-07-11 13:12 | P.PN ---
Subjective Progress Note Date: 07/11/24 07/10/2024 - History of Present Illness This is a 78-year-old female with past medical history significant for hypertension, hyperlipidemia, GERD, osteoarthritis presenting to the ER status post fall, sustaining pubic ramus fracture as reported per pelvis CT. Patient stated she was throwing something away in the garbage can, had opened a drawer, lost her balance fell backwards landing on her left left hip, braced her fall with her left elbow. Denied head trauma. Denies lightheadedness, dizziness or focal deficits. Denies headache. chest x-ray reported no acute pulmonary pr ocess. Denies chest pain, palpitations or shortness of breath. mild tachycardia, maintaining O2 sats in the mid to high 90s on 2 L nasal cannula. Afebrile, WBC 15.7, hemoglobin 12.1, platelets 226, INR 1, electrolytes within normal limits, bicarb 24 BUN 30 creatinine 0.91. Glucose 137. 07/11/2024 evaluated by orthopedic surgery with no surgical intervention planned. Reports this is her first time up ,in a chair. Had mild nausea with getting up with increased pain upon weightbearing with walker. denies lightheadedness, dizziness or focal deficits. Denies chest pain, palpitations or shortness of breath. Denies bowel movement, denies passing flatus. Tmax 99.8. Hemoglobin A1c 5.7. Blood pressures on the softer side, ranging from 1 teens to the low 130s, YENY inhibitor held. Objective - Vital Signs Vital signs: Vital Signs Temp 98.0 F 07/11/24 07:46 Pulse 92 07/11/24 07:46 Resp 16 07/11/24 07:46 BP 137/74 07/11/24 07:46 Pulse Ox 95 07/11/24 07:46 FiO2 Intake & Output 07/10/24 07/11/24 07/11/24 18:59 06:59 18:59 Output Total 600 Balance -600 Output: Urine 600 Other: Voiding Method External Catheter External Catheter External Catheter - Exam PHYSICAL EXAMINATION: Patient is alert and oriented 3, sitting up in chair, no acute distress. HEENT: Normocephalic. Neck is supple. Pupils reactive. MMM Neck: Supple, no JVD. CHEST EXAMINATION: Trachea is central. Symmetrical expansion. Lung karimi clear to auscultation and percussion. CARDIAC: Normal S1, S2, Systolic murmur. ABDOMEN: Soft. Bowel sounds normal. No organomegaly. Diffuse mild bilateral lower quadrant tenderness. Extremities: Left lower extremity tenderness, decreased range of motion, left elbow bandage clean dry and intact ,no edema,No clubbing or cyanosis, positive DP pulse Neurological: Cranial nerves II through XII grossly and .Strength and sensation grossly intact. Skin: Warm and dry, No rash. - Labs CBC & Chem 7: 07/09/24 20:57 07/09/24 20:57 Labs: Abnormal Lab Results - Last 24 Hours (Table) 07/10/24 07/10/24 07/11/24 Range/Units 16:45 21:11 04:57 POC Glucose (mg/dL) 143 H 159 H (70-110) mg/dL Vitamin B12 973.0 H (200.0-944.0) pg/mL 07/11/24 07/11/24 Range/Units 06:03 11:45 POC Glucose (mg/dL) 142 H 182 H (70-110) mg/dL Vitamin B12 (200.0-944.0) pg/mL Assessment and Plan Assessment: Left proximal femur intertrochanteric fracture status post mechanical fall. No surgical intervention as per orthopedic surgery evaluation. Leukocytosis likely reactive Diabetes type 2 [id number] Osteoarthritis PONV, hx of Pulmonary hypertension Hypertension Hyperlipidemia GERD Plan: Continue on current medication regimen ,monitoring and symptomatic treatment. Maintain aggressive pulmonary toileting with incentive spirometer reinforced. No surgical intervention, as per orthopedic surgery. Discharge planning in progress tentatively for tomorrow pending orthopedic clearance. On discharge YENY inhibitor dose will be decreased and reevaluated further outpatient in clinic-discussed with daughter at bedside. The impression and plan of care has been dictated as directed. : I performed a history and examination of this patient, discussed the same with the dictator. I agree with the dictator's note ,documented as a scribe. Any additional findings or plans will be noted.
[2024-07-11 16:40] LABS: Glucose,Whole Blood 153 mg/dL (70-110)
[2024-07-11 21:42] LABS: Glucose,Whole Blood 139 mg/dL (70-110)
[2024-07-12 06:38] LABS: Glucose,Whole Blood 129 mg/dL (70-110)
[2024-07-12 11:28] LABS: Glucose,Whole Blood 130 mg/dL (70-110)
--- NOTE | 2024-07-12 12:39 | P.PN ---
Subjective Principal diagnosis: Pubic Ramii fracture Patient is seen at bedside this morning regarding her pubic ramii fracture. Her pain is stable today. She was up with PT yesterday but not today yet. She denies new complaints. Objective - Vital Signs Vital signs: Vital Signs Temp 98.2 F 07/12/24 07:14 Pulse 95 07/12/24 07:14 Resp 16 07/12/24 07:14 BP 125/81 07/12/24 07:14 Pulse Ox 98 07/12/24 07:14 FiO2 Intake & Output 07/11/24 07/12/24 07/12/24 18:59 06:59 18:59 Output Total 1200 1600 Balance -1200 -1600 Output: Urine 1200 1600 Other: Voiding Method External Catheter External Catheter External Catheter - Exam There are no wounds, erythema or ecchymoses. The knee is nontender without effusion. She has painless range of motion of the knee, ankle foot and toes. Range of motion of the left hip is not tested due to fracture. Neurovascular status is intact throughout the lower extremity with motor and sensation fully intact. Calf is soft and nontender. 2+ dorsalis pedis pulse and less than 2 second cap refill is present. - Constitutional General appearance: Present: no acute distress - Labs CBC & Chem 7: 07/09/24 20:57 07/09/24 20:57 Labs: Abnormal Lab Results - Last 24 Hours (Table) 07/11/24 07/11/24 07/12/24 Range/Units 16:39 21:29 06:36 POC Glucose (mg/dL) 153 H 139 H 129 H (70-110) mg/dL 07/12/24 Range/Units 11:27 POC Glucose (mg/dL) 130 H (70-110) mg/dL Assessment and Plan (1) Fracture of pubic ramus Narrative/Plan: Continue WBAT with walker. Encourage work with PT and oral pain meds for pain control. No surgical intervention planned. Will expect D/C to home in next 1-2 days Current Visit: Yes Status: Acute Priority: Medium Code(s): S32.599A - OTH FRACTURE OF UNSP PUBIS, INIT ENCNTR FOR CLOSED FRACTURE SNOMED Code(s): 8142598208 Time with Patient: Less than 30
--- NOTE | 2024-07-12 12:59 | P.PN ---
Subjective Progress Note Date: 07/12/24 This is a 78-year-old female with past medical history significant for hypertension, hyperlipidemia, GERD, osteoarthritis presenting to the ER status post fall, sustaining pubic ramus fracture as reported per pelvis CT. Patient stated she was throwing something away in the garbage can, had opened a drawer, lost her balance fell backwards landing on her left left hip, braced her fall with her left elbow. Denied head trauma. Denies lightheadedness, dizziness or focal deficits. Denies headache. chest x-ray reported no acute pulmonary process. Denies chest pain, palpitations or shortness of breath. mild tachycardia, maintaining O2 sats in the mid to high 90s on 2 L nasal cannula. Afebrile, WBC 15.7, hemoglobin 12.1, platelets 226, INR 1, electrolytes within normal limits, bicarb 24 BUN 30 creatinine 0.91. Glucose 137. 07/11/2024 evaluated by orthopedic surgery with no surgical intervention planned. Reports this is her first time up ,in a chair. Had mild nausea with getting up with increased pain upon weightbearing with walker. denies lightheadedness, dizziness or focal deficits. Denies chest pain, palpitations or shortness of breath. Denies bowel movement, denies passing flatus. Tmax 99.8. Hemoglobin A1c 5.7. Blood pressures on the softer side, ranging from 1 teens to the low 130s, YENY inhibitor held. 07/12. Dr. Trivedi took over care. Still complain of lethargy and weakness. Patient keen to work with PT and OT. States pain is under control REVIEW OF SYSTEMS: CONSTITUTIONAL: No fever, no malaise,. CARDIOVASCULAR: No chest pain, no palpitations, no syncope. PULMONARY: No shortness of breath, no cough, GASTROINTESTINAL: No diarrhea, no nausea, no vomiting, no abdominal pain. NEUROLOGICAL: No headaches, no weakness, PHYSICAL EXAMINATION: GENERAL: The patient is alert and oriented x3, not in any acute distress. Well developed, well nourished. HEENT: Pupils are round and equally reacting to light. EOMI. No scleral icterus. No conjunctival pallor. Normocephalic, atraumatic. No pharyngeal erythema. No thyromegaly. CARDIOVASCULAR: S1 and S2 present. No murmurs, rubs, or gallops. PULMONARY: Chest is clear to auscultation, no wheezing or crackles. ABDOMEN: Soft, nontender, nondistended, normoactive bowel sounds. No palpable organomegaly. MUSCULOSKELETAL: No joint swelling or deformity. EXTREMITIES: No cyanosis, clubbing, or pedal edema. NEUROLOGICAL: Gross neurological examination did not reveal any focal deficits. SKIN: No rashes. Assessment and plan Left proximal femur intertrochanteric fracture status post mechanical fall. No surgical intervention as per orthopedic surgery evaluation. Leukocytosis likely reactive Diabetes type 2 [id number] Osteoarthritis PONV, hx of Pulmonary hypertension Hypertension Hyperlipidemia GERD Monitor vital signs Monitor CBC Monitor CMP Continue pain management per orthopedics Continue DVT prophylaxis per orthopedics Resume home meds PT and OT consulted Labs and medication were reviewed.. Continue same treatment. Continue with symptomatic treatment. Resume home medication. Monitor labs and vitals. DVT and GI prophylaxis. Further recommendations as per clinical course of the patient Dictation was produced using [employer] dictation software. please excuse any grammatical, word or spelling errors. . Objective - Vital Signs Vital signs: Vital Signs Temp 98.2 F 07/12/24 07:14 Pulse 95 07/12/24 07:14 Resp 16 07/12/24 07:14 BP 125/81 07/12/24 07:14 Pulse Ox 98 07/12/24 07:14 FiO2 Intake & Output 07/11/24 07/12/24 07/12/24 18:59 06:59 18:59 Output Total 1200 1600 Balance -1200 -1600 Output: Urine 1200 1600 Other: Voiding Method External Catheter External Catheter - Labs CBC & Chem 7: 07/09/24 20:57 07/09/24 20:57 Labs: Abnormal Lab Results - Last 24 Hours (Table) 07/11/24 07/11/24 07/11/24 Range/Units 11:45 16:39 21:29 POC Glucose (mg/dL) 182 H 153 H 139 H (70-110) mg/dL 07/12/24 Range/Units 06:36 POC Glucose (mg/dL) 129 H (70-110) mg/dL
[2024-07-12 16:51] LABS: Glucose,Whole Blood 157 mg/dL (70-110)
[2024-07-12 21:12] LABS: Glucose,Whole Blood 146 mg/dL (70-110)
[2024-07-13 05:46] LABS: Glucose,Whole Blood 121 mg/dL (70-110)
--- NOTE | 2024-07-13 07:56 | P.PN ---
Subjective Progress Note Date: 07/13/24 Principal diagnosis: Left nondisplaced Pubic Rami fracture Patient is seen at bedside this morning regarding her left pubic rami fracture. Her pain is mild and stable today. She was up with PT yesterday but not today yet. She denies any new complaints. She lives with her daughter. She would like to be discharged home when medically cleared. Objective - Vital Signs Vital signs: Vital Signs Temp 98.3 F 07/13/24 02:00 Pulse 103 H 07/13/24 02:00 Resp 17 07/12/24 13:13 BP 147/76 07/13/24 02:00 Pulse Ox 99 07/13/24 02:00 FiO2 Intake & Output 07/12/24 07/13/24 07/13/24 18:59 06:59 18:59 Output Total 300 800 Balance -300 -800 Output: Urine 300 800 Other: Voiding Method External Catheter External Catheter - Exam There are no wounds, erythema or ecchymoses over the left anterior hip. The knee is nontender without effusion. She has painless range of motion of the knee, ankle foot and toes. Range of motion of the left hip is not tested due to fracture. Neurovascular status is intact throughout the lower extremity with motor and sensation fully intact. Calf is soft and nontender. 2+ dorsalis ped is pulse. - Labs CBC & Chem 7: 07/09/24 20:57 07/09/24 20:57 Labs: Abnormal Lab Results - Last 24 Hours (Table) 07/12/24 07/12/24 07/12/24 Range/Units 11:27 16:49 21:10 POC Glucose (mg/dL) 130 H 157 H 146 H (70-110) mg/dL 07/13/24 Range/Units 05:44 POC Glucose (mg/dL) 121 H (70-110) mg/dL Assessment and Plan Assessment: Left nondisplaced Pubic Rami fracture Plan: Continue WBAT with walker. Encourage work with PT and oral pain meds for pain control. No surgical intervention planned. Will expect D/C to home with daughter today or tomorrow. Follow up with Dr. Whitlock at outpatient clinic.
[2024-07-13 11:46] LABS: Glucose,Whole Blood 132 mg/dL (70-110)
--- NOTE | 2024-07-13 13:53 | P.PN ---
Subjective Progress Note Date: 07/13/24 This is a 78-year-old female with past medical history significant for hypertension, hyperlipidemia, GERD, osteoarthritis presenting to the ER status post fall, sustaining pubic ramus fracture as reported per pelvis CT. Patient stated she was throwing something away in the garbage can, had opened a drawer, lost her balance fell backwards landing on her left left hip, braced her fall with her left elbow. Denied head trauma. Denies lightheadedness, dizziness or focal deficits. Denies headache. chest x-ray reported no acute pulmonary process. Denies chest pain, palpitations or shortness of breath. mild tachycardia, maintaining O2 sats in the mid to high 90s on 2 L nasal cannula. Afebrile, WBC 15.7, hemoglobin 12.1, platelets 226, INR 1, electrolytes within normal limits, bicarb 24 BUN 30 creatinine 0.91. Glucose 137. 07/11/2024 evaluated by orthopedic surgery with no surgical intervention planned. Reports this is her first time up ,in a chair. Had mild nausea with getting up with increased pain upon weightbearing with walker. denies lightheadedness, dizziness or focal deficits. Denies chest pain, palpitations or shortness of breath. Denies bowel movement, denies passing flatus. Tmax 99.8. Hemoglobin A1c 5.7. Blood pressures on the softer side, ranging from 1 teens to the low 130s, YENY inhibitor held. 07/12. Dr. Trivedi took over care. Still complain of lethargy and weakness. Patient keen to work with PT and OT. States pain is under control 07/13. Patient seen and examined. Continues to complain of difficulty in ambulation because of pain. REVIEW OF SYSTEMS: CONSTITUTIONAL: No fever, no malaise,. CARDIOVASCULAR: No chest pain, no palpitations, no syncope. PULMONARY: No shortness of breath, no cough, GASTROINTESTINAL: No diarrhea, no nausea, no vomiting, no abdominal pain. NEUROLOGICAL: No headaches, no weakness, PHYSICAL EXAMINATION: GENERAL: The patient is alert and oriented x3, not in any acute distress. Well developed, well nourished. HEENT: Pupils are round and equally reacting to light. EOMI. No scleral icterus. No conjunctival pallor. Normocephalic, atraumatic. No pharyngeal erythema. No thyromegaly. CARDIOVASCULAR: S1 and S2 present. No murmurs, rubs, or gallops. PULMONARY: Chest is clear to auscultation, no wheezing or crackles. ABDOMEN: Soft, nontender, nondistended, normoactive bowel sounds. No palpable organomegaly. MUSCULOSKELETAL: No joint swelling or deformity. EXTREMITIES: No cyanosis, clubbing, or pedal edema. NEUROLOGICAL: Gross neurological examination did not reveal any focal deficits. SKIN: No rashes. Assessment and plan Left proximal femur intertrochanteric fracture status post mechanical fall. No surgical intervention as per orthopedic surgery evaluation. Leukocytosis likely reactive Diabetes type 2 [id number] Osteoarthritis PONV, hx of Pulmonary hypertension Hypertension Hyperlipidemia GERD Monitor vital signs Monitor CBC Monitor CMP Continue pain management per orthopedics Continue DVT prophylaxis per orthopedics Monitor blood sugar levels, continue sliding scale insulin PT and OT recommend home care Labs and medication were reviewed.. Continue same treatment. Continue with symptomatic treatment. Resume home medication. Monitor labs and vitals. DVT and GI prophylaxis. Further recommendations as per clinical course of the patient Dictation was produced using [employer] dictation software. please excuse any grammatical, word or spelling errors. . Objective - Vital Signs Vital signs: Vital Signs Temp 98.3 F 07/13/24 12:25 Pulse 94 07/13/24 12:25 Resp 16 07/13/24 12:25 BP 126/84 07/13/24 12:25 Pulse Ox 96 07/13/24 12:25 FiO2 Intake & Output 07/12/24 07/13/24 07/13/24 18:59 06:59 18:59 Output Total 300 800 Balance -300 -800 Output: Urine 300 800 Other: Voiding Method External Catheter External Catheter External Catheter - Labs CBC & Chem 7: 07/09/24 20:57 07/09/24 20:57 Labs: Abnormal Lab Results - Last 24 Hours (Table) 07/12/24 07/12/24 07/13/24 Range/Units 16:49 21:10 05:44 POC Glucose (mg/dL) 157 H 146 H 121 H (70-110) mg/dL 07/13/24 Range/Units 11:45 POC Glucose (mg/dL) 132 H (70-110) mg/dL
[2024-07-13 16:53] LABS: Glucose,Whole Blood 124 mg/dL (70-110)
[2024-07-13] MEDS: PIOGLITAZONE 15 MG TAB PO SCH (21:06)
[2024-07-13 21:08] LABS: Glucose,Whole Blood 125 mg/dL (70-110)
[2024-07-14 05:51] LABS: Glucose,Whole Blood 120 mg/dL (70-110)
[2024-07-14] MEDS: DULoxetine HCL 60 MG CAPSULE.DR PO SCH (08:12)
--- NOTE | 2024-07-14 08:57 | P.PN ---
Subjective Progress Note Date: 07/14/24 Principal diagnosis: Left nondisplaced Pubic Rami fracture Patient is seen at bedside this morning regarding her left pubic rami fracture. Her pain is mild and stable today. She had PT initially. I spoke with nursing staff and recommended having PT work with her again today. Daughter request patient have pain medication before PT. She denies any new complaints. She lives with her daughter. She would like to be discharged home when medically cleared. Objective - Vital Signs Vital signs: Vital Signs Temp 99.3 F 07/14/24 07:14 Pulse 95 07/14/24 07:14 Resp 14 07/14/24 07:14 BP 149/84 07/14/24 07:14 Pulse Ox 97 07/14/24 07:14 FiO2 Intake & Output 07/13/24 07/14/24 07/14/24 18:59 06:59 18:59 Output Total 500 Balance -500 Output: Urine 500 Other: Voiding Method External Catheter Bedside Commode - Exam Patient was evaluated at bedside this morning. Patient was resting in chair. Patient was in no acute distress. Patient was awake alert and able to answer questions. There are no wounds, erythema or ecchymoses over the left anterior hip. The knee is nontender without effusion. She has painless range of motion of the knee, ankle foot and toes. Range of motion of the left hip is not tested due to fracture. Neurovascular status is intact throughout the lower extremity with motor and sensation grossly intact. Calf is soft and nontender. 2+ dorsalis pedis pulse. - Labs CBC & Chem 7: 07/09/24 20:57 07/09/24 20:57 Labs: Abnormal Lab Results - Last 24 Hours (Table) 07/13/24 07/13/24 07/13/24 Range/Units 11:45 16:52 21:06 POC Glucose (mg/dL) 132 H 124 H 125 H (70-110) mg/dL 07/14/24 Range/Units 05:49 POC Glucose (mg/dL) 120 H (70-110) mg/dL Assessment and Plan Assessment: Left nondisplaced Pubic Rami fracture Plan: No surgical intervention planned. Continue WBAT with walker. Encourage work with PT and oral pain meds for pain control. Pending how she does with PT, patient may be discharged home with daughter in the next 24 to 48 hours. Follow up with Dr. Whitlock at outpatient clinic.
[2024-07-14] MEDS: hydroCHLOROthiazide 25 MG TAB PO SCH (09:50)
[2024-07-14] MEDS: DOCUSATE 100 MG CAP PO STA (09:50)
[2024-07-14 11:34] LABS: Glucose,Whole Blood 120 mg/dL (70-110)
--- NOTE | 2024-07-14 14:09 | P.PN ---
Subjective Progress Note Date: 07/14/24 This is a 78-year-old female with past medical history significant for hypertension, hyperlipidemia, GERD, osteoarthritis presenting to the ER status post fall, sustaining pubic ramus fracture as reported per pelvis CT. Patient stated she was throwing something away in the garbage can, had opened a drawer, lost her balance fell backwards landing on her left left hip, braced her fall with her left elbow. Denied head trauma. Denies lightheadedness, dizziness or focal deficits. Denies headache. chest x-ray reported no acute pulmonary process. Denies chest pain, palpitations or shortness of breath. mild tachycardia, maintaining O2 sats in the mid to high 90s on 2 L nasal cannula. Afebrile, WBC 15.7, hemoglobin 12.1, platelets 226, INR 1, electrolytes within normal limits, bicarb 24 BUN 30 creatinine 0.91. Glucose 137. 07/11/2024 evaluated by orthopedic surgery with no surgical intervention planned. Reports this is her first time up ,in a chair. Had mild nausea with getting up with increased pain upon weightbearing with walker. denies lightheadedness, dizziness or focal deficits. Denies chest pain, palpitations or shortness of breath. Denies bowel movement, denies passing flatus. Tmax 99.8. Hemoglobin A1c 5.7. Blood pressures on the softer side, ranging from 1 teens to the low 130s, YENY inhibitor held. 07/12. Dr. Trivedi took over care. Still complain of lethargy and weakness. Patient keen to work with PT and OT. States pain is under control 07/13. Patient seen and examined. Continues to complain of difficulty in ambulation because of pain. 07/14. Patient seen and examined. Denies any lethargy or weakness. Still has issues with her pain control on ambulation. Currently waiting on repeat PT and OT evaluation REVIEW OF SYSTEMS: CONSTITUTIONAL: No fever, no malaise,. CARDIOVASCULAR: No chest pain, no palpitations, no syncope. PULMONARY: No shortness of breath, no cough, GASTROINTESTINAL: No diarrhea, no nausea, no vomiting, no abdominal pain. NEUROLOGICAL: No headaches, no weakness, PHYSICAL EXAMINATION: GENERAL: The patient is alert and oriented x3, not in any acute distress. Well developed, well nourished. HEENT: Pupils are round and equally reacting to light. EOMI. No scleral icterus. No conjunctival pallor. Normocephalic, atraumatic. No pharyngeal erythema. No thyromegaly. CARDIOVASCULAR: S1 and S2 present. No murmurs, rubs, or gallops. PULMONARY: Chest is clear to auscultation, no wheezing or crackles. ABDOMEN: Soft, nontender, nondistended, normoactive bowel sounds. No palpable organomegaly. MUSCULOSKELETAL: No joint swelling or deformity. EXTREMITIES: No cyanosis, clubbing, or pedal edema. NEUROLOGICAL: Gross neurological examination did not reveal any focal deficits. SKIN: No rashes. Assessment and plan Left proximal femur intertrochanteric fracture status post mechanical fall. No surgical intervention as per orthopedic surgery evaluation. Leukocytosis likely reactive Diabetes type 2 [id number]-vcdjhhego Osteoarthritis PONV, hx of Pulmonary hypertension Hypertension Hyperlipidemia GERD Monitor vital signs Monitor CBC Monitor CMP Continue pain management per orthopedics Continue DVT prophylaxis per orthopedics Monitor blood sugar levels, continue sliding scale insulin PT and OT recommend home care Labs and medication were reviewed.. Continue same treatment. Continue with symptomatic treatment. Resume home medication. Monitor labs and vitals. DVT and GI prophylaxis. Further recommendations as per clinical course of the patient Dictation was produced using [employer] dictation software. please excuse any grammatical, word or spelling errors. . Objective - Vital Signs Vital signs: Vital Signs Temp 98.3 F 07/14/24 12:50 Pulse 99 07/14/24 12:50 Resp 16 07/14/24 12:50 BP 129/79 07/14/24 12:50 Pulse Ox 94 L 07/14/24 12:50 FiO2 Intake & Output 07/13/24 07/14/24 07/14/24 18:59 06:59 18:59 Output Total 500 Balance -500 Output: Urine 500 Other: Voiding Method External Catheter Bedside Commode Bedside Commode # Voids 1 # Bowel Movements 1 - Labs CBC & Chem 7: 07/09/24 20:57 07/09/24 20:57 Labs: Abnormal Lab Results - Last 24 Hours (Table) 07/13/24 07/13/24 07/14/24 Range/Units 16:52 21:06 05:49 POC Glucose (mg/dL) 124 H 125 H 120 H (70-110) mg/dL 07/14/24 Range/Units 11:33 POC Glucose (mg/dL) 120 H (70-110) mg/dL
[2024-07-14 16:41] LABS: Glucose,Whole Blood 175 mg/dL (70-110)
[2024-07-14 20:45] LABS: Glucose,Whole Blood 125 mg/dL (70-110)
[2024-07-15 06:01] LABS: Glucose,Whole Blood 117 mg/dL (70-110)
[2024-07-15 07:59] VITALS: RESP 17
[2024-07-15] MEDS: DOCUSATE 100 MG CAP PO SCH (08:45)
--- NOTE | 2024-07-15 10:36 | P.PN ---
Subjective Progress Note Date: 07/15/24 07/10/2024 - History of Present Illness This is a 78-year-old female with past medical history significant for hypertension, hyperlipidemia, GERD, osteoarthritis presenting to the ER status post fall, sustaining pubic ramus fracture as reported per pelvis CT. Patient stated she was throwing something away in the garbage can, had opened a drawer, lost her balance fell backwards landing on her left left hip, braced her fall with her left elbow. Denied head trauma. Denies lightheadedness, dizziness or focal deficits. Denies headache. chest x-ray reported no acute pulmonary pr ocess. Denies chest pain, palpitations or shortness of breath. mild tachycardia, maintaining O2 sats in the mid to high 90s on 2 L nasal cannula. Afebrile, WBC 15.7, hemoglobin 12.1, platelets 226, INR 1, electrolytes within normal limits, bicarb 24 BUN 30 creatinine 0.91. Glucose 137. 07/11/2024 evaluated by orthopedic surgery with no surgical intervention planned. Reports this is her first time up ,in a chair. Had mild nausea with getting up with increased pain upon weightbearing with walker. denies lightheadedness, dizziness or focal deficits. Denies chest pain, palpitations or shortness of breath. Denies bowel movement, denies passing flatus. Tmax 99.8. Hemoglobin A1c 5.7. Blood pressures on the softer side, ranging from 1 teens to the low 130s, YENY inhibitor held. 07/15/23 pain controlled on current management per orthopedic surgery. Blood sugars controlled. Hemoglobin A1c 5.7. Complains of constipation, will order MiraLAX. Denies chest pain, palpitations or shortness of breath. RN reports patient is maintaining O2 sats of 97% on room air. Afebrile. Evaluated by PT recommending home, home care, subacute rehab with 15/05 care. Patient and family declining rehab. Objective - Vital Signs Vital signs: Vital Signs Temp 98.1 F 07/15/24 07:10 Pulse 96 07/15/24 07:10 Resp 17 07/15/24 07:10 BP 158/80 07/15/24 07:10 Pulse Ox 97 07/15/24 07:10 FiO2 Intake & Output 07/14/24 07/15/24 07/15/24 18:59 06:59 18:59 Other: Voiding Method Bedside Commode Bedside Commode Bedside Commode # Voids 1 2 # Bowel Movements 1 - Exam PHYSICAL EXAMINATION: Patient is alert and oriented 3, sitting up in chair, no acute distress. HEENT: Normocephalic. Neck is supple. Pupils reactive. MMM Neck: Supple, no JVD. CHEST EXAMINATION: Unlabored, equal air entry lung, clear to auscultation. CARDIAC: Normal S1, S2, Systolic murmur. ABDOMEN: Soft. Nondistended, nontender, positive bowel sounds bowel sounds. Extremities: Left lower extremity tenderness,left elbow bandage clean dry and intact ,no pedal edema,No clubbing or cyanosis, positive DP pulse Neurological: Cranial nerves II through XII grossly and .Strength and sensation grossly intact. Skin: Warm and dry, No rash. - Labs CBC & Chem 7: 07/09/24 20:57 07/09/24 20:57 Labs: Abnormal Lab Results - Last 24 Hours (Table) 07/14/24 07/14/24 07/14/24 Range/Units 11:33 16:40 20:44 POC Glucose (mg/dL) 120 H 175 H 125 H (70-110) mg/dL 07/15/24 Range/Units 06:00 POC Glucose (mg/dL) 117 H (70-110) mg/dL Assessment and Plan Assessment: Left proximal femur intertrochanteric fracture status post mechanical fall. No surgical intervention as per orthopedic surgery evaluation. Postoperative atelectasis Acute hypoxic respiratory failure secondary to the above Leukocytosis likely reactive Diabetes type 2 [id number], hemoglobin A1c 5.7 Osteoarthritis PONV, hx of Pulmonary hypertension Hypertension Hyperlipidemia GERD Plan: Continue on current medication regimen ,monitoring and symptomatic treatment. Discharge planning in progress as per orthopedic surgery. Pain management and DVT prophylaxis as per orthopedic surgery. Patient and family declining rehab. Patient has been advised to continue aggressive pulmonary toileting with incentive spirometer reinforced. No surgical intervention, as per orthopedic surgery. On discharge YENY inhibitor dose will be decreased and reevaluated further outpatient in clinic. Follow-up with PCP in 1 week. The impression and plan of care has been dictated as directed. : I performed a history and examination of this patient, discussed the same with the dictator. I agree with the dictator's note ,documented as a scribe. Any additional findings or plans will be noted.
[2024-07-15 11:21] LABS: Glucose,Whole Blood 164 mg/dL (70-110)
[2024-07-15] MEDS: polyethylene glycoL 3350 17 GM POWD.PACK PO SCH (11:35)
[2024-07-15 13:11] VITALS: BP 140/79; TEMP 98
[2024-07-15 13:30] VITALS: PULSE 110
[2024-07-15] MEDS: ONDANSETRON 4 MG TAB PO PRN (16:50)
--- NOTE | 2024-08-05 14:01 | CDI ---
Documentation Clarification Form Date: 08/05/2024 01:57:15 PM From: Raeann Ramirez RN, CCDS Phone: [phone] Admit Date: 07/09/2024 10:33:00 PM Patient Name: Libby Westbrook Visit Number: [id number] Discharge Date: 07/15/2024 05:37:00 PM ATTENTION: The Clinical Documentation Specialists (CDI) and [facility] Coding Staff appreciate your assistance in clarifying documentation. Please respond to the clarification below the line at the bottom and electronically sign. The CDI & [facility] Coding staff will review the response and follow-up if needed. Please note: Queries are made part of the Legal Health Record. If you have any questions, please contact the author of this message via ITS. Doctor/Provider: Tab Ang 07/15/24 acute hypoxic respiratory failure secondary to postoperative atelectasis is documented in the progress notes which may lack sufficient clinical evidence/support in the medical record. Additional clarification is requested. History/Risk Factors: Diabetes Mellitus, GERD/Reflux, Hyperlipidemia, Hypertension, Osteoarthritis Clinical Indicators: 78-year-old female presenting to the ER status post fall, sustaining pubic ramus fracture as reported per pelvis CT. 07/09 CXR: No acute pulmonary process. 07/15 IM progress note: Denies headache. Chest x-ray reported no acute pulmonary process. Denies chest pain, palpitations or shortness of breath. mild tachycardia, maintaining O2 Sats in the mid to high 90s on 2 L nasal cannula. Afebrile, 07/15 VS: 140/79 94 98.0 100 % 2/L NC; Pulse 101 rest, Pulse 110 with exercise, Pulse 112 at rest, Pulse 120 w/Exercise O2 Sat 94% 2/L w./Exercise, 95% at rest, O2 Sat 85% w/Exercise Treatment: Aggressive pulmonary [id number] with Incentive spirometer per orders Monitor labs and vitals Please clarify postoperative atelectasis with acute hypoxic respiratory failure is a valid diagnosis? [ ] No, Postoperative atelectasis ruled out, Acute hypoxic respiratory failure is ruled in (specify) [ X] Yes, both postoperative atelectasis is ruled in-expected, and acute hypoxic respiratory failure ruled in. (specify [ } No, Postoperative atelectasis and Acute hypoxic respiratory failure has been ruled out [ ] Other (please specify diagnosis) [ ] Unable to determine (Template Last Revised: March 2024) MTDD
== END 2024-07-15 17:37 | disposition home health service (06) | DRG 963 ==
LOC: EC 20:38 → 4SSUR 22:33
PROVIDERS: ADMIT Orthopaedic Surgery Sports Medicine; ATTEND Orthopaedic Surgery Sports Medicine
DX: S72.142A Displaced intertrochanteric fracture of left femur, initial encounter for closed fracture (principal); J96.01 Acute respiratory failure with hypoxia; S32.592A Other specified fracture of left pubis, initial encounter for closed fracture; J98.11 Atelectasis; I27.20 Pulmonary hypertension, unspecified; E11.9 Type 2 diabetes mellitus without complications; I10 Essential (primary) hypertension; S59.902A Unspecified injury of left elbow, initial encounter; E78.5 Hyperlipidemia, unspecified; K21.9 Gastro-esophageal reflux disease without esophagitis; W01.0XXA Fall on same level from slipping, tripping and stumbling without subsequent striking against object, initial encounter; K59.00 Constipation, unspecified; M19.90 Unspecified osteoarthritis, unspecified site; Z79.84 Long term (current) use of oral hypoglycemic drugs; Z79.899 Other long term (current) drug therapy; Z90.710 Acquired absence of both cervix and uterus; Y92.000 Kitchen of unspecified non-institutional (private) residence as the place of occurrence of the external cause; Y99.8 Other external cause status
CPT/HCPCS: 36415; 71045; 72192; 80053; 82607; 83036; 85025; 85610; 85730; 93005; 96374; 99285

== ENCOUNTER → 2025-05-21 | Outpatient (CLI) | payer MEDICARE, OTHER ==
--- NOTE | 2025-05-21 16:28 | MM ---
Reason for Exam: Screening (asymptomatic). Last mammogram was performed 1 year(s) and 6 month(s) ago. Patient History: Menarche at age 15. First Full-Term at age 20. Hysterectomy at age 43. Postmenopausal. Estrogen for 2 years from age 49 until age 51. Progesterone for 2 years from age 49 until age 51. Benign Excisional Biopsy on the right side. Risk Values: Agustina 5 year model risk: 1.3%. NCI Lifetime model risk: 2.4%. Prior Study Comparison: 06/03/2021 Bilateral Screening Mammogram, [facility]. 07/22/2022 Bilateral MG 3D screening mammo w/cad, [facility]. 10/26/2023 Bilateral MG 3D screening mammo w/cad, [facility]. Tissue Density: The breasts are almost entirely fatty. Findings: Analyzed By CAD. There is no suspicious group of microcalcifications or new suspicious mass in either breast. Overall Assessment: Negative, BI-RAD 1 Management: Screening Mammogram of both breasts in 1 year. Patient should continue monthly self-breast exams. A clinical breast exam by your physician is recommended on an annual basis. This exam should not preclude additional follow-up of suspicious palpable abnormalities. Note on Agustina scores and lifetime risk: 1. A Agustina score greater than 3% is considered moderate risk. If this is the case, consider specialist referral to assess eligibility for a risk reducing agent. 2. If overall lifetime risk for the development of breast cancer is 20% or higher, the patient may qualify for future screening with alternating mammogram and breast MRI. [facility], , 05/21/2025 4:26 PM. Electronically signed and approved by: Mendez Dugan M.D. Radiologist
== END | disposition home or self-care (01) ==
LOC: RADMAMWWP 11:47
PROVIDERS: ATTEND Physician Assistant Medical
DX: Z12.31 Encounter for screening mammogram for malignant neoplasm of breast (principal); R92.313 Mammographic fatty tissue density, bilateral breasts; Z78.0 Asymptomatic menopausal state
CPT/HCPCS: 77063; 77067